=== PATIENT | male | born 1940 | race Caucasian/White ===

== ENCOUNTER → 2018-03-31 | Outpatient (CLI) | payer MEDICARE, MEDICAID ==
[2018-03-31 13:56] LABS: PROSTATIC SPECIFIC AG MONITOR < 0.01 NG/ML (< 4.0)
== END ==
LOC: M SMT 10:25
DX: Z85.46 Personal history of malignant neoplasm of prostate (principal)
CPT/HCPCS: 84153

== ENCOUNTER → 2021-01-07 | Outpatient (REF) | payer MEDICARE, MEDICAID ==
[2021-01-07 15:35] LABS: HEMATOCRIT 36.5 % (42.0-52.0); HEMOGLOBIN 11.1 g/dl (13.5-17.5); MEAN CORPUSCULAR HEMOGLOBIN 31.5 pg (27.0-33.0); MEAN CORPUSCULAR HGB CONC 30.4 g/dl (32.0-36.5); MEAN CORPUSCULAR VOLUME 103.7 fl (80.0-96.0); PLATELET COUNT, AUTOMATED 921 10^3/uL (150-450); RED BLOOD COUNT 3.52 10^6/uL (4.30-6.10); WHITE BLOOD COUNT 12.4 10^3/uL (4.0-10.0)
[2021-01-07 16:01] LABS: BLOOD UREA NITROGEN 25 MG/DL (7-18); CARBON DIOXIDE LEVEL 24 MEQ/L (21-32); CHLORIDE LEVEL 103 MEQ/L (98-107); CREATININE FOR GFR 0.76 MG/DL (0.70-1.30); GLOMERULAR FILTRATION RATE > 60.0 (>35); GLUCOSE, FASTING 137 MG/DL (70-100); POTASSIUM SERUM 5.3 MEQ/L (3.5-5.1); SODIUM LEVEL 139 MEQ/L (136-145)
== END ==
PROVIDERS: ATTEND Internal Medicine
DX: Z79.899 Other long term (current) drug therapy (principal)

== ENCOUNTER → 2021-01-26 | Outpatient (REF) | payer MEDICARE, MEDICAID ==
[~2021-01-26] MED LIST: ACET-683 PEG; ACET-683 PO; ACET1TAB55 PO; ALBU83IN INH; BACITAB PEG; BACITAB PO; CEFT1INJ5 IJ; DULC10SU2 PR; DULC5TAB PO; ELIQ5TAB PEG; ELIQ5TAB PO; ENEMENE PR; ENSU1LIQ36 PO; ESOM1CAP5 PO; FEVE650S3 PR; GNPLIQ18 PO; IPRA0.00 NEB; LEVA0.6322 INH; LEVA0.636 INH; LEVA1.25 INH; MECL-136 PO; METO1TAB87 PEG; METO1TAB87 PO; METO50TA7 PO; MILK400S12 PO; MILKSUS3 PEG; MILKSUS3 PO; MM S100C PO; MOM30SS PO; MOXI1TAB PO; MOXI400T11 PO; OLAN1TAB16 PEG; OLAN1TAB16 PO; PRED10TA2 PO; ROBI1CAP PO; SENN-23 PEG; SENN-23 PO; SENN1TAB41 PO; VENTAER INH; ZITH250T PO; [UNRECOGNIZED DRUG - CODE] PEG; [UNRECOGNIZED DRUG - CODE] PO
[2021-01-26 15:21] LABS: BASO # 0.1 10^3/uL (0.0-0.2); BASO % 0.2 % (0.0-1.0); EOS # 0.2 10^3/uL (0.0-0.5); EOS % 0.9 % (0.0-3.0); HEMATOCRIT 38.6 % (42.0-52.0); HEMOGLOBIN 11.5 g/dl (13.5-17.5); LYMPH # 2.7 10^3/uL (1.5-5.0); MEAN CORPUSCULAR HEMOGLOBIN 31.3 pg (27.0-33.0); MEAN CORPUSCULAR HGB CONC 29.8 g/dl (32.0-36.5); MEAN CORPUSCULAR VOLUME 104.9 fl (80.0-96.0); MONO # 2.2 10^3/uL (0.0-0.8); MONO % 9.1 % (2.0-8.0); NEUTROPHILS % 77.9 % (36.0-66.0); PLATELET COUNT, AUTOMATED 636 10^3/uL (150-450); RED BLOOD COUNT 3.68 10^6/uL (4.30-6.10)
[2021-01-26 15:52] LABS: WHITE BLOOD COUNT 24.4 10^3/uL (4.0-10.0)
[2021-01-26 16:02] LABS: BLOOD UREA NITROGEN 20 MG/DL (7-18); CALCIUM LEVEL 8.7 MG/DL (8.8-10.2); CARBON DIOXIDE LEVEL 30 MEQ/L (21-32); CHLORIDE LEVEL 104 MEQ/L (98-107); CREATININE FOR GFR 0.89 MG/DL (0.70-1.30); GLOMERULAR FILTRATION RATE > 60.0 (>35); GLUCOSE, FASTING 92 MG/DL (70-100); NT-PRO BNP 923 PG/ML (<450); POTASSIUM SERUM 4.7 MEQ/L (3.5-5.1); SODIUM LEVEL 141 MEQ/L (136-145)
== END ==
PROVIDERS: ATTEND Internal Medicine
DX: R05 Cough (principal); I51.7 Cardiomegaly; M85.88 Other specified disorders of bone density and structure, other site; Z87.81 Personal history of (healed) traumatic fracture

== ENCOUNTER → 2021-01-26 | Outpatient (REF) | payer MEDICARE, MEDICAID ==
--- NOTE | 2021-01-26 16:50 | REP ---
INDICATION: COUGH. COMPARISON: No comparison study. TECHNIQUE: Two views.. FINDINGS: The lungs are exposed at a relatively low level of inspiration. There are old healed rib fractures on the left and there is an old healed clavicle fracture on the left. Diffuse osteopenia is seen. The thoracic aorta is tortuous. The heart is mildly enlarged. There are increased parenchymal markings in the lung bases bilaterally consistent with bibasilar infiltrates. Pulmonary vasculature is not increased. IMPRESSION: Bibasilar infiltrate pattern. Cardiomegaly. Old healed fractures on the left.. <Electronically signed by Roberto Bean > 01/26/21 [id number]
== END ==
PROVIDERS: ATTEND Internal Medicine
DX: I51.7 Cardiomegaly (principal); M85.88 Other specified disorders of bone density and structure, other site; Z87.81 Personal history of (healed) traumatic fracture

== ENCOUNTER → 2021-01-28 | Outpatient (REF) | payer MEDICARE, MEDICAID ==
[~2021-01-28] MED LIST changes: -ACET-683 PEG; -ACET1TAB55 PO; -BACITAB PEG; -BACITAB PO; -DULC10SU2 PR; -ELIQ5TAB PEG; -ENSU1LIQ36 PO; -ESOM1CAP5 PO; -FEVE650S3 PR; -GNPLIQ18 PO; -IPRA0.00 NEB; -LEVA0.6322 INH; -LEVA0.636 INH; -LEVA1.25 INH; -METO1TAB87 PEG; -METO1TAB87 PO; -MILKSUS3 PEG; -MILKSUS3 PO; -MOM30SS PO; -MOXI1TAB PO; -MOXI400T11 PO; -OLAN1TAB16 PEG; -PRED10TA2 PO; -SENN-23 PEG; -SENN-23 PO; -SENN1TAB41 PO; -[UNRECOGNIZED DRUG - CODE] PEG
[2021-01-28 10:53] LABS: HEMATOCRIT 38.1 % (42.0-52.0); HEMOGLOBIN 11.4 g/dl (13.5-17.5); MEAN CORPUSCULAR HEMOGLOBIN 31.2 pg (27.0-33.0); MEAN CORPUSCULAR HGB CONC 29.9 g/dl (32.0-36.5); MEAN CORPUSCULAR VOLUME 104.4 fl (80.0-96.0); PLATELET COUNT, AUTOMATED 652 10^3/uL (150-450); RED BLOOD COUNT 3.65 10^6/uL (4.30-6.10); WHITE BLOOD COUNT 12.4 10^3/uL (4.0-10.0)
[2021-01-28 11:21] LABS: BLOOD UREA NITROGEN 24 MG/DL (7-18); CALCIUM LEVEL 8.8 MG/DL (8.8-10.2); CARBON DIOXIDE LEVEL 28 MEQ/L (21-32); CHLORIDE LEVEL 105 MEQ/L (98-107); CREATININE FOR GFR 0.94 MG/DL (0.70-1.30); GLOMERULAR FILTRATION RATE > 60.0 (>35); GLUCOSE, FASTING 177 MG/DL (70-100); POTASSIUM SERUM 4.2 MEQ/L (3.5-5.1); SODIUM LEVEL 141 MEQ/L (136-145)
== END ==
PROVIDERS: ATTEND Internal Medicine
DX: I48.91 Unspecified atrial fibrillation (principal)

== ENCOUNTER 2021-01-31 20:24 | Inpatient (IN) | payer MEDICARE, MEDICAID ==
[~2021-01-31] VITALS: Ht 167.6 cm; Wt 73.2 kg
[2021-01-31] MEDS ORDERED: METO50TA7 PO (21:15)
[2021-01-31] MEDS ORDERED: ALBU83IN INH (21:15)
[2021-01-31] MEDS ORDERED: ROBI1CAP PO (21:15)
[2021-01-31] MEDS ORDERED: ZITH250T PO (21:15)
[2021-01-31] MEDS ORDERED: OLAN1TAB16 PO (21:15)
[2021-01-31] MEDS ORDERED: ENEMENE PR (21:15)
[2021-01-31] MEDS ORDERED: ACET-683 PO (21:15)
[2021-01-31] MEDS ORDERED: MILK400S12 PO (21:15)
[2021-01-31] MEDS ORDERED: CEFT1INJ5 IJ (21:15)
[2021-01-31] MEDS ORDERED: VENTAER INH (21:15)
[2021-01-31] MEDS ORDERED: ELIQ5TAB PO (21:15)
[2021-01-31] MEDS ORDERED: MM S100C PO ×2 (21:15)
[2021-01-31] MEDS ORDERED: MECL-136 PO (21:15)
[2021-01-31] MEDS ORDERED: DULC5TAB PO (21:15)
[2021-01-31 21:35] LABS: BASO # 0.1 10^3/uL (0.0-0.2); BASO % 0.3 % (0.0-1.0); EOS # 0.3 10^3/uL (0.0-0.5); EOS % 1.4 % (0.0-3.0); HEMATOCRIT 40.7 % (42.0-52.0); HEMOGLOBIN 12.5 g/dl (13.5-17.5); LYMPH # 2.5 10^3/uL (1.5-5.0); MEAN CORPUSCULAR HGB CONC 30.7 g/dl (32.0-36.5); MONO # 1.4 10^3/uL (0.0-0.8); MONO % 6.5 % (2.0-8.0); NEUTROPHILS # 16.6 10^3/uL (1.5-8.5); NEUTROPHILS % 79.1 % (36.0-66.0); PLATELET COUNT, AUTOMATED 717 10^3/uL (150-450); RED BLOOD COUNT 4.03 10^6/uL (4.30-6.10); WHITE BLOOD COUNT 20.9 10^3/uL (4.0-10.0)
[2021-01-31 22:09] LABS: ALBUMIN 3.4 GM/DL (3.2-5.2); ALT/SGPT 21 U/L (12-78); BILIRUBIN,DIRECT < 0.1 MG/DL (0.0-0.2); BILIRUBIN,TOTAL 0.3 MG/DL (0.2-1.0); BLOOD UREA NITROGEN 21 MG/DL (7-18); CALCIUM LEVEL 9.1 MG/DL (8.8-10.2); CARBON DIOXIDE LEVEL 28 MEQ/L (21-32); CHLORIDE LEVEL 104 MEQ/L (98-107); CREATININE FOR GFR 0.76 MG/DL (0.70-1.30); GLOMERULAR FILTRATION RATE > 60.0 (>35); GLUCOSE, FASTING 128 MG/DL (70-100); NT-PRO BNP 388 PG/ML (<450); POTASSIUM SERUM 5.3 MEQ/L (3.5-5.1); SODIUM LEVEL 138 MEQ/L (136-145); TOTAL PROTEIN 8.1 GM/DL (6.4-8.2)
[2021-01-31] MEDS ORDERED: IPRATROPIUM 0.5MG/ALBUTEROL 2.5MG INH SOL UD 3ML (DUONEB) NEB ONE (22:10)
--- NOTE | 2021-01-31 22:21 | REPVR ---
PROCEDURE INFORMATION: Exam: XR Chest Exam date and time: 01/31/2021 9:28 PM Age: 80 years old Clinical indication: Dyspnea/cough TECHNIQUE: Imaging protocol: XR of the chest. Views: 1 view. COMPARISON: CR Chest, 2 view PA, Lat 01/26/2021 4:38 PM (The report from this study was not available for review at the time of this interpretation.) FINDINGS: Lungs: There are bibasilar airspace opacities, without significant change compared to the prior chest x-ray on 01/26/2021. The lung volumes are low. No pulmonary edema is noted. Pleural spaces: Unremarkable. No pleural effusion. No pneumothorax. Heart/Mediastinum: Unremarkable. No cardiomegaly. Vasculature: There are atherosclerotic calcifications of the aortic arch. Bones/joints: There are old healed bilateral rib fractures. There are degenerative changes involving the thoracic spine. IMPRESSION: Bibasilar airspace opacities, without significant change compared to the prior chest x-ray on 01/26/2021, which may represent pneumonia or atelectasis. Electronically signed by: Dino Sanchez On 01/31/2021 22:21:08 PM
[2021-01-31 23:36] LABS: RSV AMPLIFICATION NEGATIVE (NEGATIVE)
[2021-01-31 23:48] LABS: APPEARANCE, URINE CLOUDY (CLEAR); BACTERIA, URINE AUTO 1+ (NEGATIVE); BILIRUBIN, URINE AUTO NEGATIVE (NEGATIVE); BLOOD, URINE BLOOD 2+ (NEGATIVE); COLOR, URINE YELLOW (YELLOW); GLUCOSE, URINE (UA) AUTO NEGATIVE (NEGATIVE); KETONE, URINE AUTO NEGATIVE (NEGATIVE); LEUKOCYTE ESTERASE, URINE AUTO 3+ (NEGATIVE); MUCUS, URINE SMALL (NEGATIVE); NITRITE, URINE AUTO NEGATIVE (NEGATIVE); PROTEIN, URINE AUTO 1+ mg/dL (NEGATIVE); RBC, URINE AUTO 60 /HPF (0-3); SPECIFIC GRAVITY URINE AUTO 1.018 (1.002-1.035); SQUAMOUS EPITHELIAL CELL UR AU 0 /HPF (0-6); UROBILINOGEN, URINE AUTO 0.2 mg/dL (0.0-2.0); WBC, URINE AUTO 112 /HPF (0-3)
[2021-02-01] MEDS ORDERED: [UNRECOGNIZED DRUG - CODE] PO (00:34)
[2021-02-01] MEDS ORDERED: HOME MED LIST COMPLETE! XX SCH (00:35)
[2021-02-01] MEDS ORDERED: NS 1,000 ML IV SCH (01:55)
[2021-02-01] MEDS ORDERED: ALBUTEROL SULFATE 2.5 MG/0.5 ML INH NEB SOLN INH PRN (02:05)
[2021-02-01] MEDS ORDERED: methylPREDNISolone 125MG 2ML VIAL IV ONE (02:05)
[2021-02-01] MEDS ORDERED: BISACODYL 5 MG TAB PO PRN (02:05)
[2021-02-01 03:20] VITALS: BP 151/83
[2021-02-01] MEDS: LEVALBUTEROL 1.25 MG/0.5 ML CONCENTRATE NEB NEB SCH ×2 (04:00→07:22)
[2021-02-01] MEDS: IPRATROPIUM 0.02% SOLN 0.5MG 2.5ML NEB NEB SCH ×2 (04:00→07:22)
--- NOTE | 2021-02-01 04:34 | HPEPDOC ---
General Date of Admission 02/01/2021 Date of Service: Feb 01, 2021 Chief Complaint The patient is a 80-year-old male admitted with a reason for visit of Acute Respiratory Failure, Aspiration Pneumonia from long-term. Source: Patient, RN notes reviewed History of Present Illness [place] is an 80-year-old white male with significant history of A. fib, OA, prostate CA, chronic indwelling Mcdonald, hypertension, dementia and smoking who reportedly presents with shortness of breath and cough after reported choking episode with food at [facility]. Patient alert and oriented x1-2. He is a very poor historian. Audible wheezing during exam and abdominal breathing. SPO2 saturation 100% on 3 L nasal cannula. Reportedly, he had Covid pneumonia in September and has been requiring oxygen nasal cannula 2 L. Of note, chest x-ray without significant change from previous which showed bibasilar opacities atelectasis versus pneumonia; + leukocytosis 26.2, lactic pending. ABG pending Patient will be admitted for further evaluation management of presenting concerns. Home Medications Scheduled Acetaminophen (Acetaminophen) 500 Mg Tablet, 1,000 MG PO TID, (Reported) Albuterol Sulf (Albuterol Sulfate) 2.5 Mg/3 Ml Vial.neb, 2.5 MG INH Q6HP, (Reported) Apixaban (Eliquis) 5 Mg Tablet, 5 MG PO BID, (Reported) Azithromycin (Zithromax) 250 Mg Tablet, 250 MG PO DAILY, (Reported) started 01/28/21 x 4 days Bisacodyl (Dulcolax) 5 Mg Tablet.dr, 10 MG PO DAILYPRN, (Reported) Ceftriaxone Sodium (Ceftriaxone) 1 Gm Vial, 1 GM IJ DAILY, (Reported) Docusate Sodium (Stool Softener) 100 Mg Capsule, 100 MG PO DAILY, (Reported) Guaifenesin/Dextromethorphan (Adult Wal-Tussin Dm Syrup) 118 Ml Syrup, 20 ML PO TID, (Reported) Magnesium Hydroxide (Milk of Magnesia) 400 Mg/5 Ml Oral.susp, 2,400 MG PO DAILYPRN, (Reported) Metoprolol Tartrate (Metoprolol Tartrate) 50 Mg Tablet, 50 MG PO BID, (Reported) Olanzapine (Olanzapine) 5 Mg Tablet, 5 MG PO DAILY, (Reported) Scheduled PRN Albuterol Sulfate (Ventolin Hfa) 18 Gm Hfa.aer.ad, 4 PUFFS INH QID PRN for DYSPNEA, (Reported) Meclizine HCl (Meclizine HCl) 12.5 Mg Tablet, 12.5 MG PO BIDP PRN for VERTIGO/DIZZINESS, (Reported) Miscellaneous Medications Sodium Phosphate,[place]-Dibasic (Enema) 133 Ml Enema, 1 ELODIA HI, (Reported) Allergies Coded Allergies: No Known Drug Allergies (Verified Allergy, Unknown, 01/31/21) Past Medical History Medical History Prostate cancer, chronic indwelling Mcdonald, A. fib, dementia, smoking and tobacco abuse history, CVA, HDL Per chart review Surgical History "Pancreas removal" Per chart review, right and left hip surgery Social History * Smoker: former Smoker Alcohol: Denies Drugs: denies Recent Travel/Sick Contacts: Reports: Recent sick contacts (Patient arrives from [facility]); Denies: Recent travel Psychosocial History: No pertinent psych hx Patient recently treated for pneumonia Rocephin and doxycycline; arrives from [facility]. A-FIB/CHADSVASC A-FIB History Current/History of A-Fib/PAF?: Yes Current PO Anticoag Therapy: Yes Review of Systems Other systems Patient poor historian Physical Examination General Exam: Positive: Alert, Cooperative, Mild Distress Eye Exam: Positive: PERRLA, Conjunctiva & lids normal, EOMI; Negative: Sclera icteric ENT Exam: Positive: Atraumatic, Mucous membr. moist/pink, Pharynx Normal Neck Exam: Positive: Supple; Negative: JVD, thyromegaly Chest Exam: Positive: Wheezing Heart Exam: Positive: Tachycardic Telemetry: Positive: Atrial fibrillation Abdomen Exam: Positive: Normal bowel sounds, Soft; Negative: Tenderness, Hepatospenomegaly Extremity Exam: Positive: Edema (1+ edema), Normal pulses; Negative: Clubbing, Cyanosis, Tenderness Skin Exam: Positive: Nl turgor and temperature; Negative: Breakdown, Lesion Neuro Exam: Positive: Normal Speech, Sensation Intact Psych Exam: Positive: Mood NL; Negative: Memory Intact Vital Signs Vital Signs Date Time Temp Pulse Resp B/P (MAP) Pulse Ox O2 Delivery O2 Flow Rate FiO2 02/01/21 03:00 100 02/01/21 02:30 18 132/78 (96) 93 Nasal Cannula 3.0 01/31/21 20:30 99.2 Laboratory Data Labs 24H Laboratory Tests 2 01/31/21 21:30: Immature Granulocyte % (Auto) 0.7, Neutrophils (%) (Auto) 79.1H, Lymphocytes (%) (Auto) 12.0L, Monocytes (%) (Auto) 6.5, Eosinophils (%) (Auto) 1.4, Basophils (%) (Auto) 0.3, Neutrophils # (Auto) 16.6H, Lymphocytes # (Auto) 2.5, Monocytes # (Auto) 1.4H, Eosinophils # (Auto) 0.3, Basophils # (Auto) 0.1, Nucleated Red Blood Cells % (auto) 0.2H, POC Troponin I (Misc) 0.01, Anion Gap 6L, Glomerular Filtration Rate > 60.0, Calcium Level 9.1, Total Bilirubin 0.3, Direct Bilirubin < 0.1, Aspartate Amino Transf (AST/SGOT) 33, Alanine Aminotransferase (ALT/SGPT) 21, Alkaline Phosphatase 111, TO-Yqk-O-Type Natriuretic Peptide 388, Total Protein 8.1, Albumin 3.4, Albumin/Globulin Ratio 0.7 01/31/21 22:40: Coronavirus (COVID-19)(PCR) NEGATIVE, Influenza Type A (RT-PCR) NEGATIVE, Influenza Type B (RT-PCR) NEGATIVE, Respiratory Syncytial Virus (PCR) NEGATIVE 01/31/21 23:31: Urine Color YELLOW, Urine Appearance CLOUDYH, Urine pH 5.0, Urine Specific [place] 1.018, Urine Protein 1+H, Urine Glucose (Auto)(UA) NEGATIVE, Urine Ketones (Auto) NEGATIVE, Urine Blood 2+H, Urine Nitrite NEGATIVE, Urine Bilirubin NEGATIVE, Urine Urobilinogen 0.2, Urine Leukocyte Esterase (Auto) 3+H, Urine WBC (Auto) 112H, Urine RBC (Auto) 60H, Urine Hyaline Casts (Auto) 0, Urine Bacteria (Auto) 1+H, Urine Squamous Epithelial Cells 0, Urine Mucus (Auto) SMALL, Urine Sperm (Auto) CBC/BMP Laboratory Tests 01/31/21 21:30 RAD Interpretation STUDY: CXR Rad Actions: Report Reviewed RAD Interpretation: Unchanged (Compared to January 26, 2021 per radiology) Assessment/Plan 1. Acute respiratory failure secondary to aspiration in patient with recent pneumonia: Likely underlying COPD as patient former smoker. Patient with excessive wheeze during exam. -Monitor patient, respiratory status, breathing treatments every 4 hours. Solu- Medrol. -Patient recently finished azithromycin and still had another dose of Rocephin prior to completion. Given patient leukocytosis and worsening work of breathing with insult of aspiration -will expand coverage to Vanco and Zosyn. Check pro- Joshua, lactic and blood cultures; consider de-escalation accordingly. -N.p.o., aspiration precautions and appreciate POND SCALER evaluation. 2. Hyperkalemia, mild: K5.3 unknown last BM. Gently hydrate patient, recheck lab. Consider Kayexalate dose pend bedside swallow eval. 3. A. fib: Patient mildly tachycardic 105 monitor, telemetry. Continue home meds. Patient may require IV for an interim as he is n.p.o. given aspiration precautions. 4. Chronic indwelling Mcdonald in patient with history of prostate cancer: Monitor patient, I's and O's. He has a history of pulling out his catheter. Check UA. 5. Right hip pain: Patient is poor historian but does report trouble moving right leg. He is obviously deconditioned but trouble with range of motion as patient very stiff. Given per chart review history of right and left hip surgeries; will obtain x-ray to ensure patient can safely work physical therapy 6. Dementia and deconditioning: Monitor patient, fall risk. PT for therapeutic purposes. De-escalation techniques as required. DVT: SCDs and OAC CODE STATUS: Full Dispo: Anticipate back to [place] once patient medically stable Plan / VTE VTE Prophylaxis Ordered?: Yes TOSHIA BLANCO NP Feb 01, 2021 04:10
[2021-02-01] MEDS ORDERED: FLUID PLACE HOLDER IV SCH (04:55)
[2021-02-01] MEDS ORDERED: VANCOMYCIN HCL IV SCH (04:55)
[2021-02-01 05:18] LABS: BASO # 0.1 10^3/uL (0.0-0.2); BASO % 0.3 % (0.0-1.0); EOS # 0.1 10^3/uL (0.0-0.5); EOS % 0.5 % (0.0-3.0); HEMATOCRIT 36.5 % (42.0-52.0); HEMOGLOBIN 11.4 g/dl (13.5-17.5); LYMPH # 2.7 10^3/uL (1.5-5.0); LYMPH % 11.2 % (24.0-44.0); MEAN CORPUSCULAR HEMOGLOBIN 31.6 pg (27.0-33.0); MEAN CORPUSCULAR HGB CONC 31.2 g/dl (32.0-36.5); MEAN CORPUSCULAR VOLUME 101.1 fl (80.0-96.0); MONO # 1.3 10^3/uL (0.0-0.8); MONO % 5.5 % (2.0-8.0); NEUTROPHILS # 19.3 10^3/uL (1.5-8.5); NEUTROPHILS % 81.7 % (36.0-66.0); PLATELET COUNT, AUTOMATED 676 10^3/uL (150-450); RED BLOOD COUNT 3.61 10^6/uL (4.30-6.10); WHITE BLOOD COUNT 23.7 10^3/uL (4.0-10.0)
[2021-02-01] MEDS: PIPERACILLIN/TAZOBACTAM SOD 4.5 GM in D5W MINI-BAG PLUS 50 ML IV SCH ×4 (05:23→23:52)
[2021-02-01 05:45] LABS: BLOOD UREA NITROGEN 19 MG/DL (7-18); CALCIUM LEVEL 8.7 MG/DL (8.8-10.2); CARBON DIOXIDE LEVEL 28 MEQ/L (21-32); CHLORIDE LEVEL 106 MEQ/L (98-107); CREATININE FOR GFR 0.71 MG/DL (0.70-1.30); GLOMERULAR FILTRATION RATE > 60.0 (>35); GLUCOSE, FASTING 124 MG/DL (70-100); NT-PRO BNP 700 PG/ML (<450); POTASSIUM SERUM 3.9 MEQ/L (3.5-5.1); SODIUM LEVEL 139 MEQ/L (136-145)
[2021-02-01] MEDS: VANCOMYCIN HCL 1,000 MG, VIAL MATE ADAPTER 1 EACH in NS 250 ML IV SCH ×2 (06:28→18:01)
[2021-02-01] MEDS ORDERED: VANCOMYCIN HCL 500 MG in D5W MINI-BAG PLUS 100 ML IV ONE (07:00)
[2021-02-01 08:00] VITALS: BP 127/67
--- NOTE | 2021-02-01 08:59 | REP ---
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 COMPARISON: None. TECHNIQUE: Frontal and frogleg lateral views of the right hip were obtained. FINDINGS: There has been medullary nail and compression screw fixation of an intertrochanteric fracture of the right femur. There is no evidence of acute fracture. There is mild arthritis of the right hip. There are vascular calcifications in the right hemipelvis and right thigh. Fiducial markers are noted in the area of the prostate gland. IMPRESSION: Status post ORIF, intertrochanteric fracture right femur. Mild arthritis of the right hip. Other findings as noted. <Electronically signed by Evgeny Alvarado > 02/01/21 [id number]
[2021-02-01] MEDS: OLANZapine 5 MG TAB PO SCH (09:00)
[2021-02-01] MEDS: METOPROLOL TART 50 MG TAB PO SCH ×2 (09:00→20:33)
[2021-02-01] MEDS: APIXABAN 5 MG TAB (ELIQUIS) PO SCH ×2 (09:00→20:33)
[2021-02-01] MEDS: LACTOBACILLUS ACIDOPHILUS CAP (BACID) PO SCH (09:00)
[2021-02-01] MEDS: guaiFENesin DM LIQ 10ML UD PO SCH ×4 (09:00→20:33)
[2021-02-01] MEDS: DOCUSATE SODIUM 100MG CAPSULE PO SCH (09:00)
[2021-02-01] MEDS: methylPREDNISolone 40MG 1ML VIAL IV SCH ×2 (10:42→18:01)
[2021-02-01 11:10] LABS: FERRITIN 138 NG/ML (26-388); IRON (FE) 19 UG/DL (65-175); PERCENT SATURATION 8.2 % (19.7-50.0); TOTAL IRON BINDING CAPACITY 233 UG/DL (250-450)
[2021-02-01] MEDS ORDERED: LEVALBUTEROL 1.25 MG/0.5 ML CONCENTRATE NEB INH PRN (11:10)
--- NOTE | 2021-02-01 11:10 | IPNPDOC ---
Text Note Date of Service The patient was seen on 02/01/21. NOTE Subjective: Patient is an 80-year-old male with a PMHx of Dementia, A. fib (on Eliquis), HTN, Hx of CVA, DLP, Prostate CA, Pancreas removal?, Chronic indw elling Mcdonald, Hx of COVID19 PNA (09/2020), who presented to the ER after reporting a choking episode while at [facility]. Patient was noted to be hypoxic and was brought to the emergency room for further evaluation. In the emergency room, patient had an x-ray completed that revealed evidence of bibasilar opacities suggestive of atelectasis versus pneumonia. Patient was admitted to the hospital service for further evaluation and treatment. Patient was seen and examined at the bedside. Currently patient is laying in bed, appears to be comfortable, not in any acute distress, minimally conversive but denies any significant pain. Objective: Vitals (See below) General: Lying in bed, no acute distress, comfortable, AAOx3 HEENT: NC, AT CVS: +S1S2 Lungs: Fair air entry b/l, -w/r/r Abdomen: Soft, ND, NT Extremities: Trace LE edema, - Calf tenderness Imaging: CXR 01/26: Bibasilar infiltrate pattern. Cardiomegaly. Old healed fractures on the left.. CXR 01/31: Bibasilar airspace opacities, without significant change compared to the prior chest x-ray on 01/26/2021, which may represent pneumonia or atelectasis. R hip XR 02/01: Status post ORIF, intertrochanteric fracture right femur. Mild arthritis of the right hip. Other findings as noted. Assessment and plan: Shortness of breath / Acute hypoxic respiratory failure - possibly 2/2 PNA / aspiration, possibly 2/2 suspected COPD exacerbation - Currently patient appears to be breathing relatively fine - Currently is on 3 L nasal cannula oxygen - Imaging noted above - Blood cultures 02/01: Pending - Will order sputum cultures - c/w Vancomycin and Zosyn (Day #1) Suspected COPD exacerbation - c/w Solumedrol - c/w inhaled therapy as ordered Suspected aspiration - Currently NPO; will have bedside swallow evaluation today if possible - Speech therapy will be consulted s/p Hyperkalemia Chronic A. fib - c/w rate control Metoprolol - c/ full anticoagulation with Eliquis Chronic indwelling Mcdonald 2/2 prostate cancer - UA positive for infection on 01/26: Multiple organisms noted - Repeat UA pending Right hip pain / Deconditioning - Imaging noted above - c/w Tylenol - c/w PT and OT Dementia / Behavioral problems - c/w Olanzapine GI prophylaxis - c/w DVT prophylaxis - c/w full anticoagulation with Eliquis Code status: - Full code Disposition: - Awaiting clinical improvement Lloyd COLLADO, I+O VSLloyd I+O Laboratory Tests 01/31/21 21:30 02/01/21 04:59 Vital Signs Date Time Temp Pulse Resp B/P (MAP) Pulse Ox O2 Delivery O2 Flow Rate FiO2 02/01/21 08:00 97.4 67 18 127/67 (87) 96 Nasal Cannula 3.0 I&O- Last 24 Hours up to 6 AM 02/01/21 06:00 Intake Total 0 ml Output Total 475 ml Balance -475 ml HSANNON MERCER MD Feb 01, 2021 11:10
[2021-02-01] MEDS: LEVALBUTEROL 1.25 MG/0.5 ML CONCENTRATE NEB INH SCH ×3 (11:29→20:00)
[2021-02-01 12:00] VITALS: BP_SYST 142
[2021-02-01 16:00] VITALS: BP 150/74
[2021-02-01 20:00] VITALS: BP 128/63
[2021-02-02] VITALS: BP 122/59
[2021-02-02] MEDS: methylPREDNISolone 40MG 1ML VIAL IV SCH ×3 (02:42→19:00)
[2021-02-02 04:00] VITALS: BP 154/69
[2021-02-02 05:18] LABS: BASO % 0.2 % (0.0-1.0); HEMATOCRIT 37.2 % (42.0-52.0); HEMOGLOBIN 11.5 g/dl (13.5-17.5); LYMPH # 1.8 10^3/uL (1.5-5.0); LYMPH % 11.2 % (24.0-44.0); MEAN CORPUSCULAR HEMOGLOBIN 30.7 pg (27.0-33.0); MEAN CORPUSCULAR HGB CONC 30.9 g/dl (32.0-36.5); MEAN CORPUSCULAR VOLUME 99.5 fl (80.0-96.0); MONO # 0.6 10^3/uL (0.0-0.8); MONO % 3.7 % (2.0-8.0); NEUTROPHILS # 13.1 10^3/uL (1.5-8.5); NEUTROPHILS % 83.2 % (36.0-66.0); PLATELET COUNT, AUTOMATED 728 10^3/uL (150-450); RED BLOOD COUNT 3.74 10^6/uL (4.30-6.10); WHITE BLOOD COUNT 15.7 10^3/uL (4.0-10.0)
[2021-02-02 05:33] LABS: VANCOMYCIN LEVEL TROUGH 19.6 UG/ML (10.0-20.0)
[2021-02-02] MEDS: PIPERACILLIN/TAZOBACTAM SOD 4.5 GM in D5W MINI-BAG PLUS 50 ML IV SCH (05:37)
[2021-02-02] MEDS: VANCOMYCIN HCL 1,000 MG, VIAL MATE ADAPTER 1 EACH in NS 250 ML IV SCH (06:09)
[2021-02-02 07:58] VITALS: BP 136/61
--- NOTE | 2021-02-02 08:13 | IPNPDOC ---
Text Note Date of Service The patient was seen on 02/02/21. Patient was admitted to the hospital for Pneumonia on 02/01/21. Patient was seen by medical team laying supine on his bed. Patient appeared to be in no distress, but was agitated and uncooperative. Review of systems: Patient denies headaches, chest pain, palpitations, SOB, difficulty breathing, extremity pain, ABD pain, Urinary pain, swelling of his extremities, tingling or numbness. Physical exam: General: Patients's temperature was normal. HEENT: On visual inspection thyroid and lymph nodes appear normal. Lungs; Patient's lung sounds are clear and equal BL. SPO2 is 88% at assessment - normal for COPD Heart: Telemetry showed the patient continues to be in Afib but without tachycardia - HR was in the 80s at rest. On auscultation of heart sounds a systolic ejection murmur is found. ABD: No pain with palpation and normal bowel sounds on auscultation Extremities: Patient pulses pedal and posterior tibial were both 2/4 and equal BL. Psych: Patient is alert and oriented *2 - patient could not say where he was, but knew that it was morning and knew who the president was. Imaging: CXR 01/26: Bibasilar infiltrate pattern. Cardiomegaly. Old healed fractures on the left. CXR 01/31: Bibasilar airspace opacities, without significant change compared to the prior chest x-ray on 01/26/2021, which may represent pneumonia or atelectasis. R hip XR 02/01: Status post ORIF, intertrochanteric fracture right femur. Mild arthritis of the right hip. Other findings as noted. Assessment: 80 year old male with previous history of COPD, Afib, Dementia, A. fib (on Eliquis), HTN, Hx of CVA, DLP, Prostate CA, Pancreas removal?, Chronic indwelling Mcdonald, Hx of COVID19 PNA (09/2020). Patient presented to the ED from nursing facility because of difficulty breathing. Patient was found to have pneumonia based on clinical symptoms and Chest X-ray. Patient was started on Zosyn and Vancomycin to resolve infection. Patient's difficulty breathing has resolved. Patient's lab work does show Leukocytosis and Thrombocytosis which co uld be from pneumonia. Patient should be followed up after resolution of antibiotics to make sure lab values go back down. Plan: Shortness of breath / Acute hypoxic respiratory failure - possibly 2/2 PNA / aspiration, possibly 2/2 suspected COPD exacerbation - Currently patient appears to be breathing relatively fine - Currently is on 3 L nasal cannula oxygen as needed - when assessed patient was not using oxygen - At baseline patient does not use oxygen - Imaging noted above - Blood cultures 02/01: Pending - sputum cultures - gram stain - Gram positive cocci in clusters or chains, - Will start Moxifloxacin; Will DC Vancomycin and Zosyn (Day #2) Leukocytosis and Thrombocytosis - Likely from Pneumonia - Patient should be followed up with after he finishes his prescription of antibiotics is finished to make sure elevated WBC and platelets resolves. If the leukocytosis and thrombocytosis does not resolve patient should be referred to [facility]. Suspected COPD exacerbation - c/w Solumedrol - c/w inhaled therapy as ordered Suspected aspiration - Patient was evaluated with swallow test and is able to take foods again without aspiration risk. s/p Hyperkalemia Chronic A. fib - c/w rate control Metoprolol - c/ full anticoagulation with Eliquis Chronic indwelling Mcdonald 2/2 prostate cancer - UA positive for infection on 01/26: Multiple organisms noted - Repeat UA pending Right hip pain - likely 2/2 recent R hip fracture and repair - Imaging noted above - c/w Tylenol - Patient is partial weight bearing to that leg as per orthopedic surgery in the past - Has been non-compliant with this in the past; is Julius lift at [facility] Dementia / Behavioral problems - c/w Olanzapine DVT prophylaxis - c/w full anticoagulation with Eliquis Code status: - Full code Disposition: - Depending on clinical symptoms patient may be discharged tomorrow. VS,Fishbone, I+O VS, Fishbone, I+O Laboratory Tests 02/02/21 04:40 Vital Signs Date Time Temp Pulse Resp B/P (MAP) Pulse Ox O2 Delivery O2 Flow Rate FiO2 02/02/21 07:58 98.4 86 24 136/61 (86) 91 Room Air 02/02/21 04:00 2.0 I&O- Last 24 Hours up to 6 AM 02/02/21 06:00 Intake Total 730 ml Output Total 1075 ml Balance -345 ml GME ATTESTATION GME ATTESTATION My faculty preceptor for this patient encounter was physically present during the encounter and was fully available. All aspects of the patient interview, examination, medical decision making process, and medical care plan development were reviewed and approved by the faculty preceptor. The faculty preceptor is aware and concurs with the plan as stated in the body of this note and will attest to such by his/her cosignature. ATTENDING NOTE I, Shannon Mercer, have independently examined this patient and performed my own physical exam, as well as reviewed the documentation and edited where necessary. I have discussed in detail with the resident / student the findings and plan of treatment as documented by the resident / student and edited their note. I agree with their findings and treatment plan and have edited their documentation. I will continue to follow the patient during this hospital stay. NORA GARCIA S-3 Feb 02, 2021 08:13 SHANNON MERCER MD Feb 02, 2021 14:09
[2021-02-02] MEDS: LEVALBUTEROL 1.25 MG/0.5 ML CONCENTRATE NEB INH SCH ×4 (08:18→19:31)
[2021-02-02 08:22] LABS: BLOOD UREA NITROGEN 27 MG/DL (7-18); CALCIUM LEVEL 9.1 MG/DL (8.8-10.2); CARBON DIOXIDE LEVEL 27 MEQ/L (21-32); CHLORIDE LEVEL 108 MEQ/L (98-107); CREATININE FOR GFR 1.02 MG/DL (0.70-1.30); GLOMERULAR FILTRATION RATE > 60.0 (>35); GLUCOSE, FASTING 139 MG/DL (70-100); POTASSIUM SERUM 4.7 MEQ/L (3.5-5.1); SODIUM LEVEL 142 MEQ/L (136-145)
[2021-02-02] MEDS: METOPROLOL TART 50 MG TAB PO SCH ×2 (09:00→21:08)
[2021-02-02] MEDS: LACTOBACILLUS ACIDOPHILUS CAP (BACID) PO SCH (10:28)
[2021-02-02] MEDS: OLANZapine 5 MG TAB PO SCH (10:28)
[2021-02-02] MEDS: DOCUSATE SODIUM 100MG CAPSULE PO SCH (10:28)
[2021-02-02] MEDS: APIXABAN 5 MG TAB (ELIQUIS) PO SCH ×2 (10:28→21:08)
[2021-02-02] MEDS: guaiFENesin DM LIQ 10ML UD PO SCH ×3 (10:29→21:08)
[2021-02-02] MEDS: MOXIFLOXACIN 400 MG TAB PO SCH (10:32)
--- NOTE | 2021-02-02 10:43 | REP ---
INDICATION: ACUTE RESP FAILURE; INTERVAL. COMPARISON: 01/31/2021 TECHNIQUE: AP and lateral. The technique utilized in obtaining the radiograph has magnified the cardiac silhouette and attenuated the interstitial markings. FINDINGS: The cardiomediastinal silhouette is unchanged. No acute patchy parenchymal opacities or pleural effusions have developed. Fibrotic changes are noted status quo. There is no change in the osseous structures. IMPRESSION: Chronic fibrotic changes are suspected with bibasilar predominance. Correlate clinically to rule out the possibility of acute disease superimposed upon chronic change. Consider PA view of the chest. <Electronically signed by Abelardo Shin > 02/02/21 [id number]
[2021-02-02 12:00] VITALS: BP 120/62
[2021-02-02 15:45] VITALS: BP 132/61
--- NOTE | 2021-02-02 19:34 | ECGEPIP ---
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
[2021-02-02 20:00] VITALS: BP 130/64
[2021-02-03] VITALS: BP 135/62
[2021-02-03] MEDS: methylPREDNISolone 40MG 1ML VIAL IV SCH (02:00)
[2021-02-03 04:00] VITALS: BP 150/70
[2021-02-03 04:08] LABS: BASO % 0.1 % (0.0-1.0); HEMATOCRIT 35.3 % (42.0-52.0); LYMPH # 1.4 10^3/uL (1.5-5.0); MEAN CORPUSCULAR HEMOGLOBIN 30.9 pg (27.0-33.0); MEAN CORPUSCULAR HGB CONC 31.2 g/dl (32.0-36.5); MEAN CORPUSCULAR VOLUME 99.2 fl (80.0-96.0); MONO # 0.9 10^3/uL (0.0-0.8); MONO % 4.3 % (2.0-8.0); NEUTROPHILS # 17.5 10^3/uL (1.5-8.5); NEUTROPHILS % 86.6 % (36.0-66.0); PLATELET COUNT, AUTOMATED 723 10^3/uL (150-450); RED BLOOD COUNT 3.56 10^6/uL (4.30-6.10); WHITE BLOOD COUNT 20.2 10^3/uL (4.0-10.0)
[2021-02-03 04:29] LABS: BLOOD UREA NITROGEN 38 MG/DL (7-18); C REACTIVE PROTEIN QUANTITATIV 3.62 MG/DL (0.00-0.30); CALCIUM LEVEL 8.8 MG/DL (8.8-10.2); CARBON DIOXIDE LEVEL 28 MEQ/L (21-32); CHLORIDE LEVEL 106 MEQ/L (98-107); GLOMERULAR FILTRATION RATE > 60.0 (>35); GLUCOSE, FASTING 146 MG/DL (70-100); POTASSIUM SERUM 4.8 MEQ/L (3.5-5.1); SODIUM LEVEL 141 MEQ/L (136-145)
[2021-02-03] MEDS: MOXIFLOXACIN 400 MG TAB PO SCH (06:52)
[2021-02-03] MEDS: LEVALBUTEROL 1.25 MG/0.5 ML CONCENTRATE NEB INH SCH ×2 (07:21→11:17)
[2021-02-03 08:29] VITALS: BP 165/80
[2021-02-03] MEDS: guaiFENesin DM LIQ 10ML UD PO SCH (08:32)
[2021-02-03 08:33] VITALS: BP 165/80
[2021-02-03] MEDS: METOPROLOL TART 50 MG TAB PO SCH (08:33)
[2021-02-03] MEDS: LACTOBACILLUS ACIDOPHILUS CAP (BACID) PO SCH (08:33)
[2021-02-03] MEDS: APIXABAN 5 MG TAB (ELIQUIS) PO SCH (08:33)
[2021-02-03] MEDS: DOCUSATE SODIUM 100MG CAPSULE PO SCH (08:33)
[2021-02-03] MEDS: OLANZapine 5 MG TAB PO SCH (08:33)
[2021-02-03] MEDS ORDERED: MOXI400T11 PO (08:50)
[2021-02-03] MEDS ORDERED: predniSONE 20 MG TAB PO SCH (09:00)
[2021-02-03 11:40] VITALS: BP 140/60
--- NOTE | 2021-02-03 15:43 | DS.PDOC ---
Discharge Summary General Date of Admission Jan 31, 2021 at 20:25 Date of Discharge 02/03/2021 Primary Care Physician: SUSANA ALANIZ DO Attending Physician: PAUL ESCOBEDO MD Discharge Summary PROCEDURES PERFORMED DURING STAY: None. ADMITTING DIAGNOSES: Acute respiratory failure secondary to aspiration Aspiration pneumonia Hyperkalemia Atrial fibrillation Chronic indwelling Mcdonald catheter Prostate cancer Dementia Deconditioning DISCHARGE DIAGNOSES: Aspiration pneumonia Leukocytosis and thrombocytosis Atrial fibrillation Chronic indwelling Mcdonald catheter Prostate cancer Dementia Deconditioning COMPLICATIONS/CHIEF COMPLAINT: Acute Respiratory Failure, Aspiration Pneumonia. HISTORY OF PRESENT ILLNESS: 80-year-old male with past medical history of atrial fibrillation, osteoarthritis, prostate cancer with chronic indwelling Mcdonald catheter, hypertension, dementia who presented with shortness of breath and cough. Patient was noted to have a choking episode while eating at [facility]. On presentation patient was alert and oriented x1 and proved to be poor historian. On examination, wheezing was noted in the lungs. Patient was requiring 3 L via nasal cannula to maintain oxygen saturations. Per documented history, patient had been requiring 2 L via nasal cannula since COVID-19 infection in September 2020. On evaluation in the ED, chest x-ray was not significantly changed from prior, but did show bilateral basilar opacities concerning for atelectasis versus pneumonia. Patient was noted to have a elevated white blood cell count. HOSPITAL COURSE: Patient was admitted to the hospital for treatment of acute hypoxic respiratory failure secondary to aspiration pneumonia. He was started on IV antibiotics with vancomycin and Zosyn. He was also started on IV steroids for concurrent COPD exacerbation. Patient was kept n.p.o. until he could be evaluated by speech language pathologist for aspiration. After speech therapy evaluation, the patient was started on a level 2 soft mechanical diet with thin liquids. Further work-up for his aspiration pneumonia did not reveal a clear bacterial cause. The patient was switched on to oral antibiotics with moxifloxacin. He will complete a 7-day course. The patient was also noted to be hyperkalemic on admission, which improved with hydration. On the day admission, the patient was no longer requiring oxygen supplementation to maintain saturations. Therefore, steroids were discontinued. The patient was discharged to return to [facility] to complete a 7- day course of antibiotics. During the patient's admission, he was also noted to have an elevated white blood cell count and elevated platelet count. A peripheral smear was ordered wh ich showed leukocytosis with a left shift, thrombocytosis, and macrocytic anemia. This could be related to the patient's acute infection, aspiration pneumonia, although myeloproliferative disorder cannot be ruled out. Follow-up on CBC and further testing may be appropriate if not resolved after the resolution of his pneumonia. DISCHARGE MEDICATIONS: Please see below. ALLERGIES: Please see below. PHYSICAL EXAMINATION ON DISCHARGE: VITAL SIGNS: Please see below. GENERAL: Alert, comfortable, in no acute distress HEENT: Normocephalic, atraumatic, moist mucous membranes NECK: Supple, trachea midline CARDIOVASCULAR: Regular rate and rhythm, normal S1 and S2. RESPIRATORY: Clear to auscultation bilaterally with equal air entry bilaterally. No wheezing, rhonchi, or rales. ABDOMEN: Soft, nontender, nondistended, bowel sounds present. EXTREMITIES: No edema. No calf tenderness. PSYCHIATRIC: Mood and affect appropriate LABORATORY DATA: Please see below. IMAGING: CXR Bibasilar airspace opacities, without significant change compared to the prior chest x-ray on 01/26/2021, which may represent pneumonia or atelectasis. Hip XR Status post ORIF, intertrochanteric fracture right femur. Mild arthritis of the right hip. Other findings as noted. CXR Chronic fibrotic changes are suspected with bibasilar predominance. Correlate clinically to rule out the possibility of acute disease superimposed upon chronic change. Consider PA view of the chest. PROGNOSIS: Fair ACTIVITY: Julius lift at baseline, no change in activity orders from [facility] DIET: Level 2 soft mechanical diet with thin liquids DISCHARGE PLAN: Return to [facility] shelter DISCHARGE INSTRUCTIONS: Complete full course of antibiotics. Follow-up with PCP in 7 to 10 days. Follow-up CBC after resolution of pneumonia to evaluate for leukocytosis and thrombocytosis. May need further work-up if persistent DISCHARGE CONDITION: Stable. TIME SPENT ON DISCHARGE: 35 minutes. Vital Signs/I&Os Vital Signs Date Time Temp Pulse Resp B/P (MAP) Pulse Ox O2 Delivery O2 Flow Rate FiO2 02/03/21 11:40 140/60 (86) 02/03/21 08:33 99 02/03/21 08:29 97.4 18 92 Room Air 02/02/21 16:00 2.0 I&O- Last 24 Hours up to 6 AM 02/03/21 06:00 Intake Total 1860 ml Output Total 1125 ml Balance 735 ml Laboratory Data Labs 24H Laboratory Tests 2 02/03/21 03:41: Immature Granulocyte % (Auto) 2.0, Neutrophils (%) (Auto) 86.6H, Lymphocytes (%) (Auto) 7.0L, Monocytes (%) (Auto) 4.3, Eosinophils (%) (Auto) 0.0, Basophils (%) (Auto) 0.1, Neutrophils # (Auto) 17.5H, Lymphocytes # (Auto) 1.4L, Monocytes # (Auto) 0.9H, Eosinophils # (Auto) 0.0, Basophils # (Auto) 0.0, Nucleated Red Blood Cells % (auto) 0.3H, Anion Gap 7L, Glomerular Filtration Rate > 60.0, Calcium Level 8.8, C-Reactive Protein, Quantitative 3.62H 02/03/21 09:30: Coronavirus (COVID-19)(PCR) NEGATIVE CBC/BMP Laboratory Tests 02/03/21 03:41 Microbiology Microbiology 02/01/21 Gram Stain - Final, Complete 02/01/21 Sputum Culture - Final, Complete 02/01/21 Urine Culture - Final, Complete 02/01/21 Blood Culture - Preliminary, Resulted No Growth after 48 hours. All Specime... Discharge Medications Scheduled Acetaminophen (Acetaminophen) 500 Mg Tablet, 1,000 MG PO TID, (Reported) Albuterol Sulf (Albuterol Sulfate) 2.5 Mg/3 Ml Vial.neb, 2.5 MG INH Q6HP, (Reported) Apixaban (Eliquis) 5 Mg Tablet, 5 MG PO BID, (Reported) Bisacodyl (Dulcolax) 5 Mg Tablet.dr, 10 MG PO DAILYPRN, (Reported) Docusate Sodium (Stool Softener) 100 Mg Capsule, 100 MG PO DAILY, (Reported) Guaifenesin/Dextromethorphan (Adult Wal-Tussin Dm Syrup) 118 Ml Syrup, 20 ML PO TID, (Reported) Magnesium Hydroxide (Milk of Magnesia) 400 Mg/5 Ml Oral.susp, 2,400 MG PO DAILYPRN, (Reported) Metoprolol Tartrate (Metoprolol Tartrate) 50 Mg Tablet, 50 MG PO BID, (Reported) Moxifloxacin HCl (Moxifloxacin HCl) 400 Mg Tablet, 400 MG PO DAILY@06 Olanzapine (Olanzapine) 5 Mg Tablet, 5 MG PO DAILY, (Reported) Scheduled PRN Albuterol Sulfate (Ventolin Hfa) 18 Gm Hfa.aer.ad, 4 PUFFS INH QID PRN for DYSPNEA, (Reported) Meclizine HCl (Meclizine HCl) 12.5 Mg Tablet, 12.5 MG PO BIDP PRN for VERTIGO/DIZZINESS, (Reported) Miscellaneous Medications Sodium Phosphate,[place]-Dibasic (Enema) 133 Ml Enema, 1 ELODIA MI, (Reported) Allergies Coded Allergies: No Known Drug Allergies (Verified Allergy, Unknown, 01/31/21) GME ATTESTATION My faculty preceptor for this patient encounter was physically present during the encounter and was fully available. All aspects of the patient interview, examination, medical decision making process, and medical care plan development were reviewed and approved by the faculty preceptor. The faculty preceptor is aware and concurs with the plan as stated in the body of this note and will attest to such by his/her cosignature. ATTENDING NOTE personally examined the patient and discussed the lab and imaging findings with the resident and I agree with the above findings, summary and plan as detailed by the resident physician. JOSE SHABAZZ D.O. Feb 03, 2021 15:43 PAUL ESCOBEDO MD Feb 04, 2021 07:35
[2021-02-04] MEDS ORDERED: LEVA1.25 INH (17:46)
[2021-02-04] MEDS ORDERED: FEVE650S3 PR (17:46)
[2021-02-04] MEDS ORDERED: LEVA0.6322 INH (17:46)
[2021-02-04] MEDS ORDERED: SENN-23 PO (17:46)
[2021-02-04] MEDS ORDERED: MOXI1TAB PO (17:46)
[2021-02-04] MEDS ORDERED: ACET1TAB55 PO (17:46)
[2021-02-04] MEDS ORDERED: MILKSUS3 PO (17:46)
[2021-02-04] MEDS ORDERED: PRED10TA2 PO (17:46)
[2021-02-04] MEDS ORDERED: BACITAB PO (17:46)
[2021-02-04] MEDS ORDERED: DULC10SU2 PR (17:46)
== END 2021-02-03 12:08 | disposition home or self-care (01) | DRG 178 ==
LOC: M ED 20:24 → M ED INP 20:25 → EDBEDREQ 23:18 → EDBEDREQSVC 23:18 → ENRESERVDT 02-01 02:22 → ENRESERVTM 02-01 02:22 → M PCU 02-01 03:18
PROVIDERS: ADMIT Family Medicine; ATTEND Internal Medicine
DX: J69.0 Pneumonitis due to inhalation of food and vomit (principal); J44.1 Chronic obstructive pulmonary disease with (acute) exacerbation; I48.20 Chronic atrial fibrillation, unspecified; D72.829 Elevated white blood cell count, unspecified; F03.90 Unspecified dementia, unspecified severity, without behavioral disturbance, psychotic disturbance, mood disturbance, and anxiety; C61 Malignant neoplasm of prostate; M19.90 Unspecified osteoarthritis, unspecified site; I10 Essential (primary) hypertension; Z79.899 Other long term (current) drug therapy; E87.5 Hyperkalemia

== ENCOUNTER → 2021-02-02 | Outpatient (REF) | payer MEDICARE, MEDICAID ==
[~2021-02-02] MED LIST changes: +ACET-683 PEG; +ACET1TAB55 PO; +BACITAB PEG; +BACITAB PO; +DULC10SU2 PR; +ELIQ5TAB PEG; +ENSU1LIQ36 PO; +ESOM1CAP5 PO; +FEVE650S3 PR; +GNPLIQ18 PO; +IPRA0.00 NEB; +LEVA0.6322 INH; +LEVA0.636 INH; +LEVA1.25 INH; +METO1TAB87 PEG; +METO1TAB87 PO; +MILKSUS3 PEG; +MILKSUS3 PO; +MOM30SS PO; +MOXI1TAB PO; +MOXI400T11 PO; +OLAN1TAB16 PEG; +PRED10TA2 PO; +SENN-23 PEG; +SENN-23 PO; +SENN1TAB41 PO; +[UNRECOGNIZED DRUG - CODE] PEG
== END ==
PROVIDERS: ATTEND Internal Medicine
DX: Z53.8 Procedure and treatment not carried out for other reasons (principal)

== ENCOUNTER 2021-02-04 15:25 | Inpatient (IN) | payer MEDICARE, MEDICAID ==
[~2021-02-04] VITALS: Ht 167.6 cm; Wt 71.6 kg
[~2021-02-04 15:25] MED LIST changes: -ACET1TAB55 PO; -BACITAB PO; -DULC10SU2 PR; -FEVE650S3 PR; -LEVA0.6322 INH; -LEVA1.25 INH; -MILKSUS3 PO; -MOXI1TAB PO; -PRED10TA2 PO; -SENN-23 PO
[2021-02-04] MEDS ORDERED: ALBUTEROL SULFATE 2.5 MG/0.5 ML INH NEB SOLN INH ONE (15:40)
[2021-02-04] MEDS ORDERED: methylPREDNISolone 40MG 1ML VIAL IV ONE (15:40)
[2021-02-04] MEDS ORDERED: IPRATROPIUM 0.5MG/ALBUTEROL 2.5MG INH SOL UD 3ML (DUONEB) NEB ONE (15:40)
[2021-02-04 16:11] LABS: ABG BASE EXCESS -0.4 (-2.0-2.0); ABG HCO3 25.4 MEQ/L (22.0-26.0); ABG O2 SATURATION 96.6 % (95.0-99.0); ABG PARTIAL PRESSURE O2 83.6 mmHg (75.0-100.0); ABG STANDARD HCO3 24.2 MEQ/L (22.0-26.0); ABG TOTAL CO2 26.8 MEQ/L (23.0-31.0)
[2021-02-04 16:27] LABS: BASO # 0.1 10^3/uL (0.0-0.2); BASO % 0.2 % (0.0-1.0); HEMATOCRIT 43.1 % (42.0-52.0); HEMOGLOBIN 12.9 g/dl (13.5-17.5); LYMPH # 1.4 10^3/uL (1.5-5.0); LYMPH % 6.8 % (24.0-44.0); MEAN CORPUSCULAR HEMOGLOBIN 30.9 pg (27.0-33.0); MEAN CORPUSCULAR HGB CONC 29.9 g/dl (32.0-36.5); MEAN CORPUSCULAR VOLUME 103.1 fl (80.0-96.0); MONO # 0.9 10^3/uL (0.0-0.8); MONO % 4.7 % (2.0-8.0); NEUTROPHILS # 17.5 10^3/uL (1.5-8.5); NEUTROPHILS % 86.6 % (36.0-66.0); PLATELET COUNT, AUTOMATED 835 10^3/uL (150-450); RED BLOOD COUNT 4.18 10^6/uL (4.30-6.10); WHITE BLOOD COUNT 20.2 10^3/uL (4.0-10.0)
--- NOTE | 2021-02-04 16:28 | REP ---
INDICATION: DYSPNEA/COUGH. COMPARISON: PA and lateral chest dated 01/26/2021. Portable chest dated 01/31/2021. PA and lateral chest dated 02/02/2021. TECHNIQUE: Portable AP chest with the patient semi upright. FINDINGS: There is diffuse mild interstitial coarsening appears slightly increased from the portable AP chest of 01/31/2021. There are no focal infiltrates. There are no pleural effusions. There are no lung masses or nodules. Cardiac size is normal. The candy, mediastinum, and skeletal structures are unremarkable. IMPRESSION: Diffuse mild interstitial coarsening as described. <Electronically signed by Carson Dixon > 02/04/21 [id number]
[2021-02-04 16:59] LABS: ALBUMIN 3.6 GM/DL (3.2-5.2); ALT/SGPT 33 U/L (12-78); BILIRUBIN,DIRECT < 0.1 MG/DL (0.0-0.2); BILIRUBIN,TOTAL 0.3 MG/DL (0.2-1.0); BLOOD UREA NITROGEN 33 MG/DL (7-18); CALCIUM LEVEL 9.3 MG/DL (8.8-10.2); CARBON DIOXIDE LEVEL 30 MEQ/L (21-32); CHLORIDE LEVEL 104 MEQ/L (98-107); CK-MB VALUE MASS < 1.0 NG/ML (<3.6); CPK CREATINE PHOSPHOKINASE 80 U/L (39-308); CREATININE FOR GFR 1.03 MG/DL (0.70-1.30); GLOMERULAR FILTRATION RATE > 60.0 (>35); GLUCOSE, FASTING 158 MG/DL (70-100); MB/CK RELATIVE INDEX 1.25 (< OR =4); NT-PRO BNP 1436 PG/ML (<450); POTASSIUM SERUM 5.6 MEQ/L (3.5-5.1); SODIUM LEVEL 138 MEQ/L (136-145); THYROID STIMULATING HORMONE 0.823 uIU/ML (0.358-3.740); THYROXINE (T4) 9.9 UG/DL (4.5-12.0); TROPONIN I < 0.02 NG/ML (< 0.10)
[2021-02-04] MEDS ORDERED: LEVALBUTEROL 1.25 MG/0.5 ML CONCENTRATE NEB INH PRN (17:30)
[2021-02-04] MEDS ORDERED: METOPROLOL TART 50 MG TAB PO ONE (17:35)
[2021-02-04] MEDS ORDERED: BACITAB PO (17:46)
[2021-02-04] MEDS ORDERED: SENN-23 PO (17:46)
[2021-02-04] MEDS ORDERED: LEVA0.6322 INH (17:46)
[2021-02-04] MEDS ORDERED: FEVE650S3 PR (17:46)
[2021-02-04] MEDS ORDERED: DULC10SU2 PR (17:46)
[2021-02-04] MEDS ORDERED: LEVA1.25 INH (17:46)
[2021-02-04] MEDS ORDERED: ACET1TAB55 PO (17:46)
[2021-02-04] MEDS ORDERED: MOXI1TAB PO (17:46)
[2021-02-04] MEDS ORDERED: PRED10TA2 PO (17:46)
[2021-02-04] MEDS ORDERED: MILKSUS3 PO (17:46)
[2021-02-04] MEDS ORDERED: HOME MED LIST COMPLETE! XX SCH (17:50)
[2021-02-04] MEDS ORDERED: CALCIUM GLUCONATE 1,000 MG in D5W MINI-BAG PLUS 100 ML IV ONE (19:05)
[2021-02-04] MEDS ORDERED: SOD POLYSTYRENE SULFONATE SUSP 15 GM/60 ML UD PO ONE (19:05)
--- NOTE | 2021-02-04 19:10 | HPEPDOC ---
[facility] Medical History & Physical Date of Admission Feb 04, 2021 Date of Service: Feb 04, 2021 History and Physical History and Physical Exam dictated job #[id number] A/P: 80 M [facility] resident CPR, Trial of Intubation w h/o prostate CA, rooney, HTN, chronic Afib on Eliquis, Aspiration pneumonia 01/31/21-02/03/21, COPD, h/o CVA, Dementia, 2L o2 chronic hypoxic respiratory failure c/o cough productive of white sputum, sob, congestion w/o chills, found to be septic with recurrent aspiration wbc 24, hr 107 rr 24 with recurrent hyperkalemia. Recurrent Aspiration pneumonia Hyperkalemia Chronic Afib, currently sinus h/o CVA HTN COPD chronic hypoxic respiratory failure on 2-3liters home oxygen Prostate Ca w chronic catheter Dementia -ampicillin-sulbactam iv q6hrs to be renally dosed x 7 days. -xopenex q4h, q1hr prn -titrate o2 to keep o2sat>90% -blood cx x 2, sputum cx -mrsa screen -speech eval in am -son, hcp, gave consent for feeding tube if needed. -hold eliquis if feeding tube needed. Vital Signs Vital Signs Date Time Temp Pulse Resp B/P (MAP) Pulse Ox O2 Delivery O2 Flow Rate FiO2 02/04/21 18:00 101 132/72 (92) 95 02/04/21 16:30 99.5 24 Laboratory Data Labs 24H Laboratory Tests 2 02/04/21 15:48: Immature Granulocyte % (Auto) 1.7, Neutrophils (%) (Auto) 86.6H, Lymphocytes (%) (Auto) 6.8L, Monocytes (%) (Auto) 4.7, Eosinophils (%) (Auto) 0.0, Basophils (%) (Auto) 0.2, Neutrophils # (Auto) 17.5H, Lymphocytes # (Auto) 1.4L, Monocytes # (Auto) 0.9H, Eosinophils # (Auto) 0.0, Basophils # (Auto) 0.1, Nucleated Red Blood Cells % (auto) 0.5H, Anion Gap 4L, Glomerular Filtration Rate > 60.0, Lactic Acid Level 2.3*H, Calcium Level 9.3, Total Bilirubin 0.3, Direct Bilirubin < 0.1, Aspartate Amino Transf (AST/SGOT) 39H, Alanine Aminotransferase (ALT/SGPT) 33, Alkaline Phosphatase 107, Total Creatine Kinase 80, Creatine Kinase MB < 1.0, Creatine Kinase MB Relative Index 1.25, Troponin I < 0.02, NT-P ro-B-Type Natriuretic Peptide 1436H, Total Protein 9.0H, Albumin 3.6, Albumin/Globulin Ratio 0.7, Thyroid Stimulating Hormone (TSH) 0.823, Thyroxine (T4) 9.9 02/04/21 15:57: Blood Gas Bicarbonate Standard 24.2, Arterial Blood pH 7.360, Arterial Blood Partial Pressure CO2 46.0H, Arterial Blood Partial Pressure O2 83.6, Arterial Blood Total CO2 26.8, Arterial Blood HCO3 25.4, Arterial Blood Base Excess -0.4, Arterial Blood Oxygen Saturation 96.6 CBC/BMP Laboratory Tests 02/04/21 15:48 Microbiology Microbiology 02/04/21 Blood Culture, Received Pending 02/04/21 Blood Culture, Received Pending 02/04/21 Respiratory Virus Panel (PCR) (KESHAWN) - Final, Complete Home Medications Scheduled Acetaminophen (Acetaminophen) 500 Mg Tablet, 500 MG PO TID Apixaban (Eliquis) 5 Mg Tablet, 5 MG PO BID Guaifenesin/Dextromethorphan (Adult Wal-Tussin Dm Syrup) 118 Ml Syrup, 20 ML PO TID L.acidoph/L.bulg/B.bif/S.therm (Bacid Caplet) 1 Each Tablet, 1 TAB PO DAILY Levalbuterol HCl (Levalbuterol HCl) 0.63 Mg/3 Ml Vial.neb, 0.63 MG INH QID 0000, 0600, 1200, 1800 Metoprolol Tartrate (Metoprolol Tartrate) 50 Mg Tablet, 50 MG PO BID Moxifloxacin HCl (Moxifloxacin HCl) 400 Mg Tablet, 400 MG PO DAILY STARTED 02/04/21 FOR 5 DAYS Olanzapine (Olanzapine) 5 Mg Tablet, 5 MG PO DAILY Prednisone (Prednisone) 10 Mg Tablet, 40 MG PO DAILY TAPER DOSE - STARTING 02/04/21, 40MG DAILY FOR 5 DAYS, 30MG DAILY FOR 5 DAYS, 20MG DAILY FOR 5 DAYS, 10MG DAILY FOR 5 DAYS, 5 MG DAILY FOR 5 DAYS, THEN STOP Sennosides/Docusate Sodium (Senna-S Tablet) 1 Each Tablet, 1 TAB PO DAILY Scheduled PRN Acetaminophen (Acetaminophen) 325 Mg Tablet, 650 MG PO Q4H PRN for MILD PAIN (PS 1-4) Acetaminophen (Feverall) 650 Mg Supp.rect, 650 MG MA Q4H PRN for FEVER Bisacodyl (Dulcolax) 10 Mg Supp.rect, 10 MG MA DAILY PRN for CONSTIPATION Levalbuterol HCl (Levalbuterol Concentrate) 1.25 Mg/0.5 Ml Vial.neb, 1.25 MG INH Q2H PRN for SHORTNESS OF BREATH Magnesium Hydroxide (Milk of Magnesia) 400 Mg/5 Ml Oral.susp, 30 ML PO DAILY PRN for CONSTIPATION Sodium Phosphate,[place]-Dibasic (Enema) 133 Ml Enema, 1 ELODIA MA DAILY PRN for CONSTIPATION Allergies Coded Allergies: No Known Drug Allergies (Verified Allergy, Unknown, 01/31/21) A-FIB/CHADSVASC A-FIB History Current/History of A-Fib/PAF?: Yes Current PO Anticoag Therapy: Yes Age/Risk Factor Scoring CHADSVASC: CHADSVASC Response (Comments) Value Age Risk Factor Age >/= 75 years old 2 Gender Risk Factor Male 0 Hx of CHF No 0 Hx of HTN Yes 1 Hx of Stroke/TIA/or VTE Yes 2 Hx of Diabetes No 0 Hx of Vascular Disease Yes 1 Total 6 Treatment Treatment ordered: NONE Reason Anticoagulant not given: Recent/upcomin procedure JEROME APODACA MD Feb 04, 2021 19:10
[2021-02-04] MEDS: LEVALBUTEROL 1.25 MG/0.5 ML CONCENTRATE NEB INH SCH (19:15)
[2021-02-04] MEDS ORDERED: NS 1,000 ML IV ONE (19:15)
--- NOTE | 2021-02-04 19:19 | ECGEPIP ---
[facility] - ED Test Date: 2021-02-04 Pat Name: MATTEO CHACON Department: Room: - Gender: Male Home Appliance Technician: ISMAEL : 1940 Requested By: Leti Templeton Order Number: [id number] Reading MD: Leti Templeton Measurements Intervals [place] Rate: 95 P: 48 CA: 186 QRS: -38 QRSD: 90 T: 66 QT: 366 QTc: 459 Interpretive Statements Normal sinus rhythm with sinus arrhythmia Left axis deviation left anterior fasciular block Left ventricular hypertrophy with repolarization abnormality ( R in aVL , Loman product , Romhilt-Lane ) septal infarct age undetermined Nonspecific ST T wave changes cw 01/31/21 rate similar Electronically Signed on 02-04-2021 19:18:39 EDT by Leti Templeton
--- NOTE | 2021-02-04 19:42 | REPVR ---
PROCEDURE INFORMATION: Exam: CT Head Without Contrast Exam date and time: 02/04/2021 7:36 PM Age: 80 years old Clinical indication: Pain; Other: Afib recurrent aspiration R/O CVA TECHNIQUE: Imaging protocol: Computed tomography of the head without contrast. Radiation optimization: All CT scans at this facility use at least one of these dose optimization techniques: automated exposure control; mA and/or kV adjustment per patient size (includes targeted exams where dose is matched to clinical indication); or iterative reconstruction. Other technique: STROKE PROTOCOL was implemented. COMPARISON: No relevant prior studies available. FINDINGS: Brain: No intracranial mass, focal mass effect or midline shift. No acute intracranial hemorrhage. Mild decreased attenuation in periventricular/centrum semiovale white matter. No focal effacement of cortical sulci to indicate acute cortical infarct. Prominent ventricles and CSF spaces suggest parenchymal volume loss. Paranasal sinuses: Visualized paranasal sinuses are unremarkable. Mastoid air cells: Mastoid air cells are normally aerated. Orbital cavity: Visualized globes and orbits are unremarkable. Bones/joints: No calvarial fracture or destructive process. Soft tissues: No focal extracranial soft tissue swelling. IMPRESSION: 1. No acute intracranial abnormality. 2. Mild and chronic microangiopathic change in supratentorial white matter. ASSESSMENT: ASPECTS ([place] Stroke Program Early CT Score) is 10. Electronically signed by: Ranjeet Godwin On 02/04/2021 19:42:09 PM
--- NOTE | 2021-02-04 20:21 | HPE ---
HISTORY AND PHYSICAL DATE OF ADMISSION: 02/04/2021 CHIEF COMPLAINT: cough congestion sob HISTORY OF PRESENT ILLNESS: Recently admitted to [facility] February from February 01, 2021 to February 03, 2021 for aspiration pneumonia, treated with intravenous vancomycin and Zosyn, IV steroids for chronic obstructive pulmonary disease (COPD) exacerbation and was evaluated by speech therapy, who recommended level 2 soft mechanical diet with thin liquids. Patient was transitioned to oral Avalox and was discharged back to the senior living at [facility] on February 03, 2021 and steroids were discontinued. Patient returns again today with worsening cough, respiratory distress and was found to have white count of 24.2 down in the emergency room for readmission and evaluation for feeding tube placement. Patient denied any nausea or vomiting. Denies any chills. He has no diarrhea. Son at the bedside provided consent for a feeding tube placement as well as cardiopulmonary resuscitation (CPR), trial of intubation. Medical orders for life-sustaining treatment (MOLST) form signed. Patient had lactic acidosis, 2.3, potassium of 5.6 and sepsis secondary to pneumonia with heart rate of 107, white count of 24,000. Hospitalist was asked to admit the patient secondary to recurrent aspiration pneumonia and evaluation of feeding tube, as well as hyperkalemia. PAST MEDICAL HISTORY: 1. Aspiration pneumonia. 2. Coronavirus positive in September 2020. 3. Atrial fibrillation. 4. Osteoarthritis. 5. Prostate cancer with chronic indwelling Mcdonald catheter. 6. Hypertension. 7. Dementia. 8. Prior smoker. 9. Cerebrovascular accident (CVA). 10. Hyperlipidemia. PAST SURGICAL HISTORY: 1. Right and left hip surgery. 2. "Pancreas removal." HOME MEDICATIONS: - moxifloxacin 400 mg daily - metoprolol 50 mg twice a day - acetaminophen 1 gram three times a day - albuterol 2.5 inhaled every 6 hours as needed - Eliquis 5 mg twice a day - Dulcolax 10 mg as needed - Colace 100 mg daily - guaifenesin/dextromethorphan 20 mL by mouth three times a day - Milk of Magnesia 2400 mg by mouth daily as needed - olanzapine 5 mg daily - meclizine 12.5 mg for vertigo - Fleet enema per rectum as needed for constipation ALLERGIES: No known drug allergies. SOCIAL HISTORY: Former smoker, recently at [facility]. Healthcare proxy is his son, Jacky. CODE STATUS: Trial of intubation and CPR. REVIEW OF SYSTEMS: A 10 point review of systems is negative except for positive findings in history of present illness (HPI). PHYSICAL EXAMINATION: VITAL SIGNS: Temperature 99.5, pulse sinus tachycardia, ventricular rate of 107, respiratory rate 24, blood pressure 132/72, 95% on 2 liters nasal cannula. GENERAL: Patient is demented, awake, alert, oriented to himself, confused, answers questions appropriately. He does have a seven to eight word conversational dyspnea and use of respiratory accessory muscles without tripod positioning, pallor and cyanosis. HEENT: Anicteric. No jaundice. No jugular venous distention (JVD), thyromegaly or cervical adenopathy. Moist mucous membranes. LUNGS: Coarse rhonchi bilaterally with faint expiratory wheezing. HEART: S1, S2. Sinus tachycardia. No carotid bruit. ABDOMEN: Distended. Normoactive bowel sounds. No rebound or guarding. EXTREMITIES: No cyanosis or clubbing. LABORATORY DATA: White count 24.2, hemoglobin 12.9, hematocrit 43, platelet count 835. Sodium 138, potassium 5.6, chloride 104, bicarbonate 30, BUN 33, creatinine 1.03, glucose 158. BNP 1436. Lactic acid 2.3. Calcium 9.3. Total bilirubin 0.3, AST 39, ALT 33, alkaline phosphatase 107. Total CK 80, MB fraction less than 1. Troponin less than 0.02. TSH 0.823. IMAGING STUDIES: Chest x-ray 02/04/2021: Diffuse interstitial coarsening, increased from prior portable AP chest of 01/31/2021. No focal infiltrates. No lung masses or nodules. ASSESSMENT: This is an 80-year-old male, [facility] resident, medical orders for life-sustaining treatment (MOLST) form stating CPR with trial of intubation, with history of atrial fibrillation, currently sinus rhythm, osteoarthritis, prostate cancer with chronic indwelling Mcdonald catheter, hypertension, hyperlipidemia and dementia, with questionable "pancreas removed" admitted January 31, 2021 to February 03, 2021 for aspiration pneumonia and acute respiratory failure treated with IV Zosyn and vancomycin and transitioned to Avalox as outpatient and discharged back to [facility], presents again today with worsening respiratory distress and shortness of breath, found to have worsening on the chest-ray, admitted for recurrent aspiration. CURRENT ISSUES: 1. Recurrent aspiration pneumonia. Patient will be started on Unasyn, renally dosed. Check sputum and blood cultures. If methicillin-resistant Staphylococcus aureus (MRSA) is negative, no need to cover for MRSA. Continue with Xopenex. Since the patient is tachycardic, will discontinue his home albuterol. If pt fails swallow evaluation and needs a feeding tube,general surgery will be consulted and lovenox will be held 12hrs prior to feeding tube placement. 2. History of chronic atrial fibrillation. Currently in sinus rhythm on EKG. He may be resumed on his home metoprolol 50 mg twice a day with holding parameters with systolic pressure less than 120 and heart rate less then 60. He has been compliant with his Eliquis, which we will be held due to possible need for a feeding tube. Due to history of CVA and afib, he will be put on lovenox 1mg/kg sq q12hrs renally dosed. If pt fails swallow evaluation and needs a feeding tube,general surgery will be consulted and lovenox will be held 12hrs prior to feeding tube placement. 3. History of prostate cancer with chronic indwelling Mcdonald catheter. Chronic. 4. History of chronic obstructive pulmonary disease (COPD). Currently not in exacerbation. Patient may be continued on his Xopenex nebulizer every 4 hours and every hour as needed. 5. Hyperkalemia. Patient is to be given Kayexalate, calcium gluconate and telemetry monitoring for hyperkalemia. EKG had no peak T-waves or sine wave changes. 6. Hyperlipidemia. Chronic. 7. Hypertension. Stable. Resume on metoprolol. Currently controlled. 8. History of CVA in the setting of chronic Afib usually on eliquis which will be held due to possible need for feeding tube. 9. Chronic hypoxic respiratory failure on 2-3liters home oxygen. titrate to o2sat 92% 10. Chronic Dementia HCP is the patient's son. Pt is medically incompetent to make medical decisions. HCP consented to feeding tube if needed. 11. Dyslipidemia 12. Elevated BNP multi-factorial due to underlying COPD, possible pulmonary htn, possible cor pulmonale. check 2D echo. monitor fluid balance. strict i/o. weigh daily. 13. Lactic acidosis ivfluid trial until lactic acidosis resolves, iv antibiotics. CODE STATUS: Trial of intubation. Medical orders for life-sustaining treatment (MOLST) form signed. Patient's son is the healthcare proxy. Diet. Nothing by mouth. Swallow evaluation in the morning. Family gave consent for feeding tube placement if needed. Deep venous thrombosis (DVT) prophylaxis. on lovenox sq. MTDD
[2021-02-04 21:00] VITALS: BP 122/76
[2021-02-04] MEDS ORDERED: APIXABAN 5 MG TAB (ELIQUIS) PO SCH (21:00)
[2021-02-04] MEDS ORDERED: ENOXAPARIN 80MG/0.8ML SYRINGE (J1650 PER 10MG) SC SCH (21:00)
[2021-02-04 23:47] LABS: BLOOD UREA NITROGEN 31 MG/DL (7-18); CALCIUM LEVEL 8.9 MG/DL (8.8-10.2); CARBON DIOXIDE LEVEL 29 MEQ/L (21-32); CHLORIDE LEVEL 108 MEQ/L (98-107); CREATININE FOR GFR 0.97 MG/DL (0.70-1.30); GLOMERULAR FILTRATION RATE > 60.0 (>35); GLUCOSE, FASTING 189 MG/DL (70-100); POTASSIUM SERUM 5.4 MEQ/L (3.5-5.1); SODIUM LEVEL 143 MEQ/L (136-145)
[2021-02-05] VITALS (7 sets, daily range): BP systolic 130–167; BP diastolic 63–90; O2SAT 95
[2021-02-05] MEDS ORDERED: UNRESOLVED CLARIFICATION ENTRY XX SCH (00:01)
[2021-02-05] MEDS ORDERED: METOPROLOL 5 MG/5 ML VIAL IV SCH (01:00)
[2021-02-05] MEDS: NS 1,000 ML IV SCH ×3 (01:05→21:47)
[2021-02-05] MEDS: AMPICILLIN SOD/SULBACTAM SOD 3 GM in D5W MINI-BAG PLUS 100 ML IV SCH ×4 (01:05→18:16)
[2021-02-05] MEDS: LEVALBUTEROL 1.25 MG/0.5 ML CONCENTRATE NEB INH SCH ×5 (04:00→15:49)
[2021-02-05 04:22] LABS: BASO % 0.1 % (0.0-1.0); HEMATOCRIT 36.3 % (42.0-52.0); LYMPH # 1.2 10^3/uL (1.5-5.0); LYMPH % 7.6 % (24.0-44.0); MEAN CORPUSCULAR HEMOGLOBIN 30.5 pg (27.0-33.0); MEAN CORPUSCULAR VOLUME 101.7 fl (80.0-96.0); MONO # 0.3 10^3/uL (0.0-0.8); NEUTROPHILS % 89.3 % (36.0-66.0); RED BLOOD COUNT 3.57 10^6/uL (4.30-6.10); WHITE BLOOD COUNT 15.7 10^3/uL (4.0-10.0)
[2021-02-05 04:29] LABS: HEMOGLOBIN 10.9 g/dl (13.5-17.5); PLATELET COUNT, AUTOMATED 701 10^3/uL (150-450)
[2021-02-05 04:33] LABS: INR 1.19; PROTHROMBIN TIME 15.5 SECONDS (12.7-14.5)
[2021-02-05 04:34] LABS: PARTIAL THROMBOPLASTIN TIME 34.9 SECONDS (25.9-37.0)
[2021-02-05 04:47] LABS: BLOOD UREA NITROGEN 30 MG/DL (7-18); CALCIUM LEVEL 8.7 MG/DL (8.8-10.2); CARBON DIOXIDE LEVEL 30 MEQ/L (21-32); CHLORIDE LEVEL 109 MEQ/L (98-107); CREATININE FOR GFR 0.81 MG/DL (0.70-1.30); GLOMERULAR FILTRATION RATE > 60.0 (>35); GLUCOSE, FASTING 154 MG/DL (70-100); POTASSIUM SERUM 5.3 MEQ/L (3.5-5.1); SODIUM LEVEL 143 MEQ/L (136-145)
[2021-02-05] MEDS: SOD POLYSTYRENE SULFONATE SUSP 15 GM/60 ML UD PO SCH ×2 (08:00→09:00)
[2021-02-05] MEDS ORDERED: CALCIUM GLUCONATE 1,000 MG in D5W MINI-BAG PLUS 100 ML IV ONE (08:00)
[2021-02-05] MEDS ORDERED: ENOXAPARIN 40MG/0.4ML SYRINGE (J1650 PER 10MG) SC SCH (09:00)
[2021-02-05] MEDS ORDERED: METOPROLOL TART 50 MG TAB PO SCH ×2 (09:00)
[2021-02-05] MEDS ORDERED: E-Z-PAQUE 96% w/w SUSP 176GM BTL As Ordered ONE (11:24)
[2021-02-05] MEDS ORDERED: VARIBAR PUDDING 40% w/v 230ML TUBE As Ordered ONE (11:24)
[2021-02-05] MEDS ORDERED: VARIBAR NECTAR 40% w/v 240ML SUSP BTL As Ordered ONE (11:24)
[2021-02-05] MEDS ORDERED: BARIUM SULFATE 700 MG TABLET (E-Z-DISK) As Ordered ONE (11:25)
--- NOTE | 2021-02-05 11:45 | IPNPDOC ---
Date Seen The patient was seen on 02/05/21. Progress Note SUBJECTIVE: Afebrile no chills overnight continues to have some shortness of breath but the same as yesterday no nausea vomiting abdominal pain No new complaints OBJECTIVE: PHYSICAL EXAM: VITAL SIGNS: See below GENERAL: Asleep but arousable awake alert oriented to himself pleasantly confused, but answers appropriately No distress or use of respiratory accessory muscles HEENT: No pallor no jaundice anicteric. No jaundice. No jugular venous distention (JVD), thyromegaly or cervical adenopathy. Dry mucous membranes. LUNGS: Diminished breath sounds coarse rhonchi bilaterally with faint expiratory wheezing. HEART: S1, S2. Sinus No carotid bruit. No JVD ABDOMEN: Distended. Normoactive bowel sounds. No rebound or guarding. EXTREMITIES: No cyanosis or clubbing. LABORATORY DATA: See below MICROBIOLOGY: SEE BELOW IMAGING STUDIES: Chest x-ray 02/04/2021: Diffuse interstitial coarsening, increased from prior portable AP chest of 01/31/2021. No focal infiltrates. No lung masses or nodules. ASSESSMENT: This is an 80-year-old male, [facility] resident, medical orders for life-sustaining treatment (MOLST) form stating CPR with trial of intubation, with history of atrial fibrillation, currently sinus rhythm, osteoarthritis, prostate cancer with chronic indwelling Mcdonald catheter, hypertension, hyperlipidemia and dementia, with questionable "pancreas removed" admitted January 31, 2021 to February 03, 2021 for aspiration pneumonia and acute respiratory failure treated with IV Zosyn and vancomycin and transitioned to Avalox as outpatient and discharged back to [facility], presents again today with worsening respiratory distress and shortness of breath, found to have worsening on the chest-ray, admitted for recurrent aspiration. Recurrent aspiration pneumonia. On IV Unasyn with decreasing white blood cell count r emains afebrile with no complaints of chills he is currently n.p.o. due to recurrent aspiration swallow evaluation recommended continued n.p.o. status p.o. meds have been discontinued general surgery Dr. Saba has been consulted patient's son has provided consent for feeding tube placement anticoagulation has been discontinued he is off Eliquis for chronic A. fib due to plans for feeding tube placement 48 hours after the last dose of Eliquis which was on 02/04/2021 at 9:45 AM, patient should be eligible for any invasive procedure he is continued on IV fluids for nutrition hypoglycemic protocol to prevent hypoglycemia. Aspiration precautions Dysphagia In the setting of prior CVA and chronic A. fib Recurrent aspiration requiring feeding tube placement Currently n.p.o. on IV fluids General surgery Dr. Saba consulted for feeding tube placement History of chronic atrial fibrillation. Currently in sinus rhythm on EKG. he is off Eliquis for chronic A. fib due to plans for feeding tube placement 48 hours after the last dose of Eliquis which was on 02/04/2021 at 9:45 AM, patient should be eligible for any invasive procedure Metoprolol p.o. has been discontinued If rate is higher than 120 bpm patient may be started on metoprolol 5 mg IV every 6 hourly If rate is higher than 140 bpm with systolic pressure less than 100 mmHg , patient may be given IV amiodarone 150 mg as a bolus if persistent uncontrolled A. fib with RVR greater than 140 bpm, he may be given IV amiodarone drip History of prostate cancer with chronic indwelling Mcdonald catheter. Chronic. Monitor for UTI History of chronic obstructive pulmonary disease (COPD). on his Xopenex nebulizer every 4 hours and every hour as needed. Compensated Hyperkalemia, resolved Status post Kayexalate, calcium gluconate and Continue telemetry monitoring for hyperkalemia. EKG had no peak T-waves or sine wave changes on admission EKG Hyperlipidemia. Chronic. Hypertension. Stable Since the patient is n.p.o. we may need to give intravenous labetalol for good blood pressure control or nitroglycerin ointment every 4 hourly. History of CVA in the setting of chronic Afib usually on eliquis held due to feeding tube placement Chronic hypoxic respiratory failure on 2-3liters home oxygen. titrate to o2sat 92% Chronic Dementia HCP is the patient's son. Pt is medically incompetent to make medical decisions. HCP consented to feeding tube if needed. Dyslipidemia Elevated BNP multi-factorial due to underlying COPD, possible pulmonary htn, possible cor pulmonale. check 2D echo. monitor fluid balance. strict i/o. weigh daily. Lactic acidosis ivfluid trial until lactic acidosis resolves, iv antibiotics. CODE STATUS: Trial of intubation. Medical orders for life-sustaining treatment (MOLST) form signed. Patient's son is the healthcare proxy. Diet. Nothing by mouth. Feeding tube to be placed by general surgery Deep venous thrombosis (DVT) prophylaxis. on lovenox sq. VS, I&O, 24H, Fishbone Vital Signs/I&O Vital Signs Date Time Temp Pulse Resp B/P (MAP) Pulse Ox O2 Delivery O2 Flow Rate FiO2 02/05/21 08:00 98.0 65 18 130/63 (85) 96 Nasal Cannula 3.0 I&O- Last 24 Hours up to 6 AM 02/05/21 05:59 Intake Total 1110 ml Output Total 800 ml Balance 310 ml Laboratory Data 24H LABS Laboratory Tests 2 02/04/21 15:48: Immature Granulocyte % (Auto) 1.7, Neutrophils (%) (Auto) 86.6H, Lymphocytes (%) (Auto) 6.8L, Monocytes (%) (Auto) 4.7, Eosinophils (%) (Auto) 0.0, Basophils (%) (Auto) 0.2, Neutrophils # (Auto) 17.5H, Lymphocytes # (Auto) 1.4L, Monocytes # (Auto) 0.9H, Eosinophils # (Auto) 0.0, Basophils # (Auto) 0.1, Nucleated Red Blood Cells % (auto) 0.5H, Anion Gap 4L, Glomerular Filtration Rate > 60.0, Lactic Acid Level 2.3*H, Calcium Level 9.3, Total Bilirubin 0.3, Direct Bilirubin < 0.1, Aspartate Amino Transf (AST/SGOT) 39H, Alanine Aminotransferase (ALT/SGPT) 33, Alkaline Phosphatase 107, Total Creatine Kinase 80, Creatine Kinase MB < 1.0, Creatine Kinase MB Relative Index 1.25, Troponin I < 0.02, OU-Kvs-P-Type Natriuretic Peptide 1436H, Total Protein 9.0H, Albumin 3.6, Albumin/Globulin Ratio 0.7, Thyroid Stimulating Hormone (TSH) 0.823, Thyroxine (T4) 9.9 02/04/21 15:57: Blood Gas Bicarbonate Standard 24.2, Arterial Blood pH 7.360, Arterial Blood Partial Pressure CO2 46.0H, Arterial Blood Partial Pressure O2 83.6, Arterial Blood Total CO2 26.8, Arterial Blood HCO3 25.4, Arterial Blood Base Excess -0.4, Arterial Blood Oxygen Saturation 96.6 02/04/21 23:16: Anion Gap 6L, Glomerular Filtration Rate > 60.0, Lactic Acid Level 2.5*H, Calcium Level 8.9 02/05/21 03:55: Immature Granulocyte % (Auto) 1.0, Neutrophils (%) (Auto) 89.3H, Lymphocytes (%) (Auto) 7.6L, Monocytes (%) (Auto) 2.0, Eosinophils (%) (Auto) 0.0, Basophils (%) (Auto) 0.1, Neutrophils # (Auto) 14.0H, Lymphocytes # (Auto) 1.2L, Monocytes # (Auto) 0.3, Eosinophils # (Auto) 0.0, Basophils # (Auto) 0.0, Nucleated Red Blood Cells % (auto) 0.5H, Anion Gap 4L, Glomerular Filtration Rate > 60.0, Lactic Acid Level 2.4*H, Calcium Level 8.7L, Prothrombin Time 15.5H, Prothromb Time International Ratio 1.19, Activated Partial Thromboplast Time 34.9 02/05/21 08:28: Lactic Acid Followup at 4 Hours 1.7 CBC/BMP Laboratory Tests 02/04/21 15:48 02/04/21 23:16 02/05/21 03:55 Microbiology Microbiology 02/04/21 Blood Culture, Received Pending 02/04/21 Blood Culture, Received Pending 02/04/21 Respiratory Virus Panel (PCR) ([facility]) - Final, Complete JEROME APODACA MD Feb 05, 2021 11:45
[2021-02-05 14:38] LABS: BLOOD UREA NITROGEN 28 MG/DL (7-18); CALCIUM LEVEL 8.8 MG/DL (8.8-10.2); CARBON DIOXIDE LEVEL 29 MEQ/L (21-32); CHLORIDE LEVEL 110 MEQ/L (98-107); CREATININE FOR GFR 0.66 MG/DL (0.70-1.30); GLOMERULAR FILTRATION RATE > 60.0 (>35); GLUCOSE, FASTING 133 MG/DL (70-100); POTASSIUM SERUM 4.7 MEQ/L (3.5-5.1); SODIUM LEVEL 144 MEQ/L (136-145)
[2021-02-05] MEDS: SOD POLYSTYRENE SULFONATE SUSP 30 GM/120 ML ENEMA PR SCH ×2 (14:57→15:00)
--- NOTE | 2021-02-05 17:20 | REP ---
INDICATION: Aspiration. COMPARISON: NONE TECHNIQUE: The procedure was performed under the direct supervision of . The procedure was performed with Veronica Zhang from speech pathology present. 2.1 minutes of fluoroscopy time was utilized for this procedure. FINDINGS: Thin barium: Patient was instructed to take a swallow from the cup. There is laryngeal penetration. The patient was then instructed to take a swallow from a straw. With this there is no evidence of laryngeal penetration. The patient was then instructed to take multiple swallows from a straw. There is laryngeal penetration. Puddin cc aliquots of pudding consistency barium was administered. There is no evidence of penetration or aspiration. Mixed fruit: A 5 cc aliquots of mixed fruit barium was then administered. There is laryngeal penetration. Soft consistency barium: The wound patient was instructed to take a bite of bread with barium. With this there is laryngeal penetration identified. [place]: The patient was instructed to drink through the straw. With this there is laryngeal penetration. A detailed report of this examination will be provided by speech pathology. IMPRESSION: With thin, mixed fruit, soft and nectar consistency barium there is laryngeal penetration. RECOMMENDATION: A detailed report of this examination will be provided by speech pathology. IMPRESSION: A detailed report of this examination will be provided by speech pathology. <Electronically signed by Chris Elise > 02/05/21 [id number] <Electronically signed by Carson Ward > 02/05/21 [id number]
[2021-02-06] VITALS: BP 147/64
[2021-02-06] MEDS: AMPICILLIN SOD/SULBACTAM SOD 3 GM in D5W MINI-BAG PLUS 100 ML IV SCH ×2 (01:56→06:11)
[2021-02-06 05:47] LABS: BASO % 0.1 % (0.0-1.0); EOS # 0.3 10^3/uL (0.0-0.5); EOS % 1.3 % (0.0-3.0); HEMATOCRIT 36.8 % (42.0-52.0); HEMOGLOBIN 11.2 g/dl (13.5-17.5); LYMPH % 14.8 % (24.0-44.0); MEAN CORPUSCULAR HEMOGLOBIN 31.3 pg (27.0-33.0); MEAN CORPUSCULAR HGB CONC 30.4 g/dl (32.0-36.5); MEAN CORPUSCULAR VOLUME 102.8 fl (80.0-96.0); MONO # 1.8 10^3/uL (0.0-0.8); NEUTROPHILS # 15.1 10^3/uL (1.5-8.5); PLATELET COUNT, AUTOMATED 715 10^3/uL (150-450); RED BLOOD COUNT 3.58 10^6/uL (4.30-6.10)
[2021-02-06 06:00] VITALS: BP 156/72
[2021-02-06 06:04] LABS: BLOOD UREA NITROGEN 23 MG/DL (7-18); CALCIUM LEVEL 8.7 MG/DL (8.8-10.2); CARBON DIOXIDE LEVEL 30 MEQ/L (21-32); CHLORIDE LEVEL 110 MEQ/L (98-107); CREATININE FOR GFR 0.66 MG/DL (0.70-1.30); GLOMERULAR FILTRATION RATE > 60.0 (>35); GLUCOSE, FASTING 89 MG/DL (70-100); SODIUM LEVEL 145 MEQ/L (136-145)
[2021-02-06 06:16] LABS: WHITE BLOOD COUNT 20.5 10^3/uL (4.0-10.0)
[2021-02-06] MEDS: LEVALBUTEROL 1.25 MG/0.5 ML CONCENTRATE NEB INH SCH ×4 (07:19→20:10)
[2021-02-06] MEDS ORDERED: ISOVUE-370 76% 100ML VIAL As Ordered ONE (07:54)
[2021-02-06 07:55] LABS: NT-PRO BNP 1633 PG/ML (<450)
[2021-02-06] MEDS: MEROPENEM INJ 1 GM in IV 1 EA IV SCH ×2 (08:55→18:17)
--- NOTE | 2021-02-06 09:00 | REP ---
INDICATION: HYPOXIA. COMPARISON: PA and lateral chest dated 02/02/2021 and portable chest dated 02/04/2021. TECHNIQUE: Chest CT with IV contrast, CT pulmonary artery angiography. FINDINGS: There are no emboli in the pulmonary trunk or central pulmonary arteries. There are no emboli in the pulmonary artery lobe or segment branches. There are bilateral lower lobe infiltrates. The left lower lobe infiltrate is somewhat more consolidated than the right. There are no pleural effusions. There is no mediastinal, hilar or axillary lymphadenopathy. The thoracic aorta is unremarkable. Cardiac size appears enlarged. There is no pericardial effusion. The visualized upper abdominal contents are unremarkable. There are old healed fractures in the posterior arches of the left 4th through 11th ribs. IMPRESSION: There are no pulmonary emboli. Bibasilar infiltrates. No pleural effusions. No adenopathy. Cardiomegaly. Old healed multiple left rib fractures. <Electronically signed by Carson Dixon > 02/06/21 [id number]
[2021-02-06] MEDS ORDERED: FUROSEMIDE 100MG/10ML VIAL (J1940) IV ONE (09:20)
--- NOTE | 2021-02-06 10:25 | IPNPDOC ---
Text Note Date of Service The patient was seen on 02/06/21. NOTE No acute events overnight. He is awake and alert, but appears to be slightly s hort of breath, and is coughing a lot. VSSAF NAD abd - soft, nt, nd labs - below A) 80y/o male with aspiration pneumonia dysphagia P) NPO will plan on PEG tube once the patient is more stable, unless he can tolerate the pudding thick foods. Waiting on final speech path report. Ivan Saba DO VS,Lloyd, I+O VS, Lloyd, I+O Laboratory Tests 02/05/21 14:04 02/05/21 19:30 02/06/21 05:34 Vital Signs Date Time Temp Pulse Resp B/P (MAP) Pulse Ox O2 Delivery O2 Flow Rate FiO2 02/06/21 06:00 98.8 80 19 156/72 (100) 90 Nasal Cannula 2.0 l I&O- Last 24 Hours up to 6 AM 02/06/21 06:00 Intake Total 2350 ml Output Total 2050 ml Balance 300 ml TORI SABA DO Feb 06, 2021 10:25
[2021-02-06 10:30] VITALS: BP 147/68
[2021-02-06] MEDS ORDERED: DEXTROSE 50% 50 ML SYRINGE IV PRN (11:40)
[2021-02-06] MEDS ORDERED: GLUCAGON INJ 1MG VIAL SC PRN (11:40)
[2021-02-06] MEDS ORDERED: GLUCOSE 4GM CHEW TABLET PO PRN (11:40)
--- NOTE | 2021-02-06 11:44 | IPNPDOC ---
Date Seen The patient was seen on 02/06/21. Progress Note SUBJECTIVE: Patient had much more respiratory distress this morning . IV fluids were discontinued temporarily and patient was given 1 dose of IV Lasix And nebulizer worsening consolidation on CT chest Unasyn was discontinued currently on meropenem Due to worsening hypoxia patient's feeding tube placement has been postponed until respiratory status is improved He complains of congestion and shortness of breath without chest pain fever chills Nasogastric tube still in place without nausea vomiting Abdominal discomfort without pain OBJECTIVE: PHYSICAL EXAM: VITAL SIGNS: See below GENERAL: NG tube mild distress use of respiratory accessory muscles Answers appropriately HEENT: No pallor no jaundice anicteric. No carotid bruit No jugular venous distention (JVD), NG tube No thyromegaly or cervical adenopathy. Dry mucous membranes. LUNGS: Decreased air entry coarse breath sounds bilaterally HEART: S1, S2. Sinus No carotid bruit. No JVD ABDOMEN: Distended. Normoactive bowel sounds. No rebound or guarding. EXTREMITIES: No cyanosis or clubbing. LABORATORY DATA: See below MICROBIOLOGY: SEE BELOW IMAGING STUDIES: Chest x-ray 02/04/2021: Diffuse interstitial coarsening, increased from prior portable AP chest of 01/31/2021. No focal infiltrates. No lung masses or nodules. ASSESSMENT: This is an 80-year-old male, [facility] resident, medical orders for life-sustaining treatment (MOLST) form stating CPR with trial of intubation, with history of atrial fibrillation, currently sinus rhythm, osteoarthritis, prostate cancer with chronic indwelling Mcdonald catheter, hypertension, hyperlipidemia and dementia, with questionable "pancreas removed" admitted January 31, 2021 to February 03, 2021 for aspiration pneumonia and acute respiratory failure treated with IV Zosyn and vancomycin and transitioned to Avalox as outpatient and discharged back to [facility], presents again today with worsening respiratory distress and shortness of breath, found to have worsening on the chest-ray, admitted for recurrent aspiration. Recurrent aspiration pneumonia. Laryngeal penetration noted on esophagram Feeding tube placement postponed on 02/06/2021 due to respiratory distress from fluid overload and worsening aspiration with increasing leukocytosis. Received intravenous Unasyn from 02/04-02/06/2021. Started on meropenem 02/06/2021 CT chest increased consolidation Aspiration precautions Patient is demented and at risk of pulling nasogastric tube if placed Dysphagia In the setting of prior CVA and chronic A. fib Laryngeal penetration Second hospital admission for the same issue Currently n.p.o. General surgery Dr. Saba consulted for feeding tube placement but postponed on 02/06/2021 due to worsening respiratory distress D5 half-normal at 60 mL an hour to prevent hypoglycemia History of chronic atrial fibrillation. Sinus rhythm On no rate control medications due to n.p.o. status If becomes uncontrolled with heart rate greater than 120, patient may need to be transferred to PCU for IV metoprolol or IV amiodarone if he is hypotensive Since he had some respiratory distress today patient was given 1 dose of IV Lasix History of prostate cancer with chronic indwelling Mcdonald catheter. Chronic. Monitor for UTI History of chronic obstructive pulmonary disease (COPD). on his Xopenex nebulizer every 4 hours and every hour as needed. Compensated Hyperkalemia, resolved Status post Kayexalate, calcium gluconate and Continue telemetry monitoring for hyperkalemia. EKG had no peak T-waves or sine wave changes on admission EKG Hyperlipidemia. Chronic. Hypertension. Stable Since the patient is n.p.o., if systolic blood pressure is greater than 160 or diastolic greater than 90 patient may be given nitroglycerin patch or transferred to PCU for IV labetalol or metoprolol History of CVA in the setting of chronic Afib usually on eliquis held due to feeding tube placement Chronic hypoxic respiratory failure on 2-3liters home oxygen. titrate to o2sat 92% Chronic Dementia HCP is the patient's son. Pt is medically incompetent to make medical decisions. HCP consented to feeding tube if needed. Dyslipidemia Elevated BNP multi-factorial due to underlying COPD, possible pulmonary htn, possible cor pulmonale. Awaiting 2D echo report. monitor fluid balance. strict i/o. weigh daily. Lactic acidosis IV antibiotics and IV fluids CODE STATUS: Trial of intubation. Medical orders for life-sustaining treatment (MOLST) form signed. Patient's son is the healthcare proxy. Diet. Nothing by mouth. Feeding tube to be placed by general surgery Once respiratory status improves Deep venous thrombosis (DVT) prophylaxis. on lovenox sq. VS, I&O, 24H, Fishbone Vital Signs/I&O Vital Signs Date Time Temp Pulse Resp B/P (MAP) Pulse Ox O2 Delivery O2 Flow Rate FiO2 8/6/21 06:00 98.8 80 19 156/72 (100) 90 Nasal Cannula 2.0 I&O- Last 24 Hours up to 6 AM 02/06/21 06:00 Intake Total 2350 ml Output Total 2050 ml Balance 300 ml Laboratory Data 24H LABS Laboratory Tests 2 02/05/21 14:04: Anion Gap 5L, Glomerular Filtration Rate > 60.0, Lactic Acid Level 1.3, Calcium Level 8.8 02/06/21 05:34: Anion Gap 5L, Glomerular Filtration Rate > 60.0, Calcium Level 8.7L, Immature Granulocyte % (Auto) 0.8, Neutrophils (%) (Auto) 74.0H, Lymphocytes (%) (Auto) 14.8L, Monocytes (%) (Auto) 9.0H, Eosinophils (%) (Auto) 1.3, Basophils (%) (Auto) 0.1, Neutrophils # (Auto) 15.1H, Lymphocytes # (Auto) 3.0, Monocytes # (Auto) 1.8H, Eosinophils # (Auto) 0.3, Basophils # (Auto) 0.0, Nucleated Red Blood Cells % (auto) 0.8H, YV-Gsp-[id number]-Type Natriuretic Peptide 1633H 02/06/21 07:55: CBC/BMP Laboratory Tests 02/05/21 14:04 02/05/21 19:30 02/06/21 05:34 Microbiology Microbiology 02/04/21 Blood Culture - Preliminary, Resulted No growth after 24 hours . All specim... 02/04/21 Blood Culture - Preliminary, Resulted No growth after 24 hours . All specim... 02/04/21 Respiratory Virus Panel (PCR) ([facility]) - Final, Complete JEROME APODACA MD Feb 06, 2021 11:44
[2021-02-06 12:00] VITALS: BP 143/68
--- NOTE | 2021-02-06 12:17 | CR ---
CONSULTATION DATE: 02/05/2021 REASON FOR CONSULTATION: Percutaneous endoscopy gastrostomy (PEG) tube placement. HISTORY OF PRESENT ILLNESS: The patient is a 80-year-old male who presented to the hospital with shortness of breath and found to have aspiration pneumonia. He was treated in the hospital from the through the . He was then readmitted on the with recurrent aspiration pneumonia. Because of this and his dysphagia, recommendation was for PEG tube to be placed. PHYSICAL EXAMINATION: On examination, the patient is only alert person due to severe dementia. I was able to talk to his son on the phone, who claims that he has been getting drastically worse recently, but he has been dealing with his dementia for many years and he also notes that he is acutely worse when he is in the hospital as well. PAST MEDICAL HISTORY: 1. Aspiration pneumonia. 2. Coronavirus in September 2020. 3. Atrial fibrillation. 4. Osteoarthritis. 5. Prostate cancer. 6. Hypertension. 7. Dementia. 8. History of cerebrovascular accident (CVA). 9. Hyperlipidemia. PAST SURGICAL HISTORY: Right and left hip surgery. HOME MEDICATIONS: Please see med rec. ALLERGIES: None. SOCIAL HISTORY: Denies drug, alcohol and tobacco abuse. FAMILY HISTORY: Noncontributory. REVIEW OF SYSTEMS: Unable to obtain. LABORATORY DATA: White count 15.7, down from 20.2, hemoglobin 10.9, platelets 701, potassium 4.7, creatinine 0.66. IMAGING: Barium swallow was just completed today, which does show evidence of laryngeal penetration with almost everything except for pudding consistency. Full report from speech pathology is not yet available. ASSESSMENT AND PLAN: The patient is an 80-year-old male with aspiration pneumonia. He is able to tolerate pudding, thick consistency. However, does not appear to be able to tolerate anything else without aspiration. I did discuss the percutaneous endoscopy gastrostomy (PEG) tube with his son on the phone and he agrees that it would be a good idea. However, he is very concern that he will pull this out on his own and he wanted to see about the final results of the speech swallow evaluation prior to considering any type of tube placement. I discussed with him that we would plan for the tube placement tomorrow afternoon in the operating room and that I would discuss his feeding tube again after we get the final swallow results. All questions were answered and we will reevaluate in the morning and go from there.
[2021-02-06] MEDS: D5W/0.45% SODIUM CHLORIDE 1,000 ML IV SCH (12:52)
[2021-02-06] MEDS: ENOXAPARIN 80MG/0.8ML SYRINGE (J1650 PER 10MG) SC SCH (13:00)
[2021-02-06 14:00] VITALS: BP 144/68
[2021-02-06 21:33] VITALS: BP 133/70
[2021-02-07] MEDS: LEVALBUTEROL 1.25 MG/0.5 ML CONCENTRATE NEB INH SCH ×6 (01:02→20:01)
[2021-02-07] MEDS: ENOXAPARIN 80MG/0.8ML SYRINGE (J1650 PER 10MG) SC SCH ×2 (02:46→13:54)
[2021-02-07] MEDS: MEROPENEM INJ 1 GM in IV 1 EA IV SCH ×3 (02:47→17:07)
[2021-02-07] MEDS: D5W/0.45% SODIUM CHLORIDE 1,000 ML IV SCH ×2 (04:02→20:56)
[2021-02-07 06:04] VITALS: BP 139/77
--- NOTE | 2021-02-07 07:32 | IPNPDOC ---
Date Seen The patient was seen on 02/07/21. Progress Note SUBJECTIVE: peg tube postponed 02/06/21 due to increased wbc to 20 and respiratory distress c/o persistent malclearance of secretions needing oral suctioning. laryngeal penetration. ct chest: bl infiltrates. Per Surgeon-manager configuration Dr. Layton, defer peg tube until Dr. Saba returns on Tuesday. lovenox 1mg/kg sq [id number] for h/o cva and chronic afib. which is to be held 12 hrs prior to tube placement. +cough productive of white sputum. no fever o rchills OBJECTIVE: PHYSICAL EXAM: VITAL SIGNS: See below GENERAL: pleasantly confused. no distress HEENT: No pallor no jaundice anicteric. No carotid bruit No jugular venous distention (JVD), No thyromegaly or cervical adenopathy. Dry mucous membranes. LUNGS: Decreased air entry coarse breath sounds bilaterally HEART: S1, S2. Sinus No carotid bruit. No JVD ABDOMEN: soft nt nd Normoactive bowel sounds. No rebound or guarding. EXTREMITIES: No cyanosis or clubbing. LABORATORY DATA: See below MICROBIOLOGY: SEE BELOW IMAGING STUDIES: Chest x-ray 02/04/2021: Diffuse interstitial coarsening, increased from prior portable AP chest of 01/31/2021. No focal infiltrates. No lung masses or nodules. ASSESSMENT: This is an 80-year-old male, [facility] resident, medical orders for life-sustaining treatment (MOLST) form stating CPR with trial of intubation, with history of atrial fibrillation, currently sinus rhythm, osteoarthritis, prostate cancer with chronic indwelling Mcdonald catheter, hypertension, hyperlipidemia and dementia, with questionable "pancreas removed" admitted January 31, 2021 to February 03, 2021 for aspiration pneumonia and acute respiratory failure treated with IV Zosyn and vancomycin and transitioned to Avalox as outpatient and discharged back to [facility], presents again today with worsening respiratory distress and shortness of breath, found to have worsening on the chest-ray, admitted for recurrent aspiration. Recurrent aspiration pneumonia. was on unasyn on admission changed to meropenem 02/06/21 due to incr wbc and resp distress 02/07/21 ct chest: b/l infiltrates laryngeal penetration on ct chest feeding tube postponed until Dr. saba returns keep o2 sat>90% oral suctioning prn. Dysphagia In the setting of prior CVA and chronic A. fib Laryngeal penetration Second hospital admission for the same issue Currently n.p.o. General surgery Dr. Saba consulted for feeding tube placement but postponed on 02/06/2021 due to worsening respiratory distress D5 half-normal at 60 mL an hour to prevent hypoglycemia lasix bid to prevent fluid overload Fluid overload due to IVF for npo status on lasix. npo due to aspiration pna History of cva/chronic atrial fibrillation. on lovenox until peg tube is scheduled,then hold lovenox for 12 hrs. History of prostate cancer with chronic indwelling Mcdonald catheter. Chronic. Monitor for UTI History of chronic obstructive pulmonary disease (COPD). on his Xopenex nebulizer every 4 hours and every hour as needed. Compensated Hyperkalemia, resolved Status post Kayexalate, calcium gluconate and Hyperlipidemia. Chronic. Hypertension. Stable Chronic hypoxic respiratory failure on 2-3liters home oxygen. titrate to o2sat 92% Chronic Dementia HCP is the patient's son. Pt is medically incompetent to make medical decisions. HCP consented to feeding tube if needed. Dyslipidemia Lactic acidosis IV antibiotics and IV fluids CODE STATUS: Trial of intubation. Medical orders for life-sustaining treatment (MOLST) form signed. Patient's son is the healthcare proxy. Diet. Nothing by mouth. Feeding tube to be placed by general surgery Once respiratory status improves.Dr Saba will be available on Tuesday. Deep venous thrombosis (DVT) prophylaxis. on lovenox sq. VS, I&O, 24H, Fishbone Vital Signs/I&O Vital Signs Date Time Temp Pulse Resp B/P (MAP) Pulse Ox O2 Delivery O2 Flow Rate FiO2 02/06/21 21:33 97.9 84 20 133/70 (91) 93 Nasal Cannula 2.0 I&O- Last 24 Hours up to 6 AM 02/07/21 06:00 Intake Total 100 ml Output Total 3345 ml Balance -3245 ml Laboratory Data 24H LABS Laboratory Tests 2 02/06/21 07:55: Methicillin-Resist S.aureus DNA PCR NOT DETECTED 02/06/21 12:02: Bedside Glucose (Misc Panel) 115H 02/06/21 18:46: Bedside Glucose (Misc Panel) 113H 02/07/21 00:06: Bedside Glucose (Misc Panel) 115H 02/07/21 05:59: Bedside Glucose (Misc Panel) 116H Microbiology Microbiology 02/04/21 Blood Culture - Preliminary, Resulted No Growth after 48 hours. All Specime... 02/04/21 Blood Culture - Preliminary, Resulted No Growth after 48 hours. All Specime... 02/04/21 Respiratory Virus Panel (PCR) ([facility]) - Final, Complete JEROME APODACA MD Feb 07, 2021 07:32
--- NOTE | 2021-02-07 08:12 | REP ---
INDICATION: sob. COMPARISON: Portable chest dated 02/02/[address] dated 02/06/2021. TECHNIQUE: Portable AP chest with the patient sitting FINDINGS: Chronic interstitial coarsening is again identified. Superimposed upon this chronic interstitial coarsening there is a small focal infiltrate above the right hemidiaphragm and there is a small focal infiltrate superimposed over the heart inferiorly on the left. The On the comparison CT there were bibasilar infiltrates. No pleural effusions. Cardiac size is upper normal. The candy, mediastinum, and skeletal structures are unremarkable. IMPRESSION: Bibasilar infiltrates. <Electronically signed by Carson Dixon > 02/07/21 [id number]
[2021-02-07 08:20] LABS: BASO % 0.2 % (0.0-1.0); EOS # 0.7 10^3/uL (0.0-0.5); LYMPH # 3.4 10^3/uL (1.5-5.0); LYMPH % 20.7 % (24.0-44.0); MEAN CORPUSCULAR HEMOGLOBIN 31.1 pg (27.0-33.0); MEAN CORPUSCULAR HGB CONC 30.8 g/dl (32.0-36.5); MONO % 11.2 % (2.0-8.0); NEUTROPHILS # 10.4 10^3/uL (1.5-8.5); NEUTROPHILS % 62.9 % (36.0-66.0); PLATELET COUNT, AUTOMATED 716 10^3/uL (150-450); RED BLOOD COUNT 3.86 10^6/uL (4.30-6.10)
[2021-02-07] MEDS: FUROSEMIDE 20MG/2ML VIAL (J1940) IV SCH ×2 (08:32→17:07)
[2021-02-07 08:47] LABS: MONO # 1.9 10^3/uL (0.0-0.8); WHITE BLOOD COUNT 16.6 10^3/uL (4.0-10.0)
[2021-02-07 08:48] LABS: BLOOD UREA NITROGEN 17 MG/DL (7-18); CALCIUM LEVEL 8.7 MG/DL (8.8-10.2); CARBON DIOXIDE LEVEL 32 MEQ/L (21-32); CHLORIDE LEVEL 104 MEQ/L (98-107); CREATININE FOR GFR 0.61 MG/DL (0.70-1.30); ERYTHROCYTE SEDIMENTATION RATE 45 mm/hr (0-20); GLOMERULAR FILTRATION RATE > 60.0 (>35); GLUCOSE, FASTING 111 MG/DL (70-100); NT-PRO BNP 677 PG/ML (<450); POTASSIUM SERUM 3.2 MEQ/L (3.5-5.1); SODIUM LEVEL 140 MEQ/L (136-145)
[2021-02-07 14:00] VITALS: BP 135/77
[2021-02-07 22:00] VITALS: BP 136/65
[2021-02-08] MEDS: MEROPENEM INJ 1 GM in IV 1 EA IV SCH ×3 (01:40→17:26)
[2021-02-08] MEDS: ENOXAPARIN 80MG/0.8ML SYRINGE (J1650 PER 10MG) SC SCH ×2 (01:40→13:29)
[2021-02-08] MEDS: D5W/0.45% SODIUM CHLORIDE 1,000 ML IV SCH (01:41)
[2021-02-08] MEDS: LEVALBUTEROL 1.25 MG/0.5 ML CONCENTRATE NEB INH SCH ×6 (04:00→20:00)
[2021-02-08 04:58] VITALS: BP 136/75
[2021-02-08 06:53] LABS: BASO % 0.1 % (0.0-1.0); EOS # 0.9 10^3/uL (0.0-0.5); EOS % 6.6 % (0.0-3.0); HEMATOCRIT 40.4 % (42.0-52.0); HEMOGLOBIN 12.4 g/dl (13.5-17.5); LYMPH # 3.2 10^3/uL (1.5-5.0); LYMPH % 23.1 % (24.0-44.0); MEAN CORPUSCULAR HEMOGLOBIN 30.8 pg (27.0-33.0); MEAN CORPUSCULAR HGB CONC 30.7 g/dl (32.0-36.5); MEAN CORPUSCULAR VOLUME 100.5 fl (80.0-96.0); MONO # 1.4 10^3/uL (0.0-0.8); MONO % 10.3 % (2.0-8.0); NEUTROPHILS # 8.3 10^3/uL (1.5-8.5); NEUTROPHILS % 59.1 % (36.0-66.0); PLATELET COUNT, AUTOMATED 697 10^3/uL (150-450); RED BLOOD COUNT 4.02 10^6/uL (4.30-6.10)
[2021-02-08 07:12] LABS: BLOOD UREA NITROGEN 19 MG/DL (7-18); CALCIUM LEVEL 8.3 MG/DL (8.8-10.2); CARBON DIOXIDE LEVEL 34 MEQ/L (21-32); CHLORIDE LEVEL 99 MEQ/L (98-107); CREATININE FOR GFR 0.68 MG/DL (0.70-1.30); GLOMERULAR FILTRATION RATE > 60.0 (>35); GLUCOSE, FASTING 111 MG/DL (70-100); POTASSIUM SERUM 3.1 MEQ/L (3.5-5.1); SODIUM LEVEL 137 MEQ/L (136-145)
--- NOTE | 2021-02-08 08:56 | REP ---
INDICATION: sob. COMPARISON: Portable chest dated 02/07/2021. TECHNIQUE: Portable AP chest with the patient upright. FINDINGS: The bibasilar infiltrates have decreased in density. Chronic interstitial coarsening is unchanged. Cardiac size is upper normal. There are old left rib fractures, unchanged. IMPRESSION: The bibasilar infiltrates have decreased in density <Electronically signed by Carson Dixon > 02/08/21 08
[2021-02-08] MEDS: KCL 10MEQ/100ML SWI (KRUN) 10 MEQ in IV 1 EA IV SCH ×3 (08:58→11:59)
[2021-02-08] MEDS: FUROSEMIDE 20MG/2ML VIAL (J1940) IV SCH (08:58)
--- NOTE | 2021-02-08 09:03 | REP ---
INDICATION: abd pain. COMPARISON: None. TECHNIQUE: Single AP view the supine view of the abdomen performed portably. FINDINGS: There is no bowel distention or obstruction. There is opaque material in the ascending colon and to a lesser extent transverse colon and descending colon, likely residual barium from the modified barium swallow performed on 02/05/2021. No calcifications are identified. There is internal fixation of the hips bilaterally. The skeletal structures and soft tissues are otherwise unremarkable. IMPRESSION: There is no bowel distention or obstruction. Residual barium in the colon, likely from the modified barium swallow performed on 02/05/2021. <Electronically signed by Carson Dixon > 02/08/21 [id number]
--- NOTE | 2021-02-08 10:50 | IPNPDOC ---
Date Seen The patient was seen on 02/08/21. Progress Note SUBJECTIVE: Patient denies any shortness of breath chest pain he has occasional cough chest x-ray shows no pleural effusion or pulmonary edema Feeding tube has been postponed due to respiratory distress on Tuesday. Patient is currently medically stable and has no new complaints. White count has decreased on IV meropenem. He has had no fever or chills OBJECTIVE: PHYSICAL EXAM: VITAL SIGNS: See below GENERAL: Supine in bed with 30 head of bed elevation. Supplemental oxygen HEENT: Dry mucous membranes no pallor no jaundice anicteric. No carotid bruit No jugular venous distention (JVD), no use of respiratory accessory muscles able to speak in full sentences No thyromegaly or cervical adenopathy. No stridor LUNGS: Diminished breath sounds coarse rhonchi HEART: S1, S2. Sinus No carotid bruit. No JVD ABDOMEN: soft nt nd Normoactive bowel sounds. No rebound or guarding. EXTREMITIES: No cyanosis or clubbing. LABORATORY DATA: See below MICROBIOLOGY: SEE BELOW IMAGING STUDIES: Chest x-ray 02/04/2021: Diffuse interstitial coarsening, increased from prior portable AP chest of 01/31/2021. No focal infiltrates. No lung masses or nodules. ASSESSMENT: This is an 80-year-old male, [facility] resident, medical orders for life-sustaining treatment (MOLST) form stating CPR with trial of intubation, with history of atrial fibrillation, currently sinus rhythm, osteoarthritis, prostate cancer with chronic indwelling Mcdonald catheter, hypertension, hyperlipidemia and dementia, with questionable "pancreas removed" admitted January 31, 2021 to February 03, 2021 for aspiration pneumonia and acute respiratory failure treated with IV Zosyn and vancomycin and transitioned to Avalox as outpatient and discharged back to [facility], presents again today with worsening respiratory distress and shortness of breath, found to have worsening on the chest-ray, admitted for recurrent aspiration. Recurrent aspiration pneumonia. Patient was admitted for IV antibiotics. This is a second admission for the same issue. Family has decided to give consent for feeding tube placement. Evaluation for dysphagia shows laryngeal penetration Patient continues to have mild clearance of secretions and had respiratory distress and his feeding tube postponed last Tuesday After one dose of Lasix and IV fluids decreased patient's respiratory status has improved and currently medically stable to proceed with feeding tube placement Patient's white count has decreased currently on intravenous meropenem previously started on IV Unasyn. Is remained afebrile with no new complaints shortness of breath has resolved he has occasional cough Dysphagia In the setting of prior CVA and chronic A. fib Laryngeal penetration on swallow evaluation Despite recommendations from speech therapy to continue with oral intake patient continues to have laryngeal penetration and developed respiratory distress on Tuesday. Repeat imaging study showed no pulmonary edema or pleural effusion. He is continued on D5 half-normal saline until feeding tube is placed with judicious monitoring for fluid overload Fluid overload due to IVF for npo status on lasix. npo due to aspiration pna History of cva/chronic atrial fibrillation. Lovenox is held for upcoming feeding tube placement last dose will be on 02/08/2021 at 1400. Rate controlled History of prostate cancer with chronic indwelling Mcdonald catheter. Chronic. Monitor for UTI History of chronic obstructive pulmonary disease (COPD). on his Xopenex nebulizer every 4 hours and every hour as needed. Compensated Hyperkalemia, resolved Status post Kayexalate, calcium gluconate and Hyperlipidemia. Chronic. Hypertension. Stable Chronic hypoxic respiratory failure on 2-3liters home oxygen. titrate to o2sat 92% Chronic Dementia HCP is the patient's son. Pt is medically incompetent to make medical decisions. HCP consented to feeding tube if needed. Dyslipidemia Lactic acidosis IV antibiotics and IV fluids CODE STATUS: Trial of intubation. Medical orders for life-sustaining treatment (MOLST) form signed. Patient's son is the healthcare proxy. Diet. Nothing by mouth. Feeding tube to be placed by general surgery Currently on IV fluids monitoring for fluid overload while on IV fluids Deep venous thrombosis (DVT) prophylaxis. on lovenox sq. VS, I&O, 24H, Fishbone Vital Signs/I&O Vital Signs Date Time Temp Pulse Resp B/P (MAP) Pulse Ox O2 Delivery O2 Flow Rate FiO2 02/08/21 04:58 97.7 71 18 136/75 (95) 94 Nasal Cannula 2.0 I&O- Last 24 Hours up to 6 AM 02/08/21 06:00 Intake Total 100 ml Output Total 2250 ml Balance -2150 ml Laboratory Data 24H LABS Laboratory Tests 2 02/07/21 11:33: Bedside Glucose (Misc Panel) 120H 02/07/21 16:51: Bedside Glucose (Misc Panel) 143H 02/07/21 23:57: Bedside Glucose (Misc Panel) 122H 02/08/21 05:04: Bedside Glucose (Misc Panel) 118H 02/08/21 06:07: Immature Granulocyte % (Auto) 0.8, Neutrophils (%) (Auto) 59.1, Lymphocytes (%) (Auto) 23.1L, Monocytes (%) (Auto) 10.3H, Eosinophils (%) (Auto) 6.6H, Basophils (%) (Auto) 0.1, Neutrophils # (Auto) 8.3, Lymphocytes # (Auto) 3.2, Monocytes # (Auto) 1.4H, Eosinophils # (Auto) 0.9H, Basophils # (Auto) 0.0, Nucleated Red Blood Cells % (auto) 1.4H, Anion Gap 4L, Glomerular Filtration Rate > 60.0, Calcium Level 8.3L CBC/BMP Laboratory Tests 02/08/21 06:07 Microbiology Microbiology 02/04/21 Blood Culture - Preliminary, Resulted No Growth after 72 hours. All specime... 02/04/21 Blood Culture - Preliminary, Resulted No Growth after 72 hours. All specime... 02/04/21 Respiratory Virus Panel (PCR) ([facility]) - Final, Complete JEROME APODACA MD Feb 08, 2021 10:50
[2021-02-08 14:00] VITALS: BP 125/71
[2021-02-08] MEDS: FUROSEMIDE 40MG/4ML VIAL (J1940) IV SCH (17:26)
[2021-02-08 22:00] VITALS: BP 119/66
[2021-02-09] MEDS: MEROPENEM INJ 1 GM in IV 1 EA IV SCH ×3 (02:31→17:30)
[2021-02-09] MEDS: LEVALBUTEROL 1.25 MG/0.5 ML CONCENTRATE NEB INH SCH ×6 (04:00→20:00)
[2021-02-09 06:00] VITALS: BP_SYST 122; BP_SYST 128; BP_DIAS 62; BP_DIAS 72
[2021-02-09] MEDS: D5W/0.45% SODIUM CHLORIDE 1,000 ML IV SCH ×2 (06:59→23:33)
[2021-02-09 07:12] LABS: BASO # 0.1 10^3/uL (0.0-0.2); BASO % 0.4 % (0.0-1.0); EOS % 7.3 % (0.0-3.0); HEMATOCRIT 42.9 % (42.0-52.0); HEMOGLOBIN 13.2 g/dl (13.5-17.5); LYMPH # 3.2 10^3/uL (1.5-5.0); LYMPH % 23.4 % (24.0-44.0); MEAN CORPUSCULAR HGB CONC 30.8 g/dl (32.0-36.5); MEAN CORPUSCULAR VOLUME 100.7 fl (80.0-96.0); MONO # 1.4 10^3/uL (0.0-0.8); MONO % 10.4 % (2.0-8.0); NEUTROPHILS # 7.9 10^3/uL (1.5-8.5); NEUTROPHILS % 57.5 % (36.0-66.0); PLATELET COUNT, AUTOMATED 732 10^3/uL (150-450); RED BLOOD COUNT 4.26 10^6/uL (4.30-6.10); WHITE BLOOD COUNT 13.8 10^3/uL (4.0-10.0)
[2021-02-09 07:27] LABS: INR 1.09; PROTHROMBIN TIME 14.5 SECONDS (12.7-14.5)
[2021-02-09 07:28] LABS: BLOOD UREA NITROGEN 21 MG/DL (7-18); CALCIUM LEVEL 8.8 MG/DL (8.8-10.2); CARBON DIOXIDE LEVEL 35 MEQ/L (21-32); CHLORIDE LEVEL 97 MEQ/L (98-107); GLOMERULAR FILTRATION RATE > 60.0 (>35); GLUCOSE, FASTING 106 MG/DL (70-100); PARTIAL THROMBOPLASTIN TIME 35.7 SECONDS (25.9-37.0); POTASSIUM SERUM 4.5 MEQ/L (3.5-5.1); SODIUM LEVEL 138 MEQ/L (136-145)
[2021-02-09] MEDS: KCL 10MEQ/100ML SWI (KRUN) 10 MEQ in IV 1 EA IV SCH ×2 (08:05→09:48)
[2021-02-09] MEDS: FUROSEMIDE 40MG/4ML VIAL (J1940) IV SCH ×2 (10:16→17:30)
--- NOTE | 2021-02-09 11:43 | IPNPDOC ---
Text Note Date of Service The patient was seen on 02/09/21. NOTE No acute events overnight. I spoke with the son and daughter in law this am, and they both give consent for the PEG placement today. No changes to the H+P, and the consent is signed and on the chart. PEG placement in the OR this afternoon. Ivan Saba DO VS,Lloyd, I+O VS, [place], I+O Laboratory Tests 02/09/21 06:11 Vital Signs Date Time Temp Pulse Resp B/P (MAP) Pulse Ox O2 Delivery O2 Flow Rate FiO2 02/09/21 11:24 72 18 02/09/21 09:00 2.0 02/09/21 06:00 97.6 122/62 (82) 94 Nasal Cannula I&O- Last 24 Hours up to 6 AM 02/09/21 06:00 Intake Total 400 ml Output Total 750 ml Balance -350 ml TORI SABA DO Feb 09, 2021 11:43
[2021-02-09] MEDS ORDERED: fentaNYL 100 MCG/2 ML INJECTION (J3010) As Ordered ONE (12:15)
[2021-02-09] MEDS ORDERED: LIDOCAINE 2% 100MG/5ML SDV (FOR ANES.) As Ordered ONE (12:15)
[2021-02-09] MEDS ORDERED: propofoL 200 MG/20 ML VIAL As Ordered ONE (12:15)
[2021-02-09] MEDS ORDERED: ETOMIDATE INJ 20MG/10ML VIAL As Ordered ONE ×2 (12:15→12:16)
[2021-02-09] MEDS ORDERED: LIDOCAINE 1% MDV 20ML VIAL SC ONE (13:05)
[2021-02-09 13:54] VITALS: BP 127/68
[2021-02-09 14:25] VITALS: BP 118/66
--- NOTE | 2021-02-09 14:39 | IPNPDOC ---
Date Seen The patient was seen on 02/09/21. Progress Note SUBJECTIVE: Patient denies any shortness of breath chest pain pressure he has occasional cough No fever chills overnight. Patient is breathing is much better now that he is on Lasix. No other issues per nursing. feeding tube placement today OBJECTIVE: PHYSICAL EXAM: VITAL SIGNS: See below GENERAL: No distress speaks in full sentences HEENT: Dry mucous membranes no pallor no jaundice anicteric. No carotid bruit No jugular venous distention (JVD), no use of respiratory accessory muscles No thyromegaly or cervical adenopathy. No stridor LUNGS: Diminished breath HEART: S1, S2. Sinus No carotid bruit. No JVD ABDOMEN: soft nt nd Normoactive bowel sounds. No rebound or guarding. EXTREMITIES: No cyanosis or clubbing. LABORATORY DATA: See below MICROBIOLOGY: SEE BELOW IMAGING STUDIES: Chest x-ray 02/04/2021: Diffuse interstitial coarsening, increased from prior portable AP chest of 01/31/2021. No focal infiltrates. No lung masses or nodules. ASSESSMENT: This is an 80-year-old male, [facility] resident, medical orders for life-sustaining treatment (MOLST) form stating CPR with trial of intubation, with history of atrial fibrillation, currently sinus rhythm, osteoarthritis, prostate cancer with chronic indwelling Mcdonald catheter, hypertension, hyperlipidemia and dementia, with questionable "pancreas removed" admitted January 31, 2021 to February 03, 2021 for aspiration pneumonia and acute respiratory failure treated with IV Zosyn and vancomycin and transitioned to Avelox as outpatient and discharged back to [facility], presents again today with worsening respiratory distress and shortness of breath, found to have worsening on the chest-ray, admitted for recurrent aspiration. Recurrent aspiration pneumonia. This is the patient's second admission for aspiration pneumonia previously treated with Vanco Zosyn and discharged home on Avelox On admission patient was on Unasyn but had respiratory distress with increasing white count and change management to IV meropenem He is still n.p.o. Feeding tube placement today Speech evaluation shows laryngeal penetration Dysphagia In the setting of prior CVA and chronic A. fib Laryngeal penetration on swallow evaluation Feeding tube placement today Fluid overload due to IVF given on hospital admission due tonpo status Respiratory status improved after patient was placed on IV Lasix Awaiting echo report History of cva/chronic atrial fibrillation. Lovenox is held for upcoming feeding tube placement last dose will be on 02/08/2021 at 1400. Rate controlled on no medications History of prostate cancer with chronic indwelling Mcdonald catheter. Chronic. Monitor for UTI History of chronic obstructive pulmonary disease (COPD). on his Xopenex nebulizer every 4 hours and every hour as needed. Compensated Hyperkalemia, resolved Status post Kayexalate, calcium gluconate and Hyperlipidemia. Chronic. Hypertension. Stable Chronic hypoxic respiratory failure on 2-3liters home oxygen. titrate to o2sat 92% Chronic Dementia HCP is the patient's son. Pt is medically incompetent to make medical decisions. HCP consented to feeding tube if needed. Dyslipidemia Lactic acidosis IV antibiotics and IV fluids CODE STATUS: Trial of intubation. Medical orders for life-sustaining treatment (MOLST) form signed. Patient's son is the healthcare proxy. Diet. Nothing by mouth. Feeding tube to be placed by general surgery VS, I&O, 24H, Fishbone Vital Signs/I&O Vital Signs Date Time Temp Pulse Resp B/P (MAP) Pulse Ox O2 Delivery O2 Flow Rate FiO2 02/09/21 13:54 98.7 82 18 127/68 (87) 93 Nasal Cannula 2.0 I&O- Last 24 Hours up to 6 AM 02/09/21 06:00 Intake Total 400 ml Output Total 750 ml Balance -350 ml Laboratory Data 24H LABS Laboratory Tests 2 02/08/21 16:51: Bedside Glucose (Misc Panel) 112H 02/09/21 00:46: Bedside Glucose (Misc Panel) 109 02/09/21 05:26: Bedside Glucose (Misc Panel) 112H 02/09/21 06:11: Immature Granulocyte % (Auto) 1.0, Neutrophils (%) (Auto) 57.5, Lymphocytes (%) (Auto) 23.4L, Monocytes (%) (Auto) 10.4H, Eosinophils (%) (Auto) 7.3H, Basophils (%) (Auto) 0.4, Neutrophils # (Auto) 7.9, Lymphocytes # (Auto) 3.2, Monocytes # (Auto) 1.4H, Eosinophils # (Auto) 1.0H, Basophils # (Auto) 0.1, Nucleated Red Blood Cells % (auto) 0.7H, Prothrombin Time 14.5H, Prothromb Time International Ratio 1.09, Activated Partial Thromboplast Time 35.7, Anion Gap 6L, Glomerular Filtration Rate > 60.0, Calcium Level 8.8 CBC/BMP Laboratory Tests 02/09/21 06:11 Microbiology Microbiology 02/04/21 Blood Culture - Preliminary, Resulted No Growth after 72 hours. All specime... 02/04/21 Blood Culture - Preliminary, Resulted No Growth after 72 hours. All specime... 02/04/21 Respiratory Virus Panel (PCR) ([facility]) - Final, Complete JEROME APODACA MD Feb 09, 2021 14:39
[2021-02-09 15:25] VITALS: BP 125/60
--- NOTE | 2021-02-09 15:47 | RO ---
OPERATIVE NOTE DATE OF OPERATION: 02/09/2021 PREOPERATIVE DIAGNOSIS: Dysphagia. POSTOPERATIVE DIAGNOSIS: Dysphagia. PROCEDURE: Percutaneous endoscopic gastrostomy tube placement. SURGEON: Carson Saba DO FAST FOOD ATTENDANT: None. ANESTHESIA: IV sedation with 5 mL of 1% lidocaine local. COMPLICATIONS: None. ESTIMATED BLOOD LOSS: 2 mL INDICATIONS FOR PROCEDURE: The patient is an 80-year-old male with severe dementia, dysphagia, presents with aspiration pneumonia. Recommendation is to proceed with PEG tube placement. Risks and benefits of the procedure not limited to but include bleeding, infection, perforation, damage to surrounding structures, need for further surgery were discussed in detail with the patient's son who is DPOA and he gave verbal consent over the phone. PROCEDURE: The patient was brought into operating room 7. After sufficient sedation and a timeout was done to confirm proper patient, proper procedure, following that endoscope was passed down the esophagus into the stomach. The stomach was insufflated. I was able to transilluminate through the abdominal wall in the upper midline as well as palpate. The upper abdomen was then prepped and draped with some chlorhexidine. Local was injected in the skin, subcutaneous tissue overlying that followed by a 5 cm incision with an 11 blade scalpel. The needle was then passed through the abdominal wall into the stomach under direct visualization and a guidewire was passed. The guidewire was brought out through the esophagus and the stomach. The 20 Mongolian tube was then passed over top of the guidewire and brought out through the abdominal wall. Once the tube was placed, guidewire was removed. The scope was reinserted to confirm proper placement and that there was no bleeding from the gastric lumen. The scope was then fastened in place at about 2.5 to 3 cm with a bumper and a clamp. Once the tube was in place, it was cleaned and dried. 4x4 dressing was applied. MTDD
[2021-02-09 22:00] VITALS: BP 115/76
[2021-02-10] MEDS: MEROPENEM INJ 1 GM in IV 1 EA IV SCH ×3 (02:04→17:48)
[2021-02-10] MEDS: LEVALBUTEROL 1.25 MG/0.5 ML CONCENTRATE NEB INH SCH ×7 (03:25→20:00)
[2021-02-10 06:00] VITALS: BP 117/72
[2021-02-10 06:14] LABS: BASO # 0.1 10^3/uL (0.0-0.2); BASO % 0.3 % (0.0-1.0); EOS # 0.2 10^3/uL (0.0-0.5); EOS % 1.3 % (0.0-3.0); HEMATOCRIT 43.1 % (42.0-52.0); HEMOGLOBIN 13.6 g/dl (13.5-17.5); LYMPH # 3.1 10^3/uL (1.5-5.0); LYMPH % 17.1 % (24.0-44.0); MEAN CORPUSCULAR HEMOGLOBIN 31.1 pg (27.0-33.0); MEAN CORPUSCULAR HGB CONC 31.6 g/dl (32.0-36.5); MEAN CORPUSCULAR VOLUME 98.4 fl (80.0-96.0); MONO # 2.3 10^3/uL (0.0-0.8); MONO % 12.9 % (2.0-8.0); NEUTROPHILS # 12.1 10^3/uL (1.5-8.5); NEUTROPHILS % 67.4 % (36.0-66.0); PLATELET COUNT, AUTOMATED 724 10^3/uL (150-450); RED BLOOD COUNT 4.38 10^6/uL (4.30-6.10)
[2021-02-10 06:46] LABS: BLOOD UREA NITROGEN 19 MG/DL (7-18); CALCIUM LEVEL 8.5 MG/DL (8.8-10.2); CARBON DIOXIDE LEVEL 34 MEQ/L (21-32); CHLORIDE LEVEL 95 MEQ/L (98-107); CREATININE FOR GFR 0.75 MG/DL (0.70-1.30); GLOMERULAR FILTRATION RATE > 60.0 (>35); GLUCOSE, FASTING 142 MG/DL (70-100); POTASSIUM SERUM 4.5 MEQ/L (3.5-5.1); SODIUM LEVEL 134 MEQ/L (136-145)
--- NOTE | 2021-02-10 08:13 | IPNPDOC ---
Text Note Date of Service The patient was seen on 02/10/21. NOTE No acute events overnight. PEG tube was successfully placed yesterday. VSSAF NAD abd - soft, TTP appropriate, ND, dressing in place labs - below A) 80y/o male with dysphagia and dementia aspiration pneumonia P) ok to start tube feeds today. I placed an initial order to get them started and requested a dietary eval. His feeds can be adjusted after the eval is completed. Ivan Saba DO VS,Lloyd, I+O VS, [place], I+O Laboratory Tests 02/10/21 06:01 Vital Signs Date Time Temp Pulse Resp B/P (MAP) Pulse Ox O2 Delivery O2 Flow Rate FiO2 02/10/21 07:21 72 18 02/10/21 06:00 98.5 117/72 (87) 94 Nasal Cannula 2.0 I&O- Last 24 Hours up to 6 AM 02/10/21 06:00 Intake Total 800 ml Output Total 3150 ml Balance -2350 ml TORI SABA DO Feb 10, 2021 08:13
[2021-02-10] MEDS: FUROSEMIDE 40MG/4ML VIAL (J1940) IV SCH (08:49)
[2021-02-10] MEDS ORDERED: APIXABAN 5 MG TAB (ELIQUIS) PO SCH (09:00)
[2021-02-10] MEDS ORDERED: OLANZapine 5 MG TAB PO SCH (09:00)
--- NOTE | 2021-02-10 11:41 | IPNPDOC ---
Subjective Date Seen The patient was seen on 02/10/21. Subjective Chief Complaint/HPI Patient awake alert lying in bed in no acute distress. Does not answer verbally this morning however tracks a person in the room. His PEG tube was placed yesterday we'll start tube feeding today. No fever or chills no cough. Objective Physical Examination General Exam: Positive: Alert, Cooperative, No Acute Distress Eye Exam: Positive: PERRLA, Conjunctiva & lids normal ENT Exam: Positive: Atraumatic, Tongue Midline Neck Exam: Positive: Supple; Negative: JVD, thyromegaly Chest Exam: Positive: Clear to auscultation, Normal air movement Heart Exam: Positive: Rate Normal, Irregular Rhythm, Normal S1, Normal S2, Murmurs (Soft systolic murmur at the aortic area); Negative: Rubs Abdomen Exam: Positive: Normal bowel sounds, Soft, Other (PEG tube in place); Negative: Tenderness Extremity Exam: Negative: Clubbing, Cyanosis, Edema Psych Exam: Negative: Oriented x 3 Assessment /Plan Assessment This is an 80-year-old male, [facility] resident, history of atrial fibrillation, currently sinus rhythm, osteoarthritis, prostate cancer with chronic indwelling Mcdonald catheter, hypertension, hyperlipidemia and dementia, with questionable "pancreas removed" admitted January 31, 2021 to February 03, 2021 for aspiration pneumonia and acute respiratory failure treated with IV Zosyn and vancomycin and transitioned to Avelox as outpatient and discharged back to [facility], presents back to ED on 02/04/2021 with worsening respiratory distress and shortness of breath, found to have worsening on the chest-ray, admitted for recurrent aspiration. Recurrent aspiration pneumonia. This is the patient's second admission for aspiration pneumonia On IV meropenem Speech evaluation shows laryngeal penetration s/p Feeding tube placement on 02/09/2021 Dysphagia In the setting of prior CVA and dementia Laryngeal penetration on swallow evaluation Feeding tube placement done We'll start tube feeding Fluid overload Resolved Looks euvolemic We'll stop IV Lasix Echo report pending History of cva/chronic atrial fibrillation. Rate controlled on no medications Will restart Eliquis History of prostate cancer with chronic indwelling Mcdonald catheter. Monitor for UTI History of chronic obstructive pulmonary disease (COPD). on his Xopenex nebulizer every 4 hours and every hour as needed. Compensated Chronic hypoxic respiratory failure on 2-3liters home oxygen. titrate to o2sat 92% Hyperkalemia, resolved Hyperlipidemia. Chronic. Hypertension. Stable Dementia HCP is the patient's son. Pt is medically incompetent to make medical decisions. Lactic acidosis Resolved Plan/VTE VTE Prophylaxis Ordered?: Yes VS, I&O, 24H, Fishbone Vital Signs/I&O Vital Signs Date Time Temp Pulse Resp B/P (MAP) Pulse Ox O2 Delivery O2 Flow Rate FiO2 02/10/21 11:11 72 18 02/10/21 06:00 98.5 117/72 (87) 94 Nasal Cannula 2.0 I&O- Last 24 Hours up to 6 AM 02/10/21 06:00 Intake Total 800 ml Output Total 3150 ml Balance -2350 ml Laboratory Data 24H LABS Laboratory Tests 2 02/09/21 17:08: Bedside Glucose (Misc Panel) 112H 02/10/21 00:35: Bedside Glucose (Misc Panel) 168H 02/10/21 06:01: Immature Granulocyte % (Auto) 1.0, Neutrophils (%) (Auto) 67.4H, Lymphocytes (%) (Auto) 17.1L, Monocytes (%) (Auto) 12.9H, Eosinophils (%) (Auto) 1.3, Basophils (%) (Auto) 0.3, Neutrophils # (Auto) 12.1H, Lymphocytes # (Auto) 3.1, Monocytes # (Auto) 2.3H, Eosinophils # (Auto) 0.2, Basophils # (Auto) 0.1, Nucleated Red Blood Cells % (auto) 0.2H, Anion Gap 5L, Glomerular Filtration Rate > 60.0, Calcium Level 8.5L CBC/BMP Laboratory Tests 02/10/21 06:01 Microbiology Microbiology 02/04/21 Blood Culture - Final, Complete NO GROWTH AFTER 5 DAYS 02/04/21 Blood Culture - Final, Complete NO GROWTH AFTER 5 DAYS 02/04/21 Respiratory Virus Panel (PCR) ([facility]) - Final, Complete IVANIA NOLEN MD Feb 10, 2021 11:41
[2021-02-10 14:00] VITALS: BP 118/71
[2021-02-10] MEDS ORDERED: ACETAMINOPHEN 500 MG TAB PO SCH (16:00)
[2021-02-10] MEDS: ACETAMINOPHEN 500 MG TAB PEG SCH ×2 (17:49→23:14)
[2021-02-10] MEDS: OLANZapine 5 MG TAB PEG SCH (17:50)
[2021-02-10 22:00] VITALS: BP 121/72
[2021-02-10] MEDS: APIXABAN 5 MG TAB (ELIQUIS) PEG SCH (23:14)
[2021-02-11] MEDS: LEVALBUTEROL 1.25 MG/0.5 ML CONCENTRATE NEB INH SCH ×7 (01:34→23:53)
[2021-02-11] MEDS: MEROPENEM INJ 1 GM in IV 1 EA IV SCH (02:54)
[2021-02-11 06:00] VITALS: BP 111/68
[2021-02-11 06:36] LABS: BASO % 0.3 % (0.0-1.0); EOS # 0.5 10^3/uL (0.0-0.5); EOS % 3.4 % (0.0-3.0); HEMATOCRIT 45.1 % (42.0-52.0); HEMOGLOBIN 14.3 g/dl (13.5-17.5); LYMPH # 2.4 10^3/uL (1.5-5.0); LYMPH % 17.1 % (24.0-44.0); MEAN CORPUSCULAR HEMOGLOBIN 31.2 pg (27.0-33.0); MEAN CORPUSCULAR HGB CONC 31.7 g/dl (32.0-36.5); MEAN CORPUSCULAR VOLUME 98.5 fl (80.0-96.0); MONO % 12.9 % (2.0-8.0); NEUTROPHILS % 65.6 % (36.0-66.0); PLATELET COUNT, AUTOMATED 644 10^3/uL (150-450); RED BLOOD COUNT 4.58 10^6/uL (4.30-6.10)
[2021-02-11 06:51] LABS: BLOOD UREA NITROGEN 24 MG/DL (7-18); CALCIUM LEVEL 9.3 MG/DL (8.8-10.2); CARBON DIOXIDE LEVEL 37 MEQ/L (21-32); CHLORIDE LEVEL 94 MEQ/L (98-107); CREATININE FOR GFR 0.85 MG/DL (0.70-1.30); GLOMERULAR FILTRATION RATE > 60.0 (>35); GLUCOSE, FASTING 125 MG/DL (70-100); POTASSIUM SERUM 4.1 MEQ/L (3.5-5.1); SODIUM LEVEL 136 MEQ/L (136-145)
[2021-02-11 07:08] LABS: WHITE BLOOD COUNT 13.7 10^3/uL (4.0-10.0)
[2021-02-11 07:09] LABS: MONO # 1.8 10^3/uL (0.0-0.8)
[2021-02-11] MEDS ORDERED: METO1TAB87 PEG (09:09)
[2021-02-11] MEDS ORDERED: OLAN1TAB16 PEG (09:09)
[2021-02-11] MEDS ORDERED: ACET-683 PEG (09:13)
[2021-02-11] MEDS ORDERED: ELIQ5TAB PEG (09:13)
[2021-02-11] MEDS ORDERED: MILKSUS3 PEG (09:13)
[2021-02-11] MEDS ORDERED: [UNRECOGNIZED DRUG - CODE] PEG (09:13)
[2021-02-11] MEDS ORDERED: SENN-23 PEG (09:13)
[2021-02-11] MEDS ORDERED: BACITAB PEG (09:13)
--- NOTE | 2021-02-11 09:22 | DS.PDOC ---
Discharge Summary General Date of Admission Feb 04, 2021 at 17:20 Date of Discharge 02/11/21 Discharge Summary PROCEDURES PERFORMED DURING STAY: PEG tube placement on 02/09/2021 DISCHARGE DIAGNOSES: Recurrent aspiration pneumonia Dysphagia now with PEG tube in place Lactic acidosis resolved Hyperkalemia resolved Secondary diagnosis Paroxysmal atrial fibrillation, osteoarthritis, Prostate cancer with chronic indwelling Mcdonald catheter, hypertension, hyperlipidemia, dementia, COPD with chronic hypoxic respiratory failure, history of questionable "pancreas removed" COMPLICATIONS/CHIEF COMPLAINT: Aspiration Pneumonia. HOSPITAL COURSE: This is an 80-year-old male, [facility] resident, history of atrial fibrillation, currently sinus rhythm, osteoarthritis, prostate cancer with chronic indwelling Mcdonald catheter, hypertension, hyperlipidemia and dementia, with questionable "pancreas removed" admitted January 31, 2021 to February 03, 2021 for aspiration pneumonia and acute respiratory failure treated with IV Zosyn and vancomycin and transitioned to Avelox as outpatient and discharged back to [facility], presents back to ED on 02/04/2021 with worsening respiratory distress and shortness of breath, found to have worsening on the chest-ray, admitted for recurrent aspiration. Recurrent aspiration pneumonia. This is the patient's second admission for aspiration pneumonia Finished 5-day course of meropenem Speech evaluation shows laryngeal penetration s/p Feeding tube placement on 02/09/2021 Dysphagia In the setting of prior CVA and dementia Laryngeal penetration on swallow evaluation Feeding tube placement done We'll start tube feeding Fluid overload Resolved Looks euvolemic Echo report pending History of cva/chronic atrial fibrillation. Rate controlled on no medications in hospital. Will resume metoprolol restart Eliquis History of prostate cancer with chronic indwelling Mcdonald catheter. Monitor for UTI History of chronic obstructive pulmonary disease (COPD). on his Xopenex nebulizer every 4 hours and every hour as needed. Compensated Chronic hypoxic respiratory failure on 2-3liters home oxygen. titrate to o2sat 92% Hyperkalemia, resolved Hyperlipidemia. Chronic. Hypertension. Stable Dementia HCP is the patient's son. Pt is medically incompetent to make medical decisions. Lactic acidosis Resolved DISCHARGE MEDICATIONS: Please see below. ALLERGIES: Please see below. PHYSICAL EXAMINATION ON DISCHARGE: VITAL SIGNS: Please see below. General Exam: Positive: Alert, Cooperative, No Acute Distress Eye Exam: Positive: PERRLA, Conjunctiva & lids normal ENT Exam: Positive: Atraumatic, Tongue Midline Neck Exam: Positive: Supple; Negative: JVD, thyromegaly Chest Exam: Positive: Clear to auscultation, Normal air movement Heart Exam: Positive: Rate Normal, Irregular Rhythm, Normal S1, Normal S2, Murmurs (Soft systolic murmur at the aortic area); Negative: Rubs Abdomen Exam: Positive: Normal bowel sounds, Soft, Other (PEG tube in place); Negative: Tenderness Extremity Exam: Negative: Clubbing, Cyanosis, Edema Psych Exam: Negative: Oriented x 3 LABORATORY DATA: Please see below. ACTIVITY: [As tolerated]. DIET: Tube feeding with his Jevity 1.5 @60 cc/h with free water 140 cc every 4 hours DISCHARGE PLAN: [facility]SV ITEMS TO FOLLOWUP ON ON OUTPATIENT: Follow-up echo report If any issues with PEG tube please refer to Dr. Saba as needed DISCHARGE CONDITION: [Stable]. TIME SPENT ON DISCHARGE: 35 minutes. Vital Signs/I&Os Vital Signs Date Time Temp Pulse Resp B/P (MAP) Pulse Ox O2 Delivery O2 Flow Rate FiO2 02/11/21 07:26 76 18 02/11/21 06:00 97.8 111/68 (82) 92 Nasal Cannula 2.0 I&O- Last 24 Hours up to 6 AM 02/11/21 06:00 Intake Total 1020 ml Output Total 875 ml Balance 145 ml Laboratory Data Labs 24H Laboratory Tests 2 02/10/21 11:31: Bedside Glucose (Misc Panel) 143H 02/10/21 23:59: Bedside Glucose (Misc Panel) 138H 02/11/21 06:13: Immature Granulocyte % (Auto) 0.7, Neutrophils (%) (Auto) 65.6, Lymphocytes (%) (Auto) 17.1L, Monocytes (%) (Auto) 12.9H, Eosinophils (%) (Auto) 3.4H, Basophils (%) (Auto) 0.3, Neutrophils # (Auto) 9.0H, Lymphocytes # (Auto) 2.4, Monocytes # (Auto) 1.8H, Eosinophils # (Auto) 0.5, Basophils # (Auto) 0.0, Nucleated Red Blood Cells % (auto) 0.2H, Anion Gap 5L, Glomerular Filtration Rate > 60.0, Calcium Level 9.3 CBC/BMP Laboratory Tests 02/11/21 06:13 FSBS Laboratory Tests Test 8/10/21 11:31 02/10/21 23:59 Range/Units Bedside Glucose (Misc Panel) 143 138 83-110 MG/DL Microbiology Microbiology 02/04/21 Blood Culture - Final, Complete NO GROWTH AFTER 5 DAYS 02/04/21 Blood Culture - Final, Complete NO GROWTH AFTER 5 DAYS 02/04/21 Respiratory Virus Panel (PCR) ([facility]) - Final, Complete Discharge Medications Scheduled Acetaminophen (Acetaminophen) 500 Mg Tablet, 500 MG PEG TID Apixaban (Eliquis) 5 Mg Tablet, 5 MG PEG BID Guaifenesin/Dextromethorphan (Adult Wal-Tussin Dm Syrup) 118 Ml Syrup, 20 ML PEG TID L.acidoph/L.bulg/B.bif/S.therm (Bacid Caplet) 1 Each Tablet, 1 TAB PEG DAILY Levalbuterol HCl (Levalbuterol HCl) 0.63 Mg/3 Ml Vial.neb, 0.63 MG INH QID, (Reported) 0000, 0600, 1200, 1800 Metoprolol Tartrate (Metoprolol Tartrate) 25 Mg Tablet, 1 TAB PEG BID Olanzapine (Olanzapine) 5 Mg Tablet, 5 MG PEG DAILY Sennosides/Docusate Sodium (Senna-S Tablet) 1 Each Tablet, 1 TAB PEG DAILY Scheduled PRN Acetaminophen (Acetaminophen) 325 Mg Tablet, 650 MG PO Q4H PRN for MILD PAIN (PS 1-4), (Reported) Acetaminophen (Feverall) 650 Mg Supp.rect, 650 MG AZ Q4H PRN for FEVER, (Reported) Bisacodyl (Dulcolax) 10 Mg Supp.rect, 10 MG AZ DAILY PRN for CONSTIPATION, (Reported) Levalbuterol HCl (Levalbuterol Concentrate) 1.25 Mg/0.5 Ml Vial.neb, 1.25 MG INH Q2H PRN for SHORTNESS OF BREATH, (Reported) Magnesium Hydroxide (Milk of Magnesia) 400 Mg/5 Ml Oral.susp, 30 ML PEG DAILY PRN for CONSTIPATION Sodium Phosphate,Vance-Dibasic (Enema) 133 Ml Enema, 1 ELODIA [place] DAILY PRN for CONSTIPATION, (Reported) Allergies Coded Allergies: No Known Drug Allergies (Verified Allergy, Unknown, 01/31/21) IVANIA NOLEN MD Feb 11, 2021 09:22
[2021-02-11] MEDS: ACETAMINOPHEN 500 MG TAB PEG SCH ×3 (09:39→21:45)
[2021-02-11] MEDS: APIXABAN 5 MG TAB (ELIQUIS) PEG SCH ×2 (09:39→21:45)
[2021-02-11] MEDS: OLANZapine 5 MG TAB PEG SCH (09:40)
--- NOTE | 2021-02-11 12:03 | ECHO ---
ECHOCARDIOGRAM DATE OF PROCEDURE: 02/05/2021 Age: 80 Gender: Male Height: 172 cm Weight: 71.6 kg REFERRING PHYSICIAN: Korin Barrios M.D. PATIENT LOCATION: Room 3220. REASON FOR THE TESTING: MEASUREMENTS: 2D Measurements: IVS 1.3 cm LV 3.3 cm LVPW 1.2 cm LA 3.7 cm Aorta 3.4 cm IVC 2.4 cm Doppler Measurements: Peak velocity across the aortic valve 2.0 m/sec Peak velocity across the LVOT 0.65 m/sec Mitral E 0.88 Mitral A 0.92 with a ratio of less than 1.0 2D COMMENTS: 1. Normal left ventricular size, wall thickness and normal global left ventricular systolic function. The estimated left ventricular systolic ejection fraction is 55-65%. 2. Normal left atrium. Normal right atrium and right ventricle. 3. The atrial septum appeared to be normal without evidence of defect or shunt. 4. Normal aortic root. 5. No pericardial effusion. 6. Moderately calcified aortic valve with mildly restricted leaflet motion. Mildly calcified mitral annulus with normal anterior mitral valve leaflet motion. Normal tricuspid valve and pulmonic valve. The proximal pulmonary artery branches were not well visualized. 7. The inferior vena cava was mildly enlarged. Central venous pressure might be elevated. DOPPLER: Only mild aortic regurgitation detected. Abnormal relaxation pattern was noted across the mitral valve leaflets as well as the mitral valve annulus consistent with features of grade 1 left ventricular diastolic dysfunction. IMPRESSION: 1. Normal global left ventricular systolic function with mild concentric left ventricular hypertrophy. There were some features of left ventricular diastolic dysfunction manifested by abnormal relaxation. 2. Aortic valve sclerosis with mild aortic stenosis and mild aortic regurgitation. 3. The inferior vena cava was mildly enlarged. Central venous pressure might be elevated. 4. This study was technically limited due to poor acoustic window.
[2021-02-11 14:00] VITALS: BP 111/67
[2021-02-11 22:00] VITALS: BP 112/59
[2021-02-12] MEDS: LEVALBUTEROL 1.25 MG/0.5 ML CONCENTRATE NEB INH SCH ×3 (03:51→20:00)
[2021-02-12 06:00] VITALS: BP 109/67
[2021-02-12 08:13] LABS: BASO # 0.1 10^3/uL (0.0-0.2); BASO % 0.4 % (0.0-1.0); EOS # 0.7 10^3/uL (0.0-0.5); EOS % 5.7 % (0.0-3.0); HEMOGLOBIN 12.9 g/dl (13.5-17.5); LYMPH # 2.2 10^3/uL (1.5-5.0); LYMPH % 17.2 % (24.0-44.0); MEAN CORPUSCULAR HGB CONC 31.5 g/dl (32.0-36.5); MEAN CORPUSCULAR VOLUME 98.6 fl (80.0-96.0); MONO # 1.7 10^3/uL (0.0-0.8); PLATELET COUNT, AUTOMATED 660 10^3/uL (150-450); RED BLOOD COUNT 4.16 10^6/uL (4.30-6.10)
[2021-02-12 08:31] LABS: BLOOD UREA NITROGEN 30 MG/DL (7-18); CALCIUM LEVEL 9.3 MG/DL (8.8-10.2); CARBON DIOXIDE LEVEL 38 MEQ/L (21-32); CHLORIDE LEVEL 96 MEQ/L (98-107); CREATININE FOR GFR 0.76 MG/DL (0.70-1.30); GLOMERULAR FILTRATION RATE > 60.0 (>35); GLUCOSE, FASTING 145 MG/DL (70-100); POTASSIUM SERUM 3.7 MEQ/L (3.5-5.1); SODIUM LEVEL 139 MEQ/L (136-145)
[2021-02-12 08:44] LABS: WHITE BLOOD COUNT 12.7 10^3/uL (4.0-10.0)
[2021-02-12] MEDS: BISACODYL 10 MG SUPP PR SCH ×2 (09:00→21:08)
[2021-02-12] MEDS: APIXABAN 5 MG TAB (ELIQUIS) PEG SCH ×2 (09:54→21:07)
[2021-02-12] MEDS: ACETAMINOPHEN 500 MG TAB PEG SCH ×3 (09:55→21:08)
[2021-02-12] MEDS: OLANZapine 5 MG TAB PEG SCH (09:55)
[2021-02-12] MEDS ORDERED: BISACODYL 10 MG SUPP PR ONE (10:05)
[2021-02-12 14:00] VITALS: BP 106/64
[2021-02-12 22:00] VITALS: BP 104/65
[2021-02-13 06:09] VITALS: BP 110/64
[2021-02-13] MEDS: LEVALBUTEROL 1.25 MG/0.5 ML CONCENTRATE NEB INH SCH ×2 (07:05→11:02)
[2021-02-13] MEDS ORDERED: MOM 30ML SUSPENSION UDC PO SCH (09:00)
[2021-02-13] MEDS ORDERED: METO1TAB87 PO (09:58)
[2021-02-13] MEDS ORDERED: METO1TAB87 PEG (09:59)
[2021-02-13] MEDS: ACETAMINOPHEN 500 MG TAB PEG SCH (10:44)
[2021-02-13] MEDS: APIXABAN 5 MG TAB (ELIQUIS) PEG SCH (10:44)
[2021-02-13] MEDS: OLANZapine 5 MG TAB PEG SCH (10:45)
[2021-02-13] MEDS: BISACODYL 10 MG SUPP PR SCH (10:45)
--- NOTE | 2021-02-13 11:57 | IPNPDOC ---
Subjective Date Seen The patient was seen on 02/13/21. Subjective Chief Complaint/HPI No issues overnight. Had 2 bowel movements. Patient is going to be discharged to [facility] today. For full discharge summary look at the discharge note from 02/11/2021 Objective Physical Examination General Exam: Positive: Alert, Cooperative, No Acute Distress Eye Exam: Positive: PERRLA, Conjunctiva & lids normal ENT Exam: Positive: Atraumatic, Tongue Midline Neck Exam: Positive: Supple; Negative: JVD, thyromegaly Chest Exam: Positive: Clear to auscultation, Normal air movement Heart Exam: Positive: Rate Normal, Irregular Rhythm, Normal S1, Normal S2, Murmurs (Soft systolic murmur at the aortic area); Negative: Rubs Abdomen Exam: Positive: Normal bowel sounds, Soft, Other (PEG tube in place); Negative: Tenderness Extremity Exam: Negative: Clubbing, Cyanosis, Edema Assessment /Plan Assessment This is an 80-year-old male, [facility] resident, history of atrial fibrillation, currently sinus rhythm, osteoarthritis, prostate cancer with chronic indwelling Mcdonald catheter, hypertension, hyperlipidemia and dementia, with questionable "pancreas removed" admitted January 31, 2021 to February 03, 2021 for aspiration pneumonia and acute respiratory failure treated with IV Zosyn and vancomycin and transitioned to Avelox as outpatient and discharged back to [facility], presents back to ED on 02/04/2021 with worsening respiratory distress and shortness of breath, found to have worsening on the chest-ray, admitted for recurrent aspiration. Recurrent aspiration pneumonia. This is the patient's second admission for aspiration pneumonia Finished course of meropenem s/p Feeding tube placement on 02/09/2021 Dysphagia In the setting of prior CVA and dementia Laryngeal penetration on swallow evaluation Feeding tube placement done Tolerating tube feeding with Jevity at the rate of 60 cc/h History of cva/chronic atrial fibrillation. Rate controlled on no medications at this time. On discharge will resume metoprolol at low-dose On Eliquis History of prostate cancer with chronic indwelling Mcdonald catheter. (COPD) with chronic hypoxic respiratory failure No exacerbation at this time Continue levalbuterol nebulizers Using 2-3liters home oxygen. Hyperlipidemia. Chronic. Hypertension. Patient's blood pressure has been low normal in hospital not needing any blood pressure medications Metoprolol dose has been reduced from 50 twice daily to 12.5 twice daily Dementia HCP is the patient's son. Pt is medically incompetent to make medical decisions. Plan/VTE VTE Prophylaxis Ordered?: Yes VS, I&O, 24H, Fishbone Vital Signs/I&O Vital Signs Date Time Temp Pulse Resp B/P (MAP) Pulse Ox O2 Delivery O2 Flow Rate FiO2 02/13/21 06:09 98.0 71 16 110/64 (79) 93 Nasal Cannula 2.0 I&O- Last 24 Hours up to 6 AM 02/13/21 06:00 Intake Total 1500 ml Output Total 650 ml Balance 850 ml Laboratory Data 24H LABS Laboratory Tests 2 02/12/21 12:08: Bedside Glucose (Misc Panel) 113H 02/12/21 18:31: Bedside Glucose (Misc Panel) 120H 02/13/21 01:01: Bedside Glucose (Misc Panel) 134H 02/13/21 06:04: Bedside Glucose (Misc Panel) 149H 02/13/21 10:01: Coronavirus (COVID-19)(PCR) NEGATIVE Microbiology Microbiology 02/04/21 Blood Culture - Final, Complete NO GROWTH AFTER 5 DAYS 02/04/21 Blood Culture - Final, Complete NO GROWTH AFTER 5 DAYS 02/04/21 Respiratory Virus Panel (PCR) ([facility]) - Final, Complete IVANIA NOLEN MD Feb 13, 2021 11:57
== END 2021-02-13 12:05 | DRG 178 ==
LOC: M ED 15:25 → EDBD 15:25 → EEVIPCON 17:20 → M ED INP 17:20 → CANRESERV 18:16 → ENRESERV 18:16 → ENRESERVTM 19:42 → ENRESERVDT 19:42 → M PCU 20:30 → M MS5PR 02-05 18:55
PROVIDERS: ADMIT General Practice; ATTEND Internal Medicine Nephrology
PROC: 0DH64UZ Insertion of Feeding Device into Stomach, Percutaneous Endoscopic Approach (ICD-10-PCS; principal; 2021-02-09 13:30)
DX: J69.0 Pneumonitis due to inhalation of food and vomit (principal); J96.11 Chronic respiratory failure with hypoxia; E87.2 Acidosis; I48.0 Paroxysmal atrial fibrillation; E87.5 Hyperkalemia; R13.10 Dysphagia, unspecified; M19.90 Unspecified osteoarthritis, unspecified site; C61 Malignant neoplasm of prostate; I10 Essential (primary) hypertension; E78.5 Hyperlipidemia, unspecified; F03.90 Unspecified dementia, unspecified severity, without behavioral disturbance, psychotic disturbance, mood disturbance, and anxiety; J44.9 Chronic obstructive pulmonary disease, unspecified; Z79.899 Other long term (current) drug therapy; Z86.73 Personal history of transient ischemic attack (TIA), and cerebral infarction without residual deficits; Z87.891 Personal history of nicotine dependence

== ENCOUNTER → 2021-02-04 | Outpatient (REF) | payer MEDICARE, MEDICAID ==
[~2021-02-04] MED LIST changes: -ACET-683 PEG; -BACITAB PEG; -ELIQ5TAB PEG; -ENSU1LIQ36 PO; -ESOM1CAP5 PO; -GNPLIQ18 PO; -IPRA0.00 NEB; -LEVA0.636 INH; -METO1TAB87 PEG; -METO1TAB87 PO; -MILKSUS3 PEG; -MOM30SS PO; -OLAN1TAB16 PEG; -SENN-23 PEG; -SENN1TAB41 PO; -[UNRECOGNIZED DRUG - CODE] PEG
[2021-02-04 15:26] LABS: HEMATOCRIT 39.8 % (42.0-52.0); HEMOGLOBIN 11.9 g/dl (13.5-17.5); MEAN CORPUSCULAR HEMOGLOBIN 30.7 pg (27.0-33.0); MEAN CORPUSCULAR HGB CONC 29.9 g/dl (32.0-36.5); MEAN CORPUSCULAR VOLUME 102.8 fl (80.0-96.0); PLATELET COUNT, AUTOMATED 809 10^3/uL (150-450); RED BLOOD COUNT 3.87 10^6/uL (4.30-6.10); WHITE BLOOD COUNT 24.2 10^3/uL (4.0-10.0)
[2021-02-04 16:22] LABS: BLOOD UREA NITROGEN 36 MG/DL (7-18); CALCIUM LEVEL 9.3 MG/DL (8.8-10.2); CARBON DIOXIDE LEVEL 27 MEQ/L (21-32); CHLORIDE LEVEL 105 MEQ/L (98-107); CREATININE FOR GFR 0.99 MG/DL (0.70-1.30); GLOMERULAR FILTRATION RATE > 60.0 (>35); GLUCOSE, FASTING 149 MG/DL (70-100); NT-PRO BNP 1689 PG/ML (<450); POTASSIUM SERUM 5.1 MEQ/L (3.5-5.1); SODIUM LEVEL 140 MEQ/L (136-145)
== END ==
PROVIDERS: ATTEND Internal Medicine
DX: J18.9 Pneumonia, unspecified organism (principal)

== ENCOUNTER → 2021-02-17 | Outpatient (REF) | payer MEDICARE, MEDICAID ==
[~2021-02-17] MED LIST changes: +ACET-683 PEG; +ACET1TAB55 PO; +BACITAB PEG; +BACITAB PO; +DULC10SU2 PR; +ELIQ5TAB PEG; +FEVE650S3 PR; +LEVA0.6322 INH; +LEVA1.25 INH; +METO1TAB87 PEG; +METO1TAB87 PO; +MILKSUS3 PEG; +MILKSUS3 PO; +MOXI1TAB PO; +OLAN1TAB16 PEG; +PRED10TA2 PO; +SENN-23 PEG; +SENN-23 PO; +[UNRECOGNIZED DRUG - CODE] PEG
== END ==
PROVIDERS: ATTEND Internal Medicine
DX: Z22.39 Carrier of other specified bacterial diseases (principal); Z79.899 Other long term (current) drug therapy

== ENCOUNTER 2021-02-20 10:48 | Emergency (ER) | payer MEDICARE, MEDICAID ==
[~2021-02-20] VITALS: Ht 167.6 cm; Wt 68.9 kg
[2021-02-20] MEDS ORDERED: GASTROGRAFIN SOLUTION 30ML (Q9963) PO STA (13:23)
[2021-02-20 13:48] VITALS: BP 154/78
--- NOTE | 2021-02-20 14:11 | REP ---
INDICATION: s/p PEG tube replacement. instill gastro to verify placement. COMPARISON: 02/08/2021. TECHNIQUE: AP view pelvis performed following injection of Gastrografin material through a PEG tube. FINDINGS: PEG tube is well positioned in the stomach. Contrast is seen in the stomach and proximal small bowel, with no dilatation. There is no evidence of extraluminal contrast. Multiple phleboliths are seen in the pelvis. There is metallic internal fixation in the proximal femurs bilaterally. IMPRESSION: Patent PEG tube in good position within the stomach. <Electronically signed by Carson Ward > 02/20/21 [id number]
== END 2021-02-20 15:57 | disposition home or self-care (01) ==
LOC: M ED 10:48
DX: K94.23 Gastrostomy malfunction (principal); Z46.59 Encounter for fitting and adjustment of other gastrointestinal appliance and device; I48.91 Unspecified atrial fibrillation; I10 Essential (primary) hypertension; E78.5 Hyperlipidemia, unspecified; Z86.73 Personal history of transient ischemic attack (TIA), and cerebral infarction without residual deficits; Z85.46 Personal history of malignant neoplasm of prostate; Z79.01 Long term (current) use of anticoagulants; Z79.899 Other long term (current) drug therapy
CPT/HCPCS: 74018; 99284; Q9963

== ENCOUNTER → 2021-02-24 | Outpatient (REF) | payer MEDICARE, MEDICAID | PROVIDERS: ATTEND Internal Medicine | DX: N39.0 Urinary tract infection, site not specified (principal) ==

== ENCOUNTER → 2021-03-01 | Outpatient (REF) | payer MEDICARE, MEDICAID ==
[2021-03-01 10:53] LABS: HEMATOCRIT 39.1 % (42.0-52.0); HEMOGLOBIN 11.9 g/dl (13.5-17.5); MEAN CORPUSCULAR HEMOGLOBIN 30.5 pg (27.0-33.0); MEAN CORPUSCULAR HGB CONC 30.4 g/dl (32.0-36.5); MEAN CORPUSCULAR VOLUME 100.3 fl (80.0-96.0); PLATELET COUNT, AUTOMATED 863 10^3/uL (150-450); WHITE BLOOD COUNT 16.1 10^3/uL (4.0-10.0)
== END ==
PROVIDERS: ATTEND Internal Medicine
DX: R31.9 Hematuria, unspecified (principal)

== ENCOUNTER → 2021-03-02 | Outpatient (CLI) | payer MEDICARE, MEDICAID ==
--- NOTE | 2021-03-02 15:40 | REP ---
INDICATION: ASPIRATION. COMPARISON: 02/08/2021. TECHNIQUE: Single portable AP view of the chest was performed. FINDINGS: There is increased dense infiltrate in the left lung base. There are chronic interstitial changes in the right lung which appear stable. The heart and mediastinum are unchanged. IMPRESSION: Increased left base infiltrate. <Electronically signed by Carson Ward > 03/02/21 [id number]
--- NOTE | 2021-03-02 15:42 | REP ---
INDICATION: ASPIRATION. COMPARISON: 02/20/2021. TECHNIQUE: Two AP views of abdomen and pelvis. FINDINGS: There again appears to be a PEG tube with the tip unchanged in position overlying the stomach. There is no evidence of bowel obstruction, no significantly dilated bowel loops are seen. Vascular calcifications are present in the pelvis. There is metallic internal fixation in the proximal femurs bilaterally. Metallic clips overlie the pubic symphysis. IMPRESSION: No acute findings. <Electronically signed by Carson Ward > 03/02/21 [id number]
== END ==
PROVIDERS: ATTEND Internal Medicine
DX: R91.8 Other nonspecific abnormal finding of lung field (principal); R05 Cough; R11.0 Nausea; N39.0 Urinary tract infection, site not specified

== ENCOUNTER → 2021-03-02 | Outpatient (REF) | payer MEDICARE, MEDICAID ==
[2021-03-02 18:08] LABS: BASO # 0.1 10^3/uL (0.0-0.2); BASO % 0.5 % (0.0-1.0); EOS # 0.6 10^3/uL (0.0-0.5); EOS % 3.3 % (0.0-3.0); HEMATOCRIT 39.1 % (42.0-52.0); LYMPH % 29.7 % (24.0-44.0); MEAN CORPUSCULAR HEMOGLOBIN 30.5 pg (27.0-33.0); MEAN CORPUSCULAR HGB CONC 30.7 g/dl (32.0-36.5); MEAN CORPUSCULAR VOLUME 99.5 fl (80.0-96.0); MONO % 11.8 % (2.0-8.0); NEUTROPHILS # 9.1 10^3/uL (1.5-8.5); NEUTROPHILS % 54.1 % (36.0-66.0); PLATELET COUNT, AUTOMATED 868 10^3/uL (150-450); RED BLOOD COUNT 3.93 10^6/uL (4.30-6.10)
[2021-03-02 18:45] LABS: WHITE BLOOD COUNT 16.8 10^3/uL (4.0-10.0)
== END ==
PROVIDERS: ATTEND Internal Medicine
DX: N39.0 Urinary tract infection, site not specified (principal)

== ENCOUNTER 2021-03-30 14:16 | Emergency (ER) | payer MEDICARE, MEDICAID ==
[~2021-03-30] VITALS: Ht 167.6 cm; Wt 73.5 kg
[2021-03-30 15:35] LABS: BASO # 0.1 10^3/uL (0.0-0.2); BASO % 0.4 % (0.0-1.0); EOS # 0.4 10^3/uL (0.0-0.5); EOS % 2.4 % (0.0-3.0); HEMOGLOBIN 12.9 g/dl (13.5-17.5); LYMPH # 3.3 10^3/uL (1.5-5.0); MEAN CORPUSCULAR HEMOGLOBIN 30.1 pg (27.0-33.0); MEAN CORPUSCULAR HGB CONC 30.7 g/dl (32.0-36.5); MEAN CORPUSCULAR VOLUME 98.1 fl (80.0-96.0); MONO # 1.9 10^3/uL (0.0-0.8); MONO % 10.7 % (2.0-8.0); NEUTROPHILS # 12.3 10^3/uL (1.5-8.5); NEUTROPHILS % 67.9 % (36.0-66.0); PLATELET COUNT, AUTOMATED 681 10^3/uL (150-450); RED BLOOD COUNT 4.28 10^6/uL (4.30-6.10); WHITE BLOOD COUNT 18.1 10^3/uL (4.0-10.0)
[2021-03-30 15:56] LABS: BLOOD UREA NITROGEN 27 MG/DL (7-18); CALCIUM LEVEL 9.4 MG/DL (8.8-10.2); CARBON DIOXIDE LEVEL 32 MEQ/L (21-32); CHLORIDE LEVEL 102 MEQ/L (98-107); CREATININE FOR GFR 0.82 MG/DL (0.70-1.30); GLOMERULAR FILTRATION RATE > 60.0 (>35); GLUCOSE, FASTING 128 MG/DL (70-100); POTASSIUM SERUM 4.8 MEQ/L (3.5-5.1); SODIUM LEVEL 139 MEQ/L (136-145)
--- NOTE | 2021-03-30 16:00 | REP ---
INDICATION: SOB. COMPARISON: Multiple the latest 03/02/2021 also portable TECHNIQUE: Portable FINDINGS: The technique utilized in obtaining the radiograph has magnified the cardiac silhouette and attenuated the interstitial markings. The cardiomediastinal silhouette appears unchanged. There is interstitial fibrosis. The left basilar opacity has improved. There are no new abnormal opacities. There is no change in the osseous structures. IMPRESSION: Chronic interstitial fibrotic changes suspected. Correlate clinically to rule out the possibility of acute interstitial edema superimposed upon chronic change. <Electronically signed by Abelardo Shin > 03/30/21 [id number]
[2021-03-30] MEDS ORDERED: METO1TAB87 PO (16:11)
[2021-03-30] MEDS ORDERED: ELIQ5TAB PO (16:11)
[2021-03-30] MEDS ORDERED: IPRA0.00 NEB (16:11)
[2021-03-30] MEDS ORDERED: ESOM1CAP5 PO (16:11)
[2021-03-30] MEDS ORDERED: SENN1TAB41 PO (16:11)
[2021-03-30] MEDS ORDERED: BACITAB PO (16:11)
[2021-03-30] MEDS ORDERED: MILKSUS3 PO (16:11)
[2021-03-30] MEDS ORDERED: GNPLIQ18 PO (16:11)
[2021-03-30] MEDS ORDERED: ENSU1LIQ36 PO (16:11)
[2021-03-30] MEDS ORDERED: OLAN1TAB16 PO (16:11)
[2021-03-30] MEDS ORDERED: ACET-683 PO (16:13)
[2021-03-30] MEDS ORDERED: HOME MED LIST COMPLETE! XX SCH (16:15)
[2021-03-30 16:56] LABS: NT-PRO BNP 866 PG/ML (<450)
[2021-03-30] MEDS ORDERED: FUROSEMIDE 40MG/4ML VIAL (J1940) IV ONE (17:15)
--- NOTE | 2021-03-30 18:17 | REPVR ---
PROCEDURE INFORMATION: Exam: CT Chest Without Contrast; Diagnostic Exam date and time: 03/30/2021 5:37 PM Age: 80 years old Clinical indication: Other: Aspiration pneumonia TECHNIQUE: Imaging protocol: Diagnostic computed tomography of the chest without contrast. 3D rendering (Not supervised by radiologist): MIP and/or 3D reconstructed images were created by the technologist. Radiation optimization: All CT scans at this facility use at least one of these dose optimization techniques: automated exposure control; mA and/or kV adjustment per patient size (includes targeted exams where dose is matched to clinical indication); or iterative reconstruction. COMPARISON: CT ANGIO CHEST 02/06/2021 8:29 AM FINDINGS: Lungs: Bibasilar atelectasis. Bandlike atelectasis right middle lobe. No segmental or lobar infiltrates. Calcifications in the tracheobronchial tree. Pleural spaces: Unremarkable. No pneumothorax. No pleural effusion. Heart: There is mild atherosclerotic calcification of the coronary arteries. Aorta: Ectatic atherosclerotic thoracic aorta. Lymph nodes: Multiple small mediastinal lymph nodes likely postinflammatory. Bones/joints: Old healed fractures left clavicle and left 4th through 11th ribs. The spine demonstrates mild degenerative changes. Soft tissues: Unremarkable. IMPRESSION: No acute findings. No segmental or lobar infiltrates. Electronically signed by: Aashish Keyes On 03/30/2021 18:17:00 PM
[2021-03-30 19:30] VITALS: BP 142/75
[2021-03-31] MEDS ORDERED: FEVE650S3 PR (16:18)
[2021-03-31] MEDS ORDERED: LEVA0.636 INH (16:18)
[2021-03-31] MEDS ORDERED: MOM30SS PO (16:18)
== END 2021-03-30 20:29 | disposition home or self-care (01) ==
LOC: M ED 14:16
DX: I50.22 Chronic systolic (congestive) heart failure (principal); I11.0 Hypertensive heart disease with heart failure; I48.91 Unspecified atrial fibrillation; E78.5 Hyperlipidemia, unspecified; Z86.73 Personal history of transient ischemic attack (TIA), and cerebral infarction without residual deficits; Z79.01 Long term (current) use of anticoagulants; Z79.899 Other long term (current) drug therapy
CPT/HCPCS: 71045; 71250; 80048; 83605; 83880; 85025; 87040; 87798; 96374; 99284; J1940

== ENCOUNTER 2021-03-31 09:18 | Inpatient (IN) | payer MEDICARE, MEDICAID ==
[~2021-03-31] VITALS: Ht 165.1 cm; Wt 68.3 kg
[~2021-03-31 09:18] MED LIST changes: +ENSU1LIQ36 PO; +ESOM1CAP5 PO; +GNPLIQ18 PO; +IPRA0.00 NEB; +SENN1TAB41 PO
--- NOTE | 2021-03-31 10:04 | REP ---
INDICATION: DYSPNEA/COUGH. COMPARISON: Multiple the latest yesterday at 3:42 p.m. TECHNIQUE: Portable FINDINGS: The technique utilized in obtaining the radiograph has magnified the cardiac silhouette and accentuated the interstitial markings. A subtle right lower lobe patchy opacity is now seen superimposed upon chronic interstitial change. There is new slight right CP angle blunting as well. The cardiomediastinal silhouette is unchanged. There is no change in the osseous structures. IMPRESSION: New right lower lobe opacity and suspected possible small right pleural effusion. This is seen superimposed upon chronic interstitial change. Consider PA and lateral views of the chest. <Electronically signed by Abelardo Shin > 03/31/21 [id number]
[2021-03-31 10:17] LABS: VENOUS HCO3 29.5 MEQ/L (23.0-27.0); VENOUS O2 SATURATION 98.3 % (60.0-80.0); VENOUS PARTIAL PRESSURE CO2 38.9 mmHg (38.0-50.0); VENOUS PARTIAL PRESSURE O2 113.4 mmHg (30.0-50.0); VENOUS PH 7.498 UNITS (7.330-7.430); VENOUS STANDARD HCO3 29.9 MEQ/L; VENOUS TOTAL CO2 30.7 MEQ/L (24.0-28.0)
[2021-03-31 10:20] LABS: BASO # 0.1 10^3/uL (0.0-0.2); BASO % 0.3 % (0.0-1.0); HEMOGLOBIN 12.8 g/dl (13.5-17.5); LYMPH # 2.3 10^3/uL (1.5-5.0); LYMPH % 8.7 % (24.0-44.0); MEAN CORPUSCULAR HEMOGLOBIN 29.8 pg (27.0-33.0); MEAN CORPUSCULAR HGB CONC 31.2 g/dl (32.0-36.5); MEAN CORPUSCULAR VOLUME 95.3 fl (80.0-96.0); MONO # 3.3 10^3/uL (0.0-0.8); MONO % 12.3 % (2.0-8.0); NEUTROPHILS # 20.9 10^3/uL (1.5-8.5); NEUTROPHILS % 77.8 % (36.0-66.0); PLATELET COUNT, AUTOMATED 733 10^3/uL (150-450); WHITE BLOOD COUNT 26.8 10^3/uL (4.0-10.0)
[2021-03-31] MEDS ORDERED: cefTRIAXone SOD 2 GM in D5W MINI-BAG PLUS 50 ML IV ONE (10:55)
[2021-03-31] MEDS ORDERED: AZITHROMYCIN INJ 500 MG, VIAL MATE ADAPTER 1 EACH in NS 250 ML IV ONE (10:55)
[2021-03-31 10:57] LABS: ALBUMIN 3.2 GM/DL (3.2-5.2); ALT/SGPT 27 U/L (12-78); BILIRUBIN,DIRECT 0.1 MG/DL (0.0-0.2); BILIRUBIN,TOTAL 0.3 MG/DL (0.2-1.0); BLOOD UREA NITROGEN 36 MG/DL (7-18); CALCIUM LEVEL 9.7 MG/DL (8.8-10.2); CARBON DIOXIDE LEVEL 30 MEQ/L (21-32); CHLORIDE LEVEL 102 MEQ/L (98-107); CK-MB VALUE MASS < 1.0 NG/ML (<3.6); CPK CREATINE PHOSPHOKINASE 35 U/L (39-308); CREATININE FOR GFR 0.97 MG/DL (0.70-1.30); GLOMERULAR FILTRATION RATE > 60.0 (>35); GLUCOSE, FASTING 165 MG/DL (70-100); MB/CK RELATIVE INDEX 2.86 (< OR =4); NT-PRO BNP 1386 PG/ML (<450); POTASSIUM SERUM 4.5 MEQ/L (3.5-5.1); SODIUM LEVEL 140 MEQ/L (136-145); TOTAL PROTEIN 8.3 GM/DL (6.4-8.2); TROPONIN I < 0.02 NG/ML (< 0.10)
[2021-03-31] MEDS ORDERED: NS 1,000 ML IV ONE (11:00)
[2021-03-31] MEDS ORDERED: NS 500 ML IV ONE (11:30)
--- NOTE | 2021-03-31 12:49 | HPEPDOC ---
[facility] Medical History & Physical Date of Admission Mar 31, 2021 Date of Service: Mar 31, 2021 History and Physical CHIEF COMPLAINT: SOB HISTORY OF PRESENT ILLNESS: 80-year-old male, resident of [facility], sent to emergency department for 2-day history of worsening shortness of breath. He was also noted to have an episode of vomiting this morning. Patient is a poor historian secondary to his baseline dementia. Patient typically saturates well on room air however at present is requiring 6 L of supplemental oxygen. PAST MEDICAL HISTORY: Recurrent aspiration pneumonia Dysphagia/PEG tube placed Paroxysmal atrial fibrillation osteoarthritis prostate cancer with chronic indwelling Mcdonald catheter hypertension hyperlipidemia dementia COPD with chronic hypoxic respiratory failure? SOCIAL HISTORY: Resides in: [facility] Former smoker. FAMILY HISTORY: Unable to obtain. ALLERGIES: Please see below. REVIEW OF SYSTEMS: Unable to obtain review of systems secondary to baseline dementia. HOME MEDICATIONS: Please see below. PHYSICAL EXAMINATION: Vital Signs: reviewed General: NAD, lying comfortably in bed HEENT: NC/AT, EOMI, poor dentition Neck: supple, no masses Chest: basilar crackles, diminished right lower lobe Heart: +S1S2, tachy, systolic murmur Abd: soft, NT, ND, +BS Ext: trace edema Skin: no rashes MSK: full ROM at large joints Neuro: no gross focal deficits Psych: Alert, awake, oriented only to name LABORATORY DATA: See below. MICROBIOLOGY: Please see below. A/P: 80-year-old male resident of [facility] returns to emergency room for shortness of breath likely secondary to recurrent aspiration pneumonia from dysphagia. #acute hypoxic respiratory failure/pneumonia - Zosyn/Vanco - check MRSA screen - check procal - IS/acapella/supplemental O2 - respiratory panel negative - check sputum culture #Dysphagia/PEG tube placed - continue previous feeds #Paroxysmal atrial fibrillation - beta wing, eliquis #prostate cancer with chronic indwelling Mcdonald catheter #HTN - continue beta wing from home meds #HLD #dementia #DVT prophylaxis - eliquis as above Vital Signs Vital Signs Date Time Temp Pulse Resp B/P (MAP) Pulse Ox O2 Delivery O2 Flow Rate FiO2 03/31/21 11:59 90 28 128/76 (93) 97 Nasal Cannula 6.0 03/31/21 09:45 97.0 Laboratory Data Labs 24H Laboratory Tests 2 03/31/21 09:24: Immature Granulocyte % (Auto) 0.9, Neutrophils (%) (Auto) 77.8H, Lymphocytes (%) (Auto) 8.7L, Monocytes (%) (Auto) 12.3H, Eosinophils (%) (Auto) 0.0, Basophils (%) (Auto) 0.3, Neutrophils # (Auto) 20.9H, Lymphocytes # (Auto) 2.3, Monocytes # (Auto) 3.3H, Eosinophils # (Auto) 0.0, Basophils # (Auto) 0.1, Nucleated Red Blood Cells % (auto) 0.1H, Anion Gap 8, Glomerular Filtration Rate > 60.0, Lactic Acid Level 2.4*H, Calcium Level 9.7, Total Bilirubin 0.3, Direct Bilirubin 0.1, Aspartate Amino Transf (AST/SGOT) 21, Alanine Aminotransferase (ALT/SGPT) 27, Alkaline Phosphatase 91, Total Creatine Kinase 35L, Creatine Kinase MB < 1.0, Creatine Kinase MB Relative Index 2.86, Troponin I < 0.02, ZZ-[id number]-G-Type Natriuretic Peptide 1386H, Total Protein 8.3H, Albumin 3.2, Albumin/Globulin Ratio 0.6 03/31/21 10:03: Blood Gas Bicarbonate Standard 29.9, Venous Blood pH 7.498H, Venous Blood Partial Pressure CO2 38.9, Venous Blood Partial Pressure O2 113.4H, Venous Blood Total Carbon Dioxide 30.7H, Venous Blood HCO3 29.5H, Venous Blood Oxygen Saturation 98.3H, Venous Blood Base Excess 6.0H 03/31/21 11:27: Procalcitonin 0.11 CBC/BMP Laboratory Tests 03/31/21 09:24 Microbiology Microbiology 03/31/21 Blood Culture, Received Pending 03/31/21 Blood Culture, Received Pending 03/31/21 Respiratory Virus Panel (PCR) (KESHAWN) - Final, Complete Home Medications Scheduled Acetaminophen (Acetaminophen) 500 Mg Tablet, 500 MG PO BID Apixaban (Eliquis) 5 Mg Tablet, 5 MG PO BID Esomeprazole Magnesium (Esomeprazole Magnesium) 40 Mg Capsule.dr, 40 MG PO BID Guaifenesin/Dextromethorphan (Tussin Dm Syrup) 118 Ml Syrup, 20 ML PO TID L.acidoph/L.bulg/B.bif/S.therm (Bacid Caplet) 1 Each Tablet, 1 TAB PO DAILY Lactose-Reduced Food (Ensure Enlive) 237 Ml Liquid, 120 ML PO BID Levalbuterol HCl (Levalbuterol HCl) 0.63 Mg/3 Ml Vial.neb, 0.63 MG INH QID 0000, 0600, 1200, 1800 Metoprolol Tartrate (Metoprolol Tartrate) 25 Mg Tablet, 12.5 MG PO BID Milk Of Magnesia (Milk of Magnesia) 2,400 Mg/10 Ml Oral.susp, 30 ML PO DAILY Olanzapine (Olanzapine) 5 Mg Tablet, 5 MG PO DAILY Sennosides/Docusate Sodium (Senna-S Tablet) 1 Each Tablet, 1 TAB PO DAILY Scheduled PRN Acetaminophen (Acetaminophen) 325 Mg Tablet, 650 MG PO Q4H PRN for MILD PAIN (PS 1-4) Acetaminophen (Feverall) 650 Mg Supp.rect, 650 MG [place] Q4H PRN for PAIN LEVEL 4-7 Bisacodyl (Dulcolax) 10 Mg Supp.rect, 10 MG [place] DAILY PRN for CONSTIPATION Levalbuterol HCl (Levalbuterol HCl) 0.63 Mg/3 Ml Vial.neb, 0.63 MG INH Q2H PRN for COPD Magnesium Hydroxide (Milk of Magnesia) 400 Mg/5 Ml Oral.susp, 30 ML PO DAILY PRN for CONSTIPATION Sodium Phosphate,Rich-Dibasic (Enema) 133 Ml Enema, 1 ELOD[place] DAILY PRN for CONSTIPATION Allergies Coded Allergies: No Known Drug Allergies (Verified Allergy, Unknown, 01/31/21) A-FIB/CHADSVASC A-FIB History Current/History of A-Fib/PAF?: Yes Current PO Anticoag Therapy: Yes MATT DILL MD Mar 31, 2021 12:49
[2021-03-31] MEDS ORDERED: LEVA0.636 INH (16:18)
[2021-03-31] MEDS ORDERED: FEVE650S3 PR (16:18)
[2021-03-31] MEDS ORDERED: MOM30SS PO (16:18)
[2021-03-31] MEDS ORDERED: HOME MED LIST COMPLETE! XX SCH (16:40)
[2021-03-31 16:45] VITALS: BP 179/83
[2021-03-31 17:00] VITALS: O2SAT 95
[2021-03-31] MEDS: PIPERACILLIN/TAZOBACTAM SOD 4.5 GM in D5W MINI-BAG PLUS 50 ML IV SCH (17:46)
[2021-03-31] MEDS: FUROSEMIDE 40MG/4ML VIAL (J1940) IV SCH (17:46)
[2021-03-31] MEDS ORDERED: SLF 3 ML SYR IV PRN (17:55)
[2021-03-31 20:00] VITALS: BP 144/87
[2021-03-31] MEDS: SLF 3 ML SYR IV SCH (22:10)
[2021-04-01] VITALS (15 sets, daily range): BP systolic 121–192; BP diastolic 60–100; O2SAT 91–97
[2021-04-01] MEDS ORDERED: UNRESOLVED CLARIFICATION ENTRY XX SCH (00:01)
[2021-04-01] MEDS: PIPERACILLIN/TAZOBACTAM SOD 4.5 GM in D5W MINI-BAG PLUS 50 ML IV SCH ×5 (00:34→23:26)
[2021-04-01] MEDS ORDERED: HEPARIN SOD (PORCINE) 5000UNITS/ML 1ML VIAL/SYRINGE SQ SCH (01:15)
[2021-04-01] MEDS ORDERED: FUROSEMIDE 20MG/2ML VIAL (J1940) IV ONE (02:15)
[2021-04-01] MEDS: SLF 3 ML SYR IV SCH ×3 (05:43→22:00)
[2021-04-01 06:21] LABS: HEMATOCRIT 38.5 % (42.0-52.0); HEMOGLOBIN 11.7 g/dl (13.5-17.5); MEAN CORPUSCULAR HEMOGLOBIN 29.6 pg (27.0-33.0); MEAN CORPUSCULAR HGB CONC 30.4 g/dl (32.0-36.5); MEAN CORPUSCULAR VOLUME 97.5 fl (80.0-96.0); PLATELET COUNT, AUTOMATED 653 10^3/uL (150-450); RED BLOOD COUNT 3.95 10^6/uL (4.30-6.10); WHITE BLOOD COUNT 23.6 10^3/uL (4.0-10.0)
[2021-04-01 06:28] LABS: ALBUMIN 2.8 GM/DL (3.2-5.2); ALT/SGPT 28 U/L (12-78); BILIRUBIN,TOTAL 0.2 MG/DL (0.2-1.0); BLOOD UREA NITROGEN 36 MG/DL (7-18); CALCIUM LEVEL 8.9 MG/DL (8.8-10.2); CARBON DIOXIDE LEVEL 35 MEQ/L (21-32); CHLORIDE LEVEL 100 MEQ/L (98-107); CREATININE FOR GFR 0.94 MG/DL (0.70-1.30); GLOMERULAR FILTRATION RATE > 60.0 (>35); GLUCOSE, FASTING 140 MG/DL (70-100); MAGNESIUM LEVEL 2.3 MG/DL (1.8-2.4); POTASSIUM SERUM 4.4 MEQ/L (3.5-5.1); SODIUM LEVEL 142 MEQ/L (136-145); TOTAL PROTEIN 7.7 GM/DL (6.4-8.2)
[2021-04-01] MEDS ORDERED: METOPROLOL 5 MG/5 ML VIAL IV STA (08:56)
[2021-04-01] MEDS ORDERED: METOPROLOL TART 12.5 MG PER 1/2 TAB PO SCH (09:00)
[2021-04-01] MEDS ORDERED: APIXABAN 5 MG TAB (ELIQUIS) PO SCH (09:00)
[2021-04-01] MEDS ORDERED: guaiFENesin DM LIQ 10ML UD PO SCH (09:00)
[2021-04-01] MEDS ORDERED: SENOKOT S TAB PO SCH (09:00)
[2021-04-01] MEDS ORDERED: MOM 30ML SUSPENSION UDC PO SCH (09:00)
[2021-04-01] MEDS ORDERED: OLANZapine 5 MG TAB PO SCH (09:00)
[2021-04-01] MEDS ORDERED: LACTOBACILLUS ACIDOPHILUS CAP (BACID) PO SCH (09:00)
[2021-04-01] MEDS ORDERED: FLEET ENEMA PR PRN (09:15)
[2021-04-01] MEDS ORDERED: BISACODYL 10 MG SUPP PR PRN (09:15)
[2021-04-01] MEDS ORDERED: LEVALBUTEROL 1.25 MG/0.5 ML CONCENTRATE NEB INH PRN (09:15)
--- NOTE | 2021-04-01 09:21 | IPNPDOC ---
Text Note Date of Service The patient was seen on 04/01/21. NOTE Subjective: Patient seen and examined at bedside. No acute overnight events reported. Patient voices no new medical complaints this morning. Objective: Vital Signs: reviewed General: NAD, lying comfortably in bed HEENT: NC/AT, EOMI, poor dentition Neck: supple, no masses Chest: basilar crackles, diminished right lower lobe Heart: +S1S2, tachy, systolic murmur Abd: soft, NT, ND, +BS Ext: trace edema Skin: no rashes MSK: full ROM at large joints Neuro: no gross focal deficits Psych: Alert, awake, oriented only to name LABORATORY DATA: See below. MICROBIOLOGY: Please see below. A/P: 80-year-old male resident of [facility] returns to emergency room for shortness of breath likely secondary to recurrent aspiration pneumonia from dysphagia. #acute hypoxic respiratory failure/pneumonia - Zosyn - check MRSA screen - check procal - IS/acapella/supplemental O2 - respiratory panel negative - check sputum culture - possibly complicated with fluid overload - diurese for now - monitor creatinine #Dysphagia/PEG tube placed - continue previous feeds #Paroxysmal atrial fibrillation - beta wing, eliquis #prostate cancer with chronic indwelling Mcdonald catheter #thrombocytosis - likely reactive - trending down #HTN - continue beta wing from home meds #HLD #dementia #DVT prophylaxis - eliquis as above Disposition: pending clinical improvement, wean O2, swallow evaluation Addendum: Later in morning MAX cart called for respiratory failure, found to be secondary to mucous plugging. Resolved with suctioning. Discussed code status with his [id number] ([phone]), who stated they would like DNR/DNI. Wants to confirm with her (patient's son). Attempted to contact him at work, no answer [phone]. VS,Fishbone, I+O VS, Fishbone, I+O Laboratory Tests 03/31/21 09:24 04/01/21 05:28 Vital Signs Date Time Temp Pulse Resp B/P (MAP) Pulse Ox O2 Delivery O2 Flow Rate FiO2 04/01/21 08:00 98.7 92 16 149/70 (96) 95 Nasal Cannula 6.0 I&O- Last 24 Hours up to 6 AM 04/01/21 06:00 Intake Total 1695 ml Output Total 1750 ml Balance -55 ml MATT DILL MD Apr 01, 2021 09:21
[2021-04-01] MEDS: FUROSEMIDE 40MG/4ML VIAL (J1940) IV SCH ×2 (09:27→17:21)
[2021-04-01] MEDS: guaiFENesin DM LIQ 10ML UD GT SCH ×2 (17:21→20:47)
[2021-04-01] MEDS: METOPROLOL TART 12.5 MG PER 1/2 TAB GT SCH (20:47)
[2021-04-01] MEDS: APIXABAN 5 MG TAB (ELIQUIS) GT SCH (20:47)
[2021-04-02] VITALS (17 sets, daily range): BP systolic 125–162; BP diastolic 67–80; O2SAT 87–95
[2021-04-02] MEDS: SLF 3 ML SYR IV SCH ×3 (05:44→21:00)
[2021-04-02] MEDS: PIPERACILLIN/TAZOBACTAM SOD 4.5 GM in D5W MINI-BAG PLUS 50 ML IV SCH ×3 (05:45→17:01)
[2021-04-02 06:02] LABS: HEMATOCRIT 41.1 % (42.0-52.0); HEMOGLOBIN 12.7 g/dl (13.5-17.5); MEAN CORPUSCULAR HEMOGLOBIN 29.7 pg (27.0-33.0); MEAN CORPUSCULAR HGB CONC 30.9 g/dl (32.0-36.5); MEAN CORPUSCULAR VOLUME 96.3 fl (80.0-96.0); PLATELET COUNT, AUTOMATED 671 10^3/uL (150-450); RED BLOOD COUNT 4.27 10^6/uL (4.30-6.10); WHITE BLOOD COUNT 19.4 10^3/uL (4.0-10.0)
[2021-04-02 06:19] LABS: BLOOD UREA NITROGEN 35 MG/DL (7-18); CARBON DIOXIDE LEVEL 39 MEQ/L (21-32); CHLORIDE LEVEL 96 MEQ/L (98-107); CREATININE FOR GFR 1.04 MG/DL (0.70-1.30); GLOMERULAR FILTRATION RATE > 60.0 (>35); GLUCOSE, FASTING 118 MG/DL (70-100); POTASSIUM SERUM 3.6 MEQ/L (3.5-5.1); SODIUM LEVEL 139 MEQ/L (136-145)
--- NOTE | 2021-04-02 07:24 | ECGEPIP ---
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
[2021-04-02] MEDS: SENOKOT S TAB GT SCH ×2 (09:00→14:36)
[2021-04-02] MEDS: APIXABAN 5 MG TAB (ELIQUIS) GT SCH ×3 (09:00→20:46)
[2021-04-02] MEDS: MOM 30ML SUSPENSION UDC GT SCH ×2 (09:00→14:37)
[2021-04-02] MEDS: METOPROLOL TART 12.5 MG PER 1/2 TAB GT SCH ×3 (09:00→20:47)
[2021-04-02] MEDS ORDERED: OLANZapine ORAL DISINTEGRATING TAB 5MG PO SCH (09:00)
[2021-04-02] MEDS: OLANZapine 5 MG TAB GT SCH ×2 (09:00→14:37)
[2021-04-02] MEDS: guaiFENesin DM LIQ 10ML UD GT SCH ×3 (09:00→20:48)
[2021-04-02] MEDS: LACTOBACILLUS ACIDOPHILUS CAP (BACID) PEG SCH ×2 (09:00→14:36)
[2021-04-02 09:04] LABS: NT-PRO BNP 1985 PG/ML (<450)
[2021-04-02] MEDS: FUROSEMIDE 40MG/4ML VIAL (J1940) IV SCH ×2 (10:01→17:01)
--- NOTE | 2021-04-02 11:27 | IPNPDOC ---
Text Note Date of Service The patient was seen on 04/02/21. NOTE Subjective: Patient seen and examined at bedside. Overnight patient pulled out his PEG tube. Patient voices no new medical complaints this morning. Objective: Vital Signs: reviewed General: NAD, lying comfortably in bed HEENT: NC/AT, EOMI, poor dentition Neck: supple, no masses Chest: basilar crackles, diminished right lower lobe Heart: +S1S2, tachy, systolic murmur Abd: soft, NT, ND, +BS, bandages on abdomen Ext: trace edema, bilateral hand mitts Skin: no rashes MSK: full ROM at large joints Neuro: no gross focal deficits Psych: Alert, awake, oriented only to name LABORATORY DATA: See below. MICROBIOLOGY: Please see below. A/P: 80-year-old male resident of [facility] returns to emergency room for shortness of breath likely secondary to recurrent aspiration pneumonia from dysphagia. #acute hypoxic respiratory failure/pneumonia - Zosyn - check MRSA screen - check procal - IS/acapella/supplemental O2 - respiratory panel negative - check sputum culture - possibly complicated with fluid overload - diurese for now - monitor creatinine #Dysphagia/PEG tube - will need new PEG tube placement - continue previous feeds #Paroxysmal atrial fibrillation - beta wing, eliquis #prostate cancer with chronic indwelling Mcdonald catheter #thrombocytosis - likely reactive - trending down #HTN - continue beta wing from home meds #HLD #dementia #DVT prophylaxis - eliquis as above Disposition: pending clinical improvement, wean O2, needs new PEG tube placement VS,Fishbone, I+O VS, Fishbone, I+O Laboratory Tests 04/02/21 05:27 Vital Signs Date Time Temp Pulse Resp B/P (MAP) Pulse Ox O2 Delivery O2 Flow Rate FiO2 04/02/21 10:00 88 Nasal Cannula 6.0 04/02/21 07:42 98.3 82 26 133/68 (89) I&O- Last 24 Hours up to 6 AM 04/02/21 06:00 Intake Total 610 ml Output Total 2024 ml Balance -1415 ml MATT DILL MD Apr 02, 2021 11:27
[2021-04-02] MEDS ORDERED: METOPROLOL 5 MG/5 ML VIAL IV SCH (12:00)
--- NOTE | 2021-04-02 13:24 | CR ---
CONSULTATION DATE: 04/02/2021 REASON FOR CONSULTATION: Percutaneous endoscopic gastrostomy (PEG) tube replacement. HISTORY OF PRESENT ILLNESS: Patient is an 80-year-old male patient with a history of dementia and dysphagia who initially had PEG tube placed by myself about 6 weeks ago. He came back into the hospital for recurrent aspiration pneumonia. Last night he accidentally pulled out his PEG tube. One of the staff overnight was able to replace a 16-Welsh Mcdonald to keep the passage open, and I was asked to see him this morning for replacement of the tube. He is unable to give me any history currently. He is not responding to any of my questions. MEDICAL HISTORY: 1. Recurrent aspiration pneumonia. 2. Dysphagia. 3. Paroxysmal atrial fibrillation. 4. Osteoarthritis. 5. Prostate cancer. 6. Hypertension. 7. Hyperlipidemia. 8. Dementia. 9. Chronic obstructive pulmonary disease (COPD). SOCIAL HISTORY: Lives in [facility]. FAMILY HISTORY: Unable to obtain. ALLERGIES: None. HOME MEDICATIONS: Please see medical record. REVIEW OF SYSTEMS: Unable to obtain at this time. PHYSICAL EXAMINATION: GENERAL: Patient is awake and alert. VITAL SIGNS: Temperature 98.3, pulse 80, respirations 24, blood pressure 162/80, pulse oximetry 92% on 6 liters nasal cannula. HEENT: Pupils equally round and reactive to light and accommodation. HEART: S1, S2, regular rate and rhythm. LUNGS: Decreased breath sounds bilaterally. ABDOMEN: Soft, nontender, nondistended. There is a 16-Welsh Mcdonald in the left upper quadrant through his gastrostomy site. No signs of any leakage around it. No signs of infection or inflammation. LABORATORY DATA: White count 19.4, hemoglobin 12.7, platelets 671. ASSESSMENT AND PLAN: Patient is an 80-year-old male with dysphagia and PEG tube that was yanked out overnight. Initially he had a 20-Welsh tube placed. I was able to obtain a 20-Welsh tube from the operating room, and after removing the Mcdonald that is currently in place, with gentle pressure I was able to push a 20-Welsh feeding tube back in. Once that was in place, I put 600 mL of saline in the balloon, put the bumper down to 4 cm, and the catheter opened sufficiently and was draining to gravity, confirming proper placement. No problems with replacement. No bleeding and no signs of any pain, thus ending the procedure. Patient continued to resume his feeding as previously scheduled. No need for any imaging to confirm placement at this time. Thank you for consult.
[2021-04-03] VITALS (14 sets, daily range): BP systolic 120–170; BP diastolic 59–84; O2SAT 91–99
[2021-04-03] MEDS: PIPERACILLIN/TAZOBACTAM SOD 4.5 GM in D5W MINI-BAG PLUS 50 ML IV SCH ×4 (05:45→12:33)
[2021-04-03] MEDS: SLF 3 ML SYR IV SCH ×3 (05:46→22:17)
[2021-04-03 08:32] LABS: HEMATOCRIT 40.2 % (42.0-52.0); HEMOGLOBIN 12.6 g/dl (13.5-17.5); MEAN CORPUSCULAR HEMOGLOBIN 29.9 pg (27.0-33.0); MEAN CORPUSCULAR HGB CONC 31.3 g/dl (32.0-36.5); MEAN CORPUSCULAR VOLUME 95.3 fl (80.0-96.0); PLATELET COUNT, AUTOMATED 736 10^3/uL (150-450); RED BLOOD COUNT 4.22 10^6/uL (4.30-6.10); WHITE BLOOD COUNT 15.5 10^3/uL (4.0-10.0)
[2021-04-03] MEDS ORDERED: METOPROLOL TART 12.5 MG PER 1/2 TAB GT SCH (09:00)
[2021-04-03] MEDS: FUROSEMIDE 40MG/4ML VIAL (J1940) IV SCH ×2 (09:53→16:37)
[2021-04-03] MEDS: MOM 30ML SUSPENSION UDC GT SCH (09:53)
[2021-04-03] MEDS: guaiFENesin DM LIQ 10ML UD GT SCH ×3 (09:53→20:23)
[2021-04-03] MEDS: LACTOBACILLUS ACIDOPHILUS CAP (BACID) PEG SCH (09:54)
[2021-04-03] MEDS: SENOKOT S TAB GT SCH (09:54)
[2021-04-03] MEDS: APIXABAN 5 MG TAB (ELIQUIS) GT SCH ×2 (09:54→20:22)
[2021-04-03] MEDS: OLANZapine 5 MG TAB GT SCH (09:54)
[2021-04-03] MEDS: METOPROLOL TART 12.5 MG PER 1/2 TAB GT SCH ×2 (09:59→20:22)
[2021-04-03 10:42] LABS: BLOOD UREA NITROGEN 44 MG/DL (7-18); CALCIUM LEVEL 9.7 MG/DL (8.8-10.2); CARBON DIOXIDE LEVEL 42 MEQ/L (21-32); CHLORIDE LEVEL 97 MEQ/L (98-107); CREATININE FOR GFR 1.08 MG/DL (0.70-1.30); GLOMERULAR FILTRATION RATE > 60.0 (>35); GLUCOSE, FASTING 136 MG/DL (70-100); NT-PRO BNP 795 PG/ML (<450); POTASSIUM SERUM 3.7 MEQ/L (3.5-5.1); SODIUM LEVEL 142 MEQ/L (136-145)
--- NOTE | 2021-04-03 12:35 | IPNPDOC ---
Text Note Date of Service The patient was seen on 04/03/21. NOTE Subjective: Patient seen and examined at bedside. No acute overnight events reported. Objective: Vital Signs: reviewed General: NAD, lying comfortably in bed HEENT: NC/AT, EOMI, poor dentition Neck: supple, no masses Chest: basilar crackles, diminished right lower lobe Heart: +S1S2, tachy, systolic murmur Abd: soft, NT, ND, +BS, PEG tube in place Ext: trace edema, bilateral hand mitts Skin: no rashes Neuro: no obvious gross focal deficits Psych: Alert, awake, oriented only to name LABORATORY DATA: See below. MICROBIOLOGY: Please see below. A/P: 80-year-old male resident of [facility] returns to emergency room for shortness of breath likely secondary to recurrent aspiration pneumonia from dysphagia. #acute hypoxic respiratory failure/pneumonia - leukocytosis improving, - Zosyn - started 03/31 - sputum shows klebsiella, transition to ceftriaxone today - MRSA screen negative - procal low - IS/acapella/supplemental O2 - respiratory panel negative - complicated with fluid overload - BNP trending down - diurese for now - monitor creatinine #Dysphagia/PEG tube - continue previous feeds #Paroxysmal atrial fibrillation - beta wing, eliquis #prostate cancer with chronic indwelling Mcdonald catheter #thrombocytosis - likely reactive #HTN - continue beta wing from home meds #HLD #dementia #DVT prophylaxis - eliquis as above Disposition: pending clinical improvement, wean O2 VS,Fishbone, I+O VS, Fishbone, I+O Laboratory Tests 04/03/21 08:20 04/03/21 09:56 Vital Signs Date Time Temp Pulse Resp B/P (MAP) Pulse Ox O2 Delivery O2 Flow Rate FiO2 04/03/21 09:59 82 138/83 04/03/21 04:00 97.7 20 93 Nasal Cannula 6.0 I&O- Last 24 Hours up to 6 AM 04/03/21 06:00 Intake Total 1170 ml Output Total 1625 ml Balance -455 ml MATT DILL MD Apr 03, 2021 12:35
--- NOTE | 2021-04-03 13:06 | REP ---
INDICATION: sob. COMPARISON: March 31, 2021. TECHNIQUE: Portable upright AP chest radiograph. FINDINGS: Mild cardiomegaly is observed. Old healed rib fractures are noted on the left. An old left clavicle fracture is seen. The aorta is calcific. Atelectasis has improved but not resolved in the right base. Increased markings persist behind the heart in the left base essentially unchanged. IMPRESSION: Improved atelectatic changes right base. Increased interstitial markings left base unchanged. Mildly prominent heart. <Electronically signed by Roberto Bean > 04/03/21 [id number]
[2021-04-03] MEDS: cefTRIAXone SOD 2 GM in D5W MINI-BAG PLUS 50 ML IV SCH (14:47)
[2021-04-04] VITALS (21 sets, daily range): BP systolic 111–162; BP diastolic 65–88; O2SAT 91–98
[2021-04-04] MEDS: SLF 3 ML SYR IV SCH ×3 (05:34→21:11)
[2021-04-04 06:20] LABS: HEMATOCRIT 43.2 % (42.0-52.0); MEAN CORPUSCULAR HEMOGLOBIN 29.3 pg (27.0-33.0); MEAN CORPUSCULAR HGB CONC 30.1 g/dl (32.0-36.5); MEAN CORPUSCULAR VOLUME 97.3 fl (80.0-96.0); PLATELET COUNT, AUTOMATED 722 10^3/uL (150-450); RED BLOOD COUNT 4.44 10^6/uL (4.30-6.10); WHITE BLOOD COUNT 15.3 10^3/uL (4.0-10.0)
[2021-04-04 06:41] LABS: BLOOD UREA NITROGEN 47 MG/DL (7-18); CALCIUM LEVEL 9.8 MG/DL (8.8-10.2); CARBON DIOXIDE LEVEL 42 MEQ/L (21-32); CHLORIDE LEVEL 94 MEQ/L (98-107); CREATININE FOR GFR 1.05 MG/DL (0.70-1.30); GLOMERULAR FILTRATION RATE > 60.0 (>35); GLUCOSE, FASTING 155 MG/DL (70-100); POTASSIUM SERUM 3.6 MEQ/L (3.5-5.1); SODIUM LEVEL 143 MEQ/L (136-145)
[2021-04-04] MEDS: MOM 30ML SUSPENSION UDC GT SCH (09:31)
[2021-04-04] MEDS: guaiFENesin DM LIQ 10ML UD GT SCH ×3 (09:31→21:11)
[2021-04-04] MEDS: LACTOBACILLUS ACIDOPHILUS CAP (BACID) PEG SCH (09:32)
[2021-04-04] MEDS: FUROSEMIDE 40MG/4ML VIAL (J1940) IV SCH ×2 (09:32→16:44)
[2021-04-04] MEDS: SENOKOT S TAB GT SCH (09:32)
[2021-04-04] MEDS: OLANZapine 5 MG TAB GT SCH (09:32)
[2021-04-04] MEDS: METOPROLOL TART 12.5 MG PER 1/2 TAB GT SCH ×2 (09:32→21:10)
[2021-04-04] MEDS: APIXABAN 5 MG TAB (ELIQUIS) GT SCH ×2 (09:33→21:10)
--- NOTE | 2021-04-04 09:51 | IPNPDOC ---
Text Note Date of Service The patient was seen on 04/04/21. NOTE Subjective: Patient seen and examined at bedside. No acute overnight events reported. Objective: Vital Signs: reviewed General: NAD, lying comfortably in bed HEENT: NC/AT, EOMI, poor dentition Neck: supple, no masses Chest: basilar crackles, diminished right lower lobe Heart: +S1S2, tachy, systolic murmur Abd: soft, NT, ND, +BS, PEG tube in place Ext: trace edema, bilateral hand mitts Skin: no rashes Neuro: no obvious gross focal deficits Psych: Alert, awake, oriented only to name LABORATORY DATA: See below. MICROBIOLOGY: Please see below. A/P: 80-year-old male resident of [facility] returns to emergency room for shortness of breath likely secondary to recurrent aspiration pneumonia from dysphagia. #acute hypoxic respiratory failure/pneumonia - leukocytosis improving, - Zosyn - started 03/31, transitioned to ceftriaxone 04/03/21 - MRSA screen negative - procal low - IS/acapella/supplemental O2 - respiratory panel negative - complicated with fluid overload - BNP trending down - diurese for now - monitor creatinine - trending down #Dysphagia/PEG tube - continue previous feeds #Paroxysmal atrial fibrillation - beta wing, eliquis #prostate cancer with chronic indwelling Mcdonald catheter #thrombocytosis - likely reactive #HTN - continue beta wing from home meds #HLD #dementia #DVT prophylaxis - eliquis as above Disposition: pending clinical improvement, wean O2 VS,Fishbone, I+O VS, Fishbone, I+O Laboratory Tests 04/03/21 09:56 04/04/21 05:48 Vital Signs Date Time Temp Pulse Resp B/P (MAP) Pulse Ox O2 Delivery O2 Flow Rate FiO2 04/04/21 09:32 90 162/88 04/04/21 07:32 97.1 18 98 Nasal Cannula 6.0 I&O- Last 24 Hours up to 6 AM 04/04/21 06:00 Intake Total 1420 ml Output Total 700 ml Balance 720 ml MATT DILL MD Apr 04, 2021 09:51
[2021-04-04] MEDS: cefTRIAXone SOD 2 GM in D5W MINI-BAG PLUS 50 ML IV SCH (13:09)
--- NOTE | 2021-04-04 14:59 | REP ---
INDICATION: EVAL DVT. COMPARISON: None. TECHNIQUE: Bilateral lower extremity duplex venous scanning is performed from the groin to the ankle level. FINDINGS: The deep veins are anechoic and fully compressible from the groin to the popliteal fossa in the left and right lower extremity. Color flow imaging is homogeneous. Spectral Doppler interrogation demonstrates intact respiratory variation in flow and normal manual augmentation of flow. There is no evidence of deep vein thrombosis in the femoropopliteal veins. Calf veins are very poorly visualized bilaterally due to edema. IMPRESSION: No evidence of DVT in the femoropopliteal veins. <Electronically signed by Roberto Bean > 04/04/21 [id number]
[2021-04-04 18:42] LABS: MAGNESIUM LEVEL 2.6 MG/DL (1.8-2.4)
[2021-04-05] VITALS (18 sets, daily range): BP systolic 127–180; BP diastolic 67–86; O2SAT 86–97
[2021-04-05 04:29] LABS: HEMOGLOBIN 13.1 g/dl (13.5-17.5); MEAN CORPUSCULAR HEMOGLOBIN 29.1 pg (27.0-33.0); MEAN CORPUSCULAR HGB CONC 29.8 g/dl (32.0-36.5); MEAN CORPUSCULAR VOLUME 97.8 fl (80.0-96.0); PLATELET COUNT, AUTOMATED 734 10^3/uL (150-450); WHITE BLOOD COUNT 13.7 10^3/uL (4.0-10.0)
[2021-04-05 04:58] LABS: BLOOD UREA NITROGEN 58 MG/DL (7-18); CALCIUM LEVEL 9.8 MG/DL (8.8-10.2); CARBON DIOXIDE LEVEL 43 MEQ/L (21-32); CHLORIDE LEVEL 95 MEQ/L (98-107); CREATININE FOR GFR 1.14 MG/DL (0.70-1.30); GLOMERULAR FILTRATION RATE > 60.0 (>35); GLUCOSE, FASTING 198 MG/DL (70-100); SODIUM LEVEL 141 MEQ/L (136-145)
[2021-04-05 05:01] LABS: VENOUS BASE EXCESS 13.9 (-2.0-2.0); VENOUS HCO3 40.6 MEQ/L (23.0-27.0); VENOUS O2 SATURATION 94.9 % (60.0-80.0); VENOUS PARTIAL PRESSURE O2 74.9 mmHg (30.0-50.0); VENOUS PH 7.456 UNITS (7.330-7.430); VENOUS STANDARD HCO3 37.7 MEQ/L; VENOUS TOTAL CO2 42.5 MEQ/L (24.0-28.0)
[2021-04-05 05:36] LABS: CK-MB VALUE MASS < 1.0 NG/ML (<3.6); CPK CREATINE PHOSPHOKINASE 16 U/L (39-308); MAGNESIUM LEVEL 2.9 MG/DL (1.8-2.4); MB/CK RELATIVE INDEX 6.25 (< OR =4); NT-PRO BNP 452 PG/ML (<450); TROPONIN I < 0.02 NG/ML (< 0.10)
[2021-04-05] MEDS: SLF 3 ML SYR IV SCH ×3 (05:49→21:55)
[2021-04-05] MEDS ORDERED: POTASSIUM CHLORIDE 10% LIQ 20 MEQ/15 ML UDC PO ONE (07:30)
[2021-04-05] MEDS: guaiFENesin DM LIQ 10ML UD GT SCH ×3 (07:49→20:08)
[2021-04-05] MEDS: LACTOBACILLUS ACIDOPHILUS CAP (BACID) PEG SCH (07:49)
[2021-04-05] MEDS: METOPROLOL TART 12.5 MG PER 1/2 TAB GT SCH ×2 (07:49→20:10)
[2021-04-05] MEDS: OLANZapine 5 MG TAB GT SCH (07:49)
[2021-04-05] MEDS: MOM 30ML SUSPENSION UDC GT SCH (07:49)
[2021-04-05] MEDS: SENOKOT S TAB GT SCH (08:21)
[2021-04-05] MEDS: APIXABAN 5 MG TAB (ELIQUIS) GT SCH ×2 (08:21→20:08)
--- NOTE | 2021-04-05 09:56 | IPNPDOC ---
Text Note Date of Service The patient was seen on 04/05/21. NOTE Subjective: Patient seen and examined at bedside. No acute overnight events reported. Objective: Vital Signs: reviewed General: NAD, lying comfortably in bed HEENT: NC/AT, EOMI, poor dentition Neck: supple, no masses Chest: scattered wheezes Heart: +S1S2, tachy, systolic murmur Abd: soft, NT, ND, +BS, PEG tube in place Ext: trace edema, bilateral hand mitts Skin: no rashes Neuro: no obvious gross focal deficits Psych: Alert, awake, oriented only to name LABORATORY DATA: See below. MICROBIOLOGY: Please see below. A/P: 80-year-old male resident of [facility] returns to emergency room for shortness of breath likely secondary to recurrent aspiration pneumonia from dysphagia. #acute hypoxic respiratory failure/pneumonia - leukocytosis improving, - Zosyn - started 03/31, transitioned to ceftriaxone 04/03/21 - MRSA screen negative - procal low - IS/acapella/supplemental O2 - respiratory panel negative - complicated with fluid overload - BNP trending down - creatinine trending up, d/c IV lasix #COPD - continue with respiratory treatments - start solumederol today #Dysphagia/PEG tube - continue previous tube feeds #Paroxysmal atrial fibrillation - beta wing, eliquis #CVA - as per chart review - on eliquis #prostate cancer with chronic indwelling Mcdonald catheter #thrombocytosis - likely reactive #HTN - continue beta wing from home meds #HLD #dementia #DVT prophylaxis - eliquis as above Disposition: pending clinical improvement, wean O2 as tolerated VS,Quintenbone, I+O VS, Fishbone, I+O Laboratory Tests 04/05/21 04:17 Vital Signs Date Time Temp Pulse Resp B/P (MAP) Pulse Ox O2 Delivery O2 Flow Rate FiO2 04/05/21 07:58 97.1 83 20 180/86 (117) 94 High Flow Cannula 04/05/21 04:10 5.0 I&O- Last 24 Hours up to 6 AM 04/05/21 06:00 Intake Total 970 ml Output Total 1025 ml Balance -55 ml MATT DILL MD Apr 05, 2021 09:56
[2021-04-05] MEDS: methylPREDNISolone 125MG 2ML VIAL IV SCH ×2 (10:54→23:06)
[2021-04-05] MEDS: cefTRIAXone SOD 2 GM in D5W MINI-BAG PLUS 50 ML IV SCH (12:23)
[2021-04-06] VITALS (16 sets, daily range): BP systolic 115–148; BP diastolic 56–73; O2SAT 91–99
[2021-04-06 05:20] LABS: HEMATOCRIT 43.9 % (42.0-52.0); HEMOGLOBIN 13.4 g/dl (13.5-17.5); MEAN CORPUSCULAR HEMOGLOBIN 29.3 pg (27.0-33.0); MEAN CORPUSCULAR HGB CONC 30.5 g/dl (32.0-36.5); MEAN CORPUSCULAR VOLUME 95.9 fl (80.0-96.0); PLATELET COUNT, AUTOMATED 776 10^3/uL (150-450); RED BLOOD COUNT 4.58 10^6/uL (4.30-6.10); WHITE BLOOD COUNT 12.5 10^3/uL (4.0-10.0)
[2021-04-06] MEDS: SLF 3 ML SYR IV SCH ×3 (05:33→22:00)
[2021-04-06 05:44] LABS: BLOOD UREA NITROGEN 63 MG/DL (7-18); CARBON DIOXIDE LEVEL 40 MEQ/L (21-32); CHLORIDE LEVEL 97 MEQ/L (98-107); CREATININE FOR GFR 1.04 MG/DL (0.70-1.30); GLOMERULAR FILTRATION RATE > 60.0 (>35); GLUCOSE, FASTING 170 MG/DL (70-100); POTASSIUM SERUM 4.5 MEQ/L (3.5-5.1); SODIUM LEVEL 141 MEQ/L (136-145)
[2021-04-06] MEDS: guaiFENesin DM LIQ 10ML UD GT SCH (09:33)
[2021-04-06] MEDS: METOPROLOL TART 12.5 MG PER 1/2 TAB GT SCH ×2 (09:33→20:41)
[2021-04-06] MEDS: LACTOBACILLUS ACIDOPHILUS CAP (BACID) PEG SCH (09:33)
[2021-04-06] MEDS: MOM 30ML SUSPENSION UDC GT SCH (09:34)
[2021-04-06] MEDS: APIXABAN 5 MG TAB (ELIQUIS) GT SCH ×2 (09:34→20:39)
--- NOTE | 2021-04-06 10:09 | IPNPDOC ---
Text Note Date of Service The patient was seen on 04/06/21. NOTE Subjective: Patient seen and examined at bedside. No acute overnight events reported. Objective: Vital Signs: reviewed General: NAD, lying comfortably in bed HEENT: NC/AT, EOMI, poor dentition Neck: supple, no masses Chest: scattered wheezes Heart: +S1S2, tachy, systolic murmur Abd: soft, NT, ND, +BS, PEG tube in place Ext: trace edema, bilateral hand mitts Skin: no rashes Neuro: no obvious gross focal deficits Psych: Alert, awake, oriented only to name LABORATORY DATA: See below. MICROBIOLOGY: Please see below. A/P: 80-year-old male resident of [facility] returns to emergency room for shortness of breath likely secondary to recurrent aspiration pneumonia from dysphagia. #acute hypoxic respiratory failure/pneumonia - leukocytosis improving, - Zosyn - started 03/31, transitioned to ceftriaxone 04/03/21 - MRSA screen negative - procal low - IS/acapella/supplemental O2 - respiratory panel negative #COPD - continue with respiratory treatments - solumederol #Dysphagia/PEG tube - continue previous tube feeds #Paroxysmal atrial fibrillation - beta wing, eliquis #CVA - as per chart review - on eliquis #prostate cancer with chronic indwelling Mcdonald catheter #thrombocytosis - likely reactive #HTN - continue beta wing from home meds #HLD #dementia #DVT prophylaxis - eliquis as above Disposition: pending clinical improvement, wean O2 as tolerated VS,Fishbone, I+O VS, Fishbone, I+O Laboratory Tests 04/06/21 04:51 Vital Signs Date Time Temp Pulse Resp B/P (MAP) Pulse Ox O2 Delivery O2 Flow Rate FiO2 04/06/21 09:33 82 148/73 04/06/21 08:12 5.0 04/06/21 08:00 97.7 20 91 High Flow Cannula I&O- Last 24 Hours up to 6 AM 04/06/21 06:00 Intake Total 900 ml Output Total 575 ml Balance 325 ml MATT DILL MD Apr 06, 2021 10:09
[2021-04-06 10:31] LABS: ABG BASE EXCESS 12.8 (-2.0-2.0); ABG O2 SATURATION 98.5 % (95.0-99.0); ABG PARTIAL PRESSURE O2 120.1 mmHg (75.0-100.0); ABG STANDARD HCO3 36.7 MEQ/L (22.0-26.0); ABG pH (ARTERIAL) 7.423 UNITS (7.350-7.450)
[2021-04-06 10:35] LABS: ABG PARTIAL PRESSURE CO2 62.7 mmHg (35.0-45.0)
--- NOTE | 2021-04-06 10:44 | REP ---
INDICATION: interim eval sob. COMPARISON: 04/03/2021 TECHNIQUE: Portable FINDINGS: The technique utilized in obtaining the radiograph has magnified the cardiac silhouette and accentuated the interstitial markings. The cardiomediastinal silhouette is unchanged. Mild cardiomegaly accentuated by technique is suspected. Once again, the interstitial markings are diffusely increased status quo. No acute patchy parenchymal opacities or pleural effusions have developed. There is no change in the osseous structures. IMPRESSION: No significant change. <Electronically signed by Abelardo Shin > 04/06/21 0589
[2021-04-06] MEDS: methylPREDNISolone 125MG 2ML VIAL IV SCH (11:23)
[2021-04-06] MEDS: OLANZapine 5 MG TAB GT SCH (11:33)
--- NOTE | 2021-04-06 13:31 | CR.PDOC ---
General Date of Consultation: Apr 06, 2021 Consultation REASON FOR CONSULTATION/CHIEF COMPLAINT: Hypoxic respiratory failure HISTORY OF PRESENT ILLNESS: History is obtained from the chart as patient is nonverbal. 80-year-old male who resides in a senior living as a medical history of CVA, poor functional status, recurrent aspiration pneumonia, dysphagia, PEG tube placement, paroxysmal atrial fibrillation, prostate cancer with chronic indw elling Mcdonald catheter, hypertension and chronic hypoxic respiratory failure requiring oxygen 1 to 2 L at senior living was initially sent to the ED for worsening shortness of breath and desaturation. Patient was found with vomit on himself and there was therefore concern for aspiration. He was admitted to the [facility] floor for suspected aspiration pneumonia where he was started on antibiotics. His chest x-ray was concerning for right lower lobe pneumonia. His oxygen requirements have not improved over the past few days this is why pulmonary was consulted. ALLERGIES: Please see below. HOME MEDICATIONS: Please see below. PAST MEDICAL HISTORY: See above PAST SURGICAL HISTORY: PEG tube placement FAMILY HISTORY: Unable to obtain as patient is nonverbal SOCIAL HISTORY: Former smoker per chart REVIEW OF SYSTEMS: Unable to obtain as patient is nonverbal PHYSICAL EXAMINATION: VITAL SIGNS: Please see below. GENERAL APPEARANCE: Resting comfortably sitting in the chair saturation 97% on 5 L nasal cannula. Alert and awake. . HEENT: no thyromegaly, trachea midline, PERRLA. normal mucous membranes . RESPIRATORY: CTA B/L, good air entry. CARDIOVASCULAR: +s1 s2, no murmurs. ABDOMEN: nontender, not distended, +BS EXTREMITIES: no edema or erythema. palpable distal pulses SKIN: no rash, no purpura NEUROLOGICAL: No focal neurological deficits, orientedx3. LABORATORY DATA: Please see below. Labs and Imaging personally reviewed by me. Pertinent imaging: Chest x-ray does not reveal any obvious acute infiltrate. CT chest showing bibasilar atelectasis, no pulmonary embolism. Venous duplex lower extremity negative for DVT. Echo shows mild left ventricular hypertrophy and mild diastolic dysfunction. Pertinent labs: TSH 0.8 ABG 7.4 2/62/120 BNP 795 Procalcitonin 0.11 Sputum culture showing Klebsiella ASSESSMENT: 1. Chronic hypercapnic respiratory failure with hypoxemia suspect this is due to reduced central respiratory drive which may be multifactorial from prior CVA and chronic use of dextromethorphan. He may also have undiagnosed central sleep apnea which can be seen in patients with a history of CVA. Other causes of hypercapnic respiratory failure were assessed and ruled out including hypothyroidism TSH 0.8, CT chest did not reveal any chest wall deformities or severe kyphoscoliosis nor did it show any presence of emphysema or interstitial lung disease. 2. History of CVA and dementia with poor functional and verbal status at baseline 3. History of A. fib on anticoagulation PLAN: * Continue with oxygen therapy to maintain a pulse ox between 89 and 92%. As he is chronically hypercapnic it is not necessary to maintain higher pulse ox. Titrate down oxygen as tolerated. * D/C dextromethorphan * Check phosphorus level as hypophosphatemia can produce respiratory muscle weakness and contribute to hypercapnia * DC steroids and antibiotics as there is no evidence of acute exacerbation of obstructive lung disease or pneumonia * The patient will likely need chronic long-term oxygen therapy * Outpatient sleep study may identify the presence of central sleep apnea and thus a titration study would be warranted to determine if nocturnal NIV would be of benefit * DVT prophylaxis on Eliquis Vital Signs/I&O Vital Signs Date Time Temp Pulse Resp B/P (MAP) Pulse Ox O2 Delivery O2 Flow Rate FiO2 04/06/21 12:00 98.0 71 18 144/66 (92) 97 High Flow Cannula 5.0 I&O- Last 24 Hours up to 6 AM 04/06/21 06:00 Intake Total 900 ml Output Total 575 ml Balance 325 ml Laboratory Data Labs 24H Laboratory Tests 2 04/06/21 04:51: Nucleated Red Blood Cells % (auto) 0.2H, Anion Gap 4L, Glomerular Filtration Rate > 60.0, Calcium Level 10.0 04/06/21 10:19: Blood Gas Bicarbonate Standard 36.7H, Arterial Blood pH 7.423, Arterial Blood Partial Pressure CO2 62.7*H, Arterial Blood Partial Pressure O2 120.1H, Arterial Blood Total CO2 42.0H, Arterial Blood HCO3 40.0H, Arterial Blood Base Excess 12.8H, Arterial Blood Oxygen Saturation 98.5 CBC/BMP Laboratory Tests 04/06/21 04:51 Microbiology Microbiology 03/31/21 Gram Stain - Final, Complete 03/31/21 Sputum Culture - Final, Complete Klebsiella Oxytoca 03/31/21 Blood Culture - Final, Complete NO GROWTH AFTER 5 DAYS 03/31/21 Blood Culture - Final, Complete NO GROWTH AFTER 5 DAYS 03/31/21 Respiratory Virus Panel (PCR) ([facility]) - Final, Complete Allergies Coded Allergies: No Known Drug Allergies (Verified Allergy, Unknown, 01/31/21) Home Medications Scheduled Acetaminophen (Acetaminophen) 500 Mg Tablet, 500 MG PO BID, (Reported) Apixaban (Eliquis) 5 Mg Tablet, 5 MG PO BID, (Reported) Esomeprazole Magnesium (Esomeprazole Magnesium) 40 Mg Capsule.dr, 40 MG PO BID, (Reported) Guaifenesin/Dextromethorphan (Tussin Dm Syrup) 118 Ml Syrup, 20 ML PO TID, (Reported) L.acidoph/L.bulg/B.bif/S.therm (Bacid Caplet) 1 Each Tablet, 1 TAB PO DAILY, (Re ported) Lactose-Reduced Food (Ensure Enlive) 237 Ml Liquid, 120 ML PO BID, (Reported) Levalbuterol HCl (Levalbuterol HCl) 0.63 Mg/3 Ml Vial.neb, 0.63 MG INH QID, (Reported) 0000, 0600, 1200, 1800 Metoprolol Tartrate (Metoprolol Tartrate) 25 Mg Tablet, 12.5 MG PO BID, (Reported) Milk Of Magnesia (Milk of Magnesia) 2,400 Mg/10 Ml Oral.susp, 30 ML PO DAILY, (Reported) Olanzapine (Olanzapine) 5 Mg Tablet, 5 MG PO DAILY, (Reported) Sennosides/Docusate Sodium (Senna-S Tablet) 1 Each Tablet, 1 TAB PO DAILY, (Reported) Scheduled PRN Acetaminophen (Acetaminophen) 325 Mg Tablet, 650 MG PO Q4H PRN for MILD PAIN (PS 1-4), (Reported) Acetaminophen (Feverall) 650 Mg Supp.rect, 650 MG SC Q4H PRN for PAIN LEVEL 4-7, (Reported) Bisacodyl (Dulcolax) 10 Mg Supp.rect, 10 MG SC DAILY PRN for CONSTIPATION, (Reported) Levalbuterol HCl (Levalbuterol HCl) 0.63 Mg/3 Ml Vial.neb, 0.63 MG INH Q2H PRN for COPD, (Reported) Magnesium Hydroxide (Milk of Magnesia) 400 Mg/5 Ml Oral.susp, 30 ML PO DAILY PRN for CONSTIPATION, (Reported) Sodium Phosphate,Page-Dibasic (Enema) 133 Ml Enema, 1 ELODIA SC DAILY PRN for CONSTIPATION, (Reported) HOLLAND VERMA MD Apr 06, 2021 13:31
[2021-04-07] VITALS: BP 127/65
[2021-04-07 04:00] VITALS: BP 163/74
[2021-04-07 05:38] LABS: HEMATOCRIT 43.3 % (42.0-52.0); HEMOGLOBIN 13.3 g/dl (13.5-17.5); MEAN CORPUSCULAR HEMOGLOBIN 29.8 pg (27.0-33.0); MEAN CORPUSCULAR HGB CONC 30.7 g/dl (32.0-36.5); MEAN CORPUSCULAR VOLUME 96.9 fl (80.0-96.0); PLATELET COUNT, AUTOMATED 723 10^3/uL (150-450); RED BLOOD COUNT 4.47 10^6/uL (4.30-6.10); WHITE BLOOD COUNT 14.4 10^3/uL (4.0-10.0)
[2021-04-07 06:11] LABS: BLOOD UREA NITROGEN 65 MG/DL (7-18); CALCIUM LEVEL 9.7 MG/DL (8.8-10.2); CARBON DIOXIDE LEVEL 40 MEQ/L (21-32); CHLORIDE LEVEL 98 MEQ/L (98-107); CREATININE FOR GFR 0.92 MG/DL (0.70-1.30); GLOMERULAR FILTRATION RATE > 60.0 (>35); GLUCOSE, FASTING 117 MG/DL (70-100); POTASSIUM SERUM 4.2 MEQ/L (3.5-5.1); SODIUM LEVEL 143 MEQ/L (136-145)
[2021-04-07] MEDS: SLF 3 ML SYR IV SCH ×3 (06:23→22:01)
[2021-04-07 08:13] VITALS: BP 170/79
--- NOTE | 2021-04-07 09:54 | IPNPDOC ---
Text Note Date of Service The patient was seen on 04/07/21. SUBJECTIVE: Patient seen and examined at bedside this morning. There were no overnight events. He is resting comfortably in bed, he is nonverbal but follows simple commands. He has 95% pulse ox on 2 L nasal cannula. All other ROS are negative except as mentioned above PHYSICAL EXAMINATION: VITAL SIGNS: Please see below. GENERAL APPEARANCE: Alert and awake. . HEENT: no thyromegaly, trachea midline, PERRLA. normal mucous membranes . RESPIRATORY: CTA B/L, good air entry. CARDIOVASCULAR: +s1 s2, no murmurs. ABDOMEN: nontender, not distended, +BS EXTREMITIES: Mild pitting edema bilaterally no erythema. palpable distal pulses SKIN: no rash, no purpura NEUROLOGICAL: No focal neurologic deficits PERTINENT LABS/IMAGING: BNP 452. Procalcitonin 0.11. Sputum culture Klebsiella. ASSESSMENT: 1. Chronic hypercapnic respiratory failure with hypoxemia suspect this is due to reduced central respiratory drive which may be multifactorial from prior CVA and chronic use of dextromethorphan. He may also have undiagnosed sleep apnea which can be seen in patients with a history of CVA. Other causes of hypercapnic respiratory failure were assessed and ruled out including hypothyroidism TSH 0.8, CT chest did not reveal any chest wall deformities or severe kyphoscoliosis nor did it show any presence of emphysema or interstitial lung disease. Normal phosphorus level. 2. History of CVA and dementia with poor functional and verbal status at baseline 3. History of A. fib on anticoagulation PLAN: * Continue with oxygen therapy to maintain a pulse ox between 89 and 92%. As he is chronically hypercapnic it is not necessary to maintain higher pulse ox. Titrate down oxygen as tolerated. * I asked respiratory therapy to perform a NIF maneuver and hyperventilatory ABG to assess for neuromuscular and diaphragmatic weakness. However I suspect patient will not be able to cooperate with instructions. * The patient will likely need chronic long-term oxygen therapy * Outpatient PFTs with muscle forces [MIP/MEP] and upright and supine FVC, these are not done inpatient I spoke with respiratory therapy. Outpatient sleep study may identify the presence of sleep apnea and thus a titration study would be warranted to determine if nocturnal PAP therapy would be of benefit * DVT prophylaxis on Eliquis VS,Fishbone, I+O VS, Fishbone, I+O Laboratory Tests 04/07/21 05:09 Vital Signs Date Time Temp Pulse Resp B/P (MAP) Pulse Ox O2 Delivery O2 Flow Rate FiO2 04/07/21 08:13 97.5 70 18 170/79 (109) 95 High Flow Cannula 2.0 I&O- Last 24 Hours up to 6 AM 04/07/21 06:00 Intake Total 1440 ml Output Total 1225 ml Balance 215 ml HOLLAND VERMA MD Apr 07, 2021 09:54
[2021-04-07] MEDS: MOM 30ML SUSPENSION UDC GT SCH (10:27)
[2021-04-07] MEDS: OLANZapine 5 MG TAB GT SCH (10:28)
[2021-04-07] MEDS: LACTOBACILLUS ACIDOPHILUS CAP (BACID) PEG SCH (10:28)
[2021-04-07] MEDS: METOPROLOL TART 12.5 MG PER 1/2 TAB GT SCH ×2 (10:28→20:25)
[2021-04-07] MEDS: APIXABAN 5 MG TAB (ELIQUIS) GT SCH ×2 (10:28→20:24)
[2021-04-07 12:00] VITALS: BP 146/70
[2021-04-07] MEDS ORDERED: VARIBAR NECTAR 40% w/v 240ML SUSP BTL As Ordered ONE (13:46)
[2021-04-07] MEDS ORDERED: E-Z-PAQUE 96% w/w SUSP 176GM BTL As Ordered ONE (13:46)
[2021-04-07] MEDS ORDERED: VARIBAR PUDDING 40% w/v 230ML TUBE As Ordered ONE (13:46)
--- NOTE | 2021-04-07 16:04 | REP ---
INDICATION: eval for swallow. COMPARISON: None. TECHNIQUE: The procedure was performed by Martha Beal [facility], under the direct supervision of Dr. Bean. The procedure was performed with Veronica Zhang from speech pathology present. 5 ml aliquots of honey thick and nectar thick consistency barium was administered. FINDINGS: No aspiration or penetration was visualized, however a large amount of residual was visualized in the pyriform sinuses. The detailed report of this examination will be provided by speech pathology. IMPRESSION: No aspiration or penetration, a detailed report will be provided by speech pathology. 2.4 minutes of fluoroscopy time was utilized for this procedure. Some fluoroscopic images are performed with last image hold technology. These images require no additional radiation <Electronically signed by Martha Beal > 04/07/21 1450 <Electronically signed by Roberto Bean > 04/07/21 1600
[2021-04-07 16:16] VITALS: BP 134/68
--- NOTE | 2021-04-07 17:46 | IPNPDOC ---
Subjective Date Seen The patient was seen on 04/07/21. Subjective Chief Complaint/HPI Mr. Rojas is an 80-year-old male with paroxysmal atrial fibrillation, dysphagia status post PEG tube placement, and dementia who is here from [facility] for worsening shortness of breath. Patient was seen in the morning. Oxygen requirements at 2 L. He is still on mitts as he may try to take off his oxygen due to his dementia. Objective Physical Examination Eye Exam: Negative: Sclera icteric ENT Exam: Positive: Atraumatic Neck Exam: Positive: Supple Chest Exam: Positive: Diminished Heart Exam: Positive: Rate Normal, Regular Rhythm Abdomen Exam: Positive: Normal bowel sounds, Soft, Other (PEG tube in place) Extremity Exam: Positive: Other (Mitts on hands bilaterally); Negative: Edema Assessment /Plan Assessment Mr. Rojas is an 80-year-old male with paroxysmal atrial fibrillation, dysphagia status post PEG tube placement, and dementia who is here from [facility] for worsening shortness of breath. On admission, patient was thought to have with aspiration pneumonia. Patient was initially on Zosyn, transition to ceftriaxone. Procalcitonin was low. Despite antibiotic course, patient still was on 2 L. Pulmonary was consulted. Patient may need to be on oxygen lifelong. Plan/VTE VTE Prophylaxis Ordered?: Yes Plan 1. Acute hypoxic respiratory failure On admission was on 6 L Currently on 2 L Pulmonary consulted, recommendations appreciated Patient may have MARIA TERESA. He may benefit from sleep study, if he is able to follow instructions 2. Aspiration pneumonia Patient was thought to have aspiration pneumonia with consolidation on the right lower lobe on admission Patient completed a total of 7 days of antibiotics with a combination of Zosyn and ceftriaxone Procalcitonin low No need for antibiotics at this time 3. Suspected COPD/Asthma Patient not on controller medication for COPD Continue levalbuterol Patient will need a spirometry outpatient 4. Dysphagia S/p post PEG tube placement Continue tube feeds 5. Paroxysmal atrial fibrillation Continue Eliquis Continue metoprolol tartrate 6. History of CVA Continue Eliquis 7. Prostate cancer Patient has chronic indwelling Mcdonald 8. Dementia Patient is a resident of [facility] Continue olanzapine 9. DVT prophylaxis Continue Eliquis Disposition: Pending clinical improvement. If the patient does need lifelong oxygen, may be difficult with his dementia. Currently has mitts on. We will see if we are able to wean off of oxygen. On our computer system, patient does not have person we can contact. VS, I&O, 24H, Fishbone Vital Signs/I&O Vital Signs Date Time Temp Pulse Resp B/P (MAP) Pulse Ox O2 Delivery O2 Flow Rate FiO2 04/07/21 16:16 97.2 84 22 134/68 (90) 91 High Flow Cannula 2.0 I&O- Last 24 Hours up to 6 AM 04/07/21 06:00 Intake Total 1440 ml Output Total 1225 ml Balance 215 ml Laboratory Data 24H LABS Laboratory Tests 2 04/07/21 05:09: Nucleated Red Blood Cells % (auto) 0.2H, Anion Gap 5L, Glomerular Filtration Rate > 60.0, Calcium Level 9.7, Phosphorus Level 4.0, Albumin 3.0L CBC/BMP Laboratory Tests 04/07/21 05:09 Microbiology Microbiology 03/31/21 Gram Stain - Final, Complete 03/31/21 Sputum Culture - Final, Complete Klebsiella Oxytoca 03/31/21 Blood Culture - Final, Complete NO GROWTH AFTER 5 DAYS 03/31/21 Blood Culture - Final, Complete NO GROWTH AFTER 5 DAYS 03/31/21 Respiratory Virus Panel (PCR) ([facility]) - Final, Complete SILVER CAICEDO DO Apr 07, 2021 17:46
[2021-04-07 20:00] VITALS: BP 172/80
[2021-04-08] VITALS (7 sets, daily range): BP systolic 132–172; BP diastolic 69–85; O2SAT 93
[2021-04-08] MEDS: SLF 3 ML SYR IV SCH ×3 (05:44→20:27)
[2021-04-08 06:08] LABS: HEMATOCRIT 44.6 % (42.0-52.0); HEMOGLOBIN 13.5 g/dl (13.5-17.5); MEAN CORPUSCULAR HEMOGLOBIN 29.4 pg (27.0-33.0); MEAN CORPUSCULAR HGB CONC 30.3 g/dl (32.0-36.5); MEAN CORPUSCULAR VOLUME 97.2 fl (80.0-96.0); PLATELET COUNT, AUTOMATED 724 10^3/uL (150-450); RED BLOOD COUNT 4.59 10^6/uL (4.30-6.10); WHITE BLOOD COUNT 13.6 10^3/uL (4.0-10.0)
[2021-04-08 06:35] LABS: BLOOD UREA NITROGEN 59 MG/DL (7-18); CALCIUM LEVEL 9.9 MG/DL (8.8-10.2); CARBON DIOXIDE LEVEL 38 MEQ/L (21-32); CHLORIDE LEVEL 101 MEQ/L (98-107); CREATININE FOR GFR 0.83 MG/DL (0.70-1.30); GLOMERULAR FILTRATION RATE > 60.0 (>35); GLUCOSE, FASTING 189 MG/DL (70-100); SODIUM LEVEL 142 MEQ/L (136-145)
[2021-04-08] MEDS: APIXABAN 5 MG TAB (ELIQUIS) GT SCH ×2 (10:20→20:26)
[2021-04-08] MEDS: MOM 30ML SUSPENSION UDC GT SCH (10:20)
[2021-04-08] MEDS: LACTOBACILLUS ACIDOPHILUS CAP (BACID) PEG SCH (10:20)
[2021-04-08] MEDS: METOPROLOL TART 12.5 MG PER 1/2 TAB GT SCH ×2 (10:21→20:26)
[2021-04-08] MEDS: OLANZapine 5 MG TAB GT SCH (10:21)
--- NOTE | 2021-04-08 10:55 | IPNPDOC ---
Text Note Date of Service The patient was seen on 04/08/21. SUBJECTIVE: Patient seen and examined at bedside. There were no overnight events. Patient is currently on 2 L nasal cannula saturating 94%. He was unable to follow instructions to perform PFTs yesterday. He is status post speech and swallow assessment with no signs of aspiration or laryngeal penetration. Currently he is working with physical therapy to get him up from the bed to the chair. All other ROS are negative except as mentioned above PHYSICAL EXAMINATION: VITAL SIGNS: Please see below. GENERAL APPEARANCE: Alert and awake. HEENT: no thyromegaly, trachea midline, PERRLA. normal mucous membranes RESPIRATORY: Faint crackles bilaterally good air entry. CARDIOVASCULAR: +s1 s2, no murmurs. ABDOMEN: nontender, not distended, +BS EXTREMITIES: no edema or erythema. palpable distal pulses SKIN: no rash, no purpura NEUROLOGICAL: no sensory or motor deficits, orientedx3. PERTINENT LABS/IMAGING: White blood cell count is 13 which is down from yesterday. Sputum culture so show Klebsiella. Barium swallow did not show signs of aspiration or laryngeal penetration. ASSESSMENT: 1. Chronic hypercapnic respiratory failure with hypoxemia suspect this is due to reduced central respiratory drive which may be multifactorial from prior CVA and chronic use of dextromethorphan. His oxygen requirements have improved since dextromethorphan was stopped and patient appears more alert as well. He may also have undiagnosed sleep apnea which can be seen in patients with a history of CVA. Other causes of hypercapnic respiratory failure were assessed and ruled out including hypothyroidism TSH 0.8, CT chest did not reveal any chest wall deformities or severe kyphoscoliosis nor did it show any presence of emphysema or interstitial lung disease. Normal phosphorus level. 2. History of CVA and dementia with poor functional and verbal status at baseline 3. History of A. fib on anticoagulation PLAN: * Continue with oxygen therapy to maintain a pulse ox between 89 and 92%. As he is chronically hypercapnic it is not necessary to maintain higher pulse ox. Titrate down oxygen as tolerated. * Patient is not able to perform PFTs. * The patient will need chronic long-term oxygen therapy * Outpatient sleep study may identify the presence of sleep apnea and thus a titration study would be warranted to determine if nocturnal PAP therapy would be of benefit. * DVT prophylaxis * Pulmonary will signoff. Please recall as needed VS,Fishbone, I+O VS, Fishbone, I+O Laboratory Tests 04/08/21 05:41 Vital Signs Date Time Temp Pulse Resp B/P (MAP) Pulse Ox O2 Delivery O2 Flow Rate FiO2 04/08/21 10:21 92 135/69 04/08/21 07:46 97.9 19 94 Nasal Cannula 2.0 I&O- Last 24 Hours up to 6 AM 04/08/21 06:00 Intake Total 1500 ml Output Total 1300 ml Balance 200 ml HOLLAND VERMA MD Apr 08, 2021 10:55
--- NOTE | 2021-04-08 14:53 | IPNPDOC ---
Subjective Date Seen The patient was seen on 04/08/21. Subjective Chief Complaint/HPI Mr. Rojas is an 80-year-old male with paroxysmal atrial fibrillation, dysphagia status post PEG tube placement, and dementia who is here from [facility] for worsening shortness of breath. Patient was seen this morning without his mitts and nasal cannula still in place. Will discontinue mitts. Otherwise patient denies any chest pain or dyspnea. Objective Physical Examination Eye Exam: Negative: Sclera icteric ENT Exam: Positive: Atraumatic Neck Exam: Positive: Supple Chest Exam: Positive: Diminished Heart Exam: Positive: Rate Normal, Regular Rhythm Abdomen Exam: Positive: Normal bowel sounds, Soft, Other (PEG tube in place) Extremity Exam: Positive: Other (no mitts on); Negative: Edema Assessment /Plan Assessment Mr. Rojas is an 80-year-old male with paroxysmal atrial fibrillation, dysphagia status post PEG tube placement, and dementia who is here from [facility] for worsening shortness of breath. On admission, patient was thought to have with aspiration pneumonia. Patient was initially on Zosyn, transition to ceftriaxone. Procalcitonin was low. Despite antibiotic course, patient still was on 2 L. Pulmonary was consulted. Patient may need to be on oxygen lifelong. Plan/VTE VTE Prophylaxis Ordered?: Yes Plan 1. Acute on chronic hypoxic respiratory failure On admission was on 6 L Currently on 2 L Pulmonary consulted, recommendations appreciated Patient may have MARIA TERESA. He may benefit from sleep study, if he is able to follow instructions Patient may need oxygen level 2. Aspiration pneumonia Patient was thought to have aspiration pneumonia with consolidation on the right lower lobe on admission Patient completed a total of 7 days of antibiotics with a combination of Zosyn and ceftriaxone Procalcitonin low No need for antibiotics at this time 3. Suspected COPD/Asthma Patient not on controller medication for COPD Continue levalbuterol Patient may need a spirometry outpatient, but patient most likely not be able to follow instructions 4. Dysphagia S/p post PEG tube placement Continue tube feeds 5. Paroxysmal atrial fibrillation Continue Eliquis Continue metoprolol tartrate 6. History of CVA Continue Eliquis 7. Prostate cancer Patient has chronic indwelling Mcdonald 8. Dementia Patient is a resident of [facility] Continue olanzapine 9. DVT prophylaxis Continue Eliquis Disposition: If patient does well without mitts, patient may be able to return to [facility] tomorrow with supplemental oxygen VS, I&O, 24H, Lloyd Vital Signs/I&O Vital Signs Date Time Temp Pulse Resp B/P (MAP) Pulse Ox O2 Delivery O2 Flow Rate FiO2 04/08/21 11:48 97.9 73 20 146/75 (98) 93 Nasal Cannula 2.0 I&O- Last 24 Hours up to 6 AM 04/08/21 06:00 Intake Total 1500 ml Output Total 1300 ml Balance 200 ml Laboratory Data 24H LABS Laboratory Tests 2 04/08/21 05:41: Nucleated Red Blood Cells % (auto) 0.2H, Anion Gap 3L, Glomerular Filtration Rate > 60.0, Calcium Level 9.9 CBC/BMP Laboratory Tests 04/08/21 05:41 Microbiology Microbiology 03/31/21 Gram Stain - Final, Complete 03/31/21 Sputum Culture - Final, Complete Klebsiella Oxytoca 03/31/21 Blood Culture - Final, Complete NO GROWTH AFTER 5 DAYS 03/31/21 Blood Culture - Final, Complete NO GROWTH AFTER 5 DAYS 03/31/21 Respiratory Virus Panel (PCR) ([facility]) - Final, Complete SILVER CAICEDO DO Apr 08, 2021 14:53
[2021-04-09] MEDS: SLF 3 ML SYR IV SCH (05:15)
[2021-04-09 06:00] VITALS: BP 132/85
[2021-04-09 06:00] LABS: HEMATOCRIT 46.1 % (42.0-52.0); MEAN CORPUSCULAR HEMOGLOBIN 29.7 pg (27.0-33.0); MEAN CORPUSCULAR HGB CONC 30.4 g/dl (32.0-36.5); MEAN CORPUSCULAR VOLUME 97.9 fl (80.0-96.0); PLATELET COUNT, AUTOMATED 720 10^3/uL (150-450); RED BLOOD COUNT 4.71 10^6/uL (4.30-6.10); WHITE BLOOD COUNT 15.1 10^3/uL (4.0-10.0)
[2021-04-09 06:27] LABS: BLOOD UREA NITROGEN 49 MG/DL (7-18); CALCIUM LEVEL 9.9 MG/DL (8.8-10.2); CARBON DIOXIDE LEVEL 41 MEQ/L (21-32); CHLORIDE LEVEL 100 MEQ/L (98-107); CREATININE FOR GFR 0.89 MG/DL (0.70-1.30); GLOMERULAR FILTRATION RATE > 60.0 (>35); GLUCOSE, FASTING 169 MG/DL (70-100); POTASSIUM SERUM 4.4 MEQ/L (3.5-5.1); SODIUM LEVEL 144 MEQ/L (136-145)
[2021-04-09 08:07] VITALS: BP 123/80
[2021-04-09] MEDS: LACTOBACILLUS ACIDOPHILUS CAP (BACID) PEG SCH (08:22)
[2021-04-09 08:23] VITALS: BP 123/80
[2021-04-09] MEDS: METOPROLOL TART 12.5 MG PER 1/2 TAB GT SCH (08:23)
[2021-04-09] MEDS: OLANZapine 5 MG TAB GT SCH (08:23)
[2021-04-09] MEDS: APIXABAN 5 MG TAB (ELIQUIS) GT SCH (08:23)
[2021-04-09] MEDS: MOM 30ML SUSPENSION UDC GT SCH (08:23)
--- NOTE | 2021-04-09 09:43 | DS.PDOC ---
Discharge Summary General Date of Admission Mar 31, 2021 at 12:49 Date of Discharge Apr 09, 2021 Specialist/Consultants Involve General surgery, Dr. Saba Pulmonary, Dr. Rosado Discharge Summary PROCEDURES PERFORMED DURING STAY: PEG tube replacement on 04/02/21 ADMITTING DIAGNOSES: 1. Acute hypoxic respiratory failure 2. Aspiration pneumonia 3. COPD/Asthma 4. Dysphagia 5. Paroxysmal atrial fibrillation 6. History of CVA 7. Prostate cancer 8. Dementia 9. Leukocytosis DISCHARGE DIAGNOSES: 1. Acute on chronic hypoxic respiratory failure 2. Aspiration pneumonia 3. COPD/Asthma 4. Dysphagia 5. Paroxysmal atrial fibrillation 6. History of CVA 7. Prostate cancer 8. Dementia 9. Leukocytosis COMPLICATIONS/CHIEF COMPLAINT: Aspiration Pneumonia,Dyspnea. HISTORY OF PRESENT ILLNESS: Copied from admitting attending's H&P " 80-year-old male, resident of [facility], sent to emergency department for 2-day history of worsening shortness of breath. He was also noted to have an episode of vomiting this morning. Patient is a poor historian secondary to his baseline dementia. Patient typically saturates well on room air however at present is requiring 6 L of supplemental oxygen. " HOSPITAL COURSE: During hospitalization, patient was treated for aspiration pneumonia with right lower lobe consolidation. Patient was started on Zosyn. Patient on 04/01/21 had pulled out his PEG tube. General surgery replaced PEG tube and patient was put on mitts. Sputum culture grew Klebsiella and antibiotics was switched to ceftriaxone on 04/03/21. Patient's oxygen requirements slowly improved. He was give diuretics. On 04/05/21, patient was started on steroids and breathing treatments. Pulmonary was consulted on 04/06/21. Suspected patient's respiratory failure may be multifactorial and chronic. Patient has history of prior CVA and has chronic use of dextromethorphan. He may also have MARIA TERESA. Recommended discontinuation of dextromethorphan. Also recommended discontinuation of steroid and antibiotics as there was no signs of acute COPD exacerbation or pneumonia. Recommended that patient have PFT and sleep study. Patient may need supplemental oxygen. Otherwise, mitts were removed and patient did well. Today, patient appears well. Denies chest pain or dyspnea. Patient will return to [facility] today. DISCHARGE MEDICATIONS: Please see below. ALLERGIES: Please see below. PHYSICAL EXAMINATION ON DISCHARGE: VITAL SIGNS: Please see below. GENERAL: Comfortable, in no apparent distress. HEENT: Sclera clear. RESPIRATORY: Lungs clear to auscultation bilaterally. CARDIOVASCULAR: Regular rate and rhythm. ABDOMEN: Soft, nontender, normal bowel sounds. MUSCLE SKELETAL: No pitting edema. PSYCHOLOGICAL: Normal mood and affect LABORATORY DATA: Please see below. IMAGING: Radiologist interpretation Chest x-ray on 03/31/2021 New right lower lobe opacity and suspected possible small right pleural effusion. This is seen superimposed upon chronic interstitial change. Consider PA and lateral views of the chest. Chest x-ray on 04/03/2021 Improved atelectatic changes right base. Increased interstitial markings left base unchanged. Mildly prominent heart. PROGNOSIS: Good ACTIVITY: As tolerated. DIET: Tube feeds. DISCHARGE PLAN: Return to [facility] DISPOSITION: [facility]. DISCHARGE INSTRUCTIONS: 1. Follow-up with PCP in 1 week. 2. Follow-up with pulmonology in 1 to 2 weeks. Patient may need sleep study and PFTs. 3. No dextromethorphan. ITEMS TO FOLLOWUP ON ON OUTPATIENT: 1. Leukocytosis. Patient may need to see oncology for outpatient bone marrow biopsy. DISCHARGE CONDITION: Stable. Total time spent discharge planning, discharge summary, medication reconciliation: 45 minutes Vital Signs/I&Os Vital Signs Date Time Temp Pulse Resp B/P (MAP) Pulse Ox O2 Delivery O2 Flow Rate FiO2 04/09/21 08:33 2.0 04/09/21 08:23 80 123/80 04/09/21 06:00 97.8 18 92 Nasal Cannula I&O- Last 24 Hours up to 6 AM 04/09/21 06:00 Intake Total 1350 ml Output Total 675 ml Balance 675 ml Laboratory Data Labs 24H Laboratory Tests 2 04/09/21 05:43: Nucleated Red Blood Cells % (auto) 0.2H, Anion Gap 3L, Glomerular Filtration Rate > 60.0, Calcium Level 9.9 04/09/21 08:22: Coronavirus (COVID-19)(PCR) NEGATIVE CBC/BMP Laboratory Tests 04/09/21 05:43 Microbiology Microbiology 03/31/21 Gram Stain - Final, Complete 03/31/21 Sputum Culture - Final, Complete Klebsiella Oxytoca 03/31/21 Blood Culture - Final, Complete NO GROWTH AFTER 5 DAYS 03/31/21 Blood Culture - Final, Complete NO GROWTH AFTER 5 DAYS 03/31/21 Respiratory Virus Panel (PCR) ([facility]) - Final, Complete Discharge Medications Scheduled Apixaban (Eliquis) 5 Mg Tablet, 5 MG PO BID, (Reported) Esomeprazole Magnesium (Esomeprazole Magnesium) 40 Mg Capsule.dr, 40 MG PO BID, (Reported) Guaifenesin/Dextromethorphan (Tussin Dm Syrup) 118 Ml Syrup, 20 ML PO TID, (Reported) L.acidoph/L.bulg/B.bif/S.therm (Bacid Caplet) 1 Each Tablet, 1 TAB PO DAILY, (Reported) Lactose-Reduced Food (Ensure Enlive) 237 Ml Liquid, 120 ML PO BID, (Reported) Levalbuterol HCl (Levalbuterol HCl) 0.63 Mg/3 Ml Vial.neb, 0.63 MG INH QID, (Reported) 0000, 0600, 1200, 1800 Metoprolol Tartrate (Metoprolol Tartrate) 25 Mg Tablet, 12.5 MG PO BID, (Reported) Milk Of Magnesia (Milk of Magnesia) 2,400 Mg/10 Ml Oral.susp, 30 ML PO DAILY, (Reported) Olanzapine (Olanzapine) 5 Mg Tablet, 5 MG PO DAILY, (Reported) Sennosides/Docusate Sodium (Senna-S Tablet) 1 Each Tablet, 1 TAB PO DAILY, (Reported) Scheduled PRN Acetaminophen (Acetaminophen) 325 Mg Tablet, 650 MG PO Q4H PRN for MILD PAIN (PS 1-4), (Reported) Bisacodyl (Dulcolax) 10 Mg Supp.rect, 10 MG MT DAILY PRN for CONSTIPATION, (Reported) Levalbuterol HCl (Levalbuterol HCl) 0.63 Mg/3 Ml Vial.neb, 0.63 MG INH Q2H PRN for COPD, (Reported) Magnesium Hydroxide (Milk of Magnesia) 400 Mg/5 Ml Oral.susp, 30 ML PO DAILY PRN for CONSTIPATION, (Reported) Sodium Phosphate,[place]-Dibasic (Enema) 133 Ml Enema, 1 [place] MT DAILY PRN for CONSTIPATION, (Reported) Allergies Coded Allergies: No Known Drug Allergies (Verified Allergy, Unknown, 01/31/21) SILVER CAICEDO DO Apr 09, 2021 09:43
== END 2021-04-09 11:15 | DRG 177 ==
LOC: EDBD 09:18 → M ED 09:18 → M ED INP 12:49 → ENRESERV 15:40 → M PCU 16:31 → M MSPAV 04-08 16:42
PROVIDERS: ADMIT Internal Medicine; ATTEND Internal Medicine
DX: J69.0 Pneumonitis due to inhalation of food and vomit (principal); J96.21 Acute and chronic respiratory failure with hypoxia; I50.22 Chronic systolic (congestive) heart failure; I11.0 Hypertensive heart disease with heart failure; I48.91 Unspecified atrial fibrillation; E78.5 Hyperlipidemia, unspecified; Z86.73 Personal history of transient ischemic attack (TIA), and cerebral infarction without residual deficits; Z79.01 Long term (current) use of anticoagulants; Z79.899 Other long term (current) drug therapy; J44.9 Chronic obstructive pulmonary disease, unspecified; F03.90 Unspecified dementia, unspecified severity, without behavioral disturbance, psychotic disturbance, mood disturbance, and anxiety; I48.0 Paroxysmal atrial fibrillation; Z93.1 Gastrostomy status; B96.1 Klebsiella pneumoniae [K. pneumoniae] as the cause of diseases classified elsewhere; M19.90 Unspecified osteoarthritis, unspecified site; Z87.891 Personal history of nicotine dependence; R13.10 Dysphagia, unspecified; C61 Malignant neoplasm of prostate

== ENCOUNTER → 2021-04-13 | Outpatient (REF) | payer MEDICARE, MEDICAID ==
[~2021-04-13] MED LIST changes: +LEVA0.636 INH; +MOM30SS PO
[2021-04-13 10:39] LABS: HEMATOCRIT 44.3 % (42.0-52.0); HEMOGLOBIN 13.3 g/dl (13.5-17.5); MEAN CORPUSCULAR VOLUME 96.5 fl (80.0-96.0); PLATELET COUNT, AUTOMATED 703 10^3/uL (150-450); RED BLOOD COUNT 4.59 10^6/uL (4.30-6.10); WHITE BLOOD COUNT 20.9 10^3/uL (4.0-10.0)
[2021-04-13 11:08] LABS: ALBUMIN 3.2 GM/DL (3.2-5.2); ALT/SGPT 38 U/L (12-78); BILIRUBIN,TOTAL 0.3 MG/DL (0.2-1.0); BLOOD UREA NITROGEN 37 MG/DL (7-18); CALCIUM LEVEL 9.9 MG/DL (8.8-10.2); CARBON DIOXIDE LEVEL 37 MEQ/L (21-32); CHLORIDE LEVEL 101 MEQ/L (98-107); CREATININE FOR GFR 0.83 MG/DL (0.70-1.30); GLOMERULAR FILTRATION RATE > 60.0 (>35); GLUCOSE, FASTING 128 MG/DL (70-100); POTASSIUM SERUM 4.1 MEQ/L (3.5-5.1); SODIUM LEVEL 143 MEQ/L (136-145); TOTAL PROTEIN 8.2 GM/DL (6.4-8.2)
== END ==
PROVIDERS: ATTEND Internal Medicine
DX: T17.900A Unspecified foreign body in respiratory tract, part unspecified causing asphyxiation, initial encounter (principal)

== ENCOUNTER → 2021-04-14 | Outpatient (REF) | payer MEDICARE, MEDICAID ==
[2021-04-14 10:48] LABS: HEMATOCRIT 44.9 % (42.0-52.0); HEMOGLOBIN 13.7 g/dl (13.5-17.5); MEAN CORPUSCULAR HEMOGLOBIN 29.5 pg (27.0-33.0); MEAN CORPUSCULAR HGB CONC 30.5 g/dl (32.0-36.5); MEAN CORPUSCULAR VOLUME 96.8 fl (80.0-96.0); PLATELET COUNT, AUTOMATED 674 10^3/uL (150-450); RED BLOOD COUNT 4.64 10^6/uL (4.30-6.10); WHITE BLOOD COUNT 27.5 10^3/uL (4.0-10.0)
== END ==
PROVIDERS: ATTEND Internal Medicine
DX: T17.900A Unspecified foreign body in respiratory tract, part unspecified causing asphyxiation, initial encounter (principal)

== ENCOUNTER → 2021-04-14 | Outpatient (CLI) | payer MEDICARE, MEDICAID ==
--- NOTE | 2021-04-14 15:07 | REP ---
INDICATION: RECURRENT ASPIRATION COMPARISON: None. TECHNIQUE: Portable AP view of the chest FINDINGS: Examination is limited by portable technique, poor inspiratory effort and underpenetration. Perihilar and lower lobe opacities along with increased pulmonary vasculature and interstitial markings cannot be excluded and may reflect chronic change versus pulmonary vascular congestion/interstitial edema. No definite effusion. No pneumothorax. IMPRESSION: Limited examination. Cannot exclude chronic changes versus cardiomegaly with early pulmonary vascular congestion/interstitial edema. <Electronically signed by Boston Montez > 04/14/21 [id number]
== END ==
PROVIDERS: ATTEND Internal Medicine
DX: J69.0 Pneumonitis due to inhalation of food and vomit (principal)